=== PATIENT | female | born 1935 | race Caucasian/White ===

== ENCOUNTER 2016-07-19 12:36 | Outpatient (RCR) | payer MEDICARE, OTHER ==
[2016-04-28 11:44] VITALS: BP 181/68
[2016-05-26 12:25] VITALS: BP 156/67
[~2016-07-19] VITALS: Ht 147.3 cm; Wt 53.5 kg
[~2016-07-19 12:36] MED LIST: AC325T PO; ACAI PO; ACAI500C9 PO; ACHD5005; ACHD5005 PO; ALN70T; AMIO200T2 PO; AMLO5TAB2 PO; ASP81TEC PO; ASPI1CPM PO; BROM500T3 PO; Benadryl; C250T PO; CA C1TAB70 PO; CAL MAG PO; CEPH-507 PO; CHOL200018 PO; CINNAMON PO; CLC500CT; CLCX100C; CO-Q10; COQ-10 PO; DILT120C82 PO; E400C PO; ELIQUIS PO; ENOX120D SQ; ENXP30I.3 SC; ENXP60I.6 SQ; EST1.25T; FLC1T; FOLI0.4T2 PO; FOLI0.8T PO; FRSM20T; GLUC-113 PO; GLUC-135 PO; GLUC-138 PO; GLUC1CAP37 PO; HDR2T PO; HDR4T PO; HYDR-3729 PO; KCL10CCR; LECITHIN PO; LEVO250T PO; LIPA1CAP2 PO; LSNP10T PO; MAG-5 PO; MECL-124 PO; MECL25TA56 PO; MELA10CA2 PO; MELA10TA2 PO; MELA1TAB PO; MSM PO; MULT1TAB63 PO; MV-M1TAB20 PO; NEBI5TAB8 PO; NF-DICLOTA; NIAC1CAP PO; NIAC500T8 PO; ONDA2VIA IV; PHYT100T PO; PHYT1LIQ PO; PNT40TEC PO; SCOP1PAT TD; SELE200C PO; SELE200T11 PO; SENN1TAB76 PO; SULF1TAB38; UBID300C PO; VINEGAR PO; VIT B-12; VIT D PO; VITA400T7 PO; VITA800C PO; VITAMIN B-12 IM; VITAMIN B12 INJ; VITAMIN K PO; ZINC100T3 PO; ZINC50TA4 PO; ZINC50TA49 PO; [UNRECOGNIZED DRUG - CODE]; [UNRECOGNIZED DRUG - CODE] PO; [UNRECOGNIZED DRUG - CODE] PO; [UNRECOGNIZED DRUG - OTHER] PO; [UNRECOGNIZED DRUG - OTHER] PO; [UNRECOGNIZED DRUG - REMARK] PO; cinnamon PO; vinegar PO; vitamin k PO
[2016-07-19 12:57] VITALS: BP 162/77
== END 2016-07-27 | disposition home or self-care (01) ==
LOC: SDC 12:36
PROVIDERS: ATTEND Nurse Practitioner Family
DX: Z45.2 Encounter for adjustment and management of vascular access device (principal)
CPT/HCPCS: 96523

== ENCOUNTER 2016-11-03 13:04 | Outpatient (RCR) | payer MEDICARE, OTHER ==
--- OUTSIDE RECORDS SUMMARY | 2016-08-17 12:20 | XMS REPORT | Continuity of Care Document ---
Author Author [facility] Organization [facility] Address Unknown Phone Unavailable Allergies Active Description Code Type Severity Reaction Onset Reported/Identified Relationship to Patient Clinical Status Yes oxycodone [id number] Drug Allergy Unknown N/A 02/28/2007 Yes adhesive tape [id number] Drug Allergy Unknown N/A 07/28/2008 Yes diclofenac [id number] Drug Allergy Unknown N/A 09/18/2015 Yes gluten [id number] Drug Allergy Unknown N/A 09/18/2015 Yes tramadol [id number] Drug Allergy Unknown N/A 09/18/2015 Yes amiodarone [id number] Drug Allergy Moderate LIGHTHEADED 03/02/2016 Yes diltiazem [id number] Drug Allergy Moderate LIGHTHEADED 03/02/2016 Yes flecainide [id number] Drug Allergy Moderate LIGHTHEADED 03/02/2016 Yes oxycodone [id number] Drug Allergy Unknown HAS RECEIVED LO 03/03/2016 Medications Problems Date Dx Coded Attending Type Code Diagnosis Diagnosed By 10/05/2009 Ot 153.9 10/05/2009 Ot 280.9 04/06/2010 Ot 153.9 06/21/2010 Ot 153.9 06/21/2010 Ot V58.81 09/20/2010 Ot 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 09/20/2010 Ot V58.81 FIT/ADJ VASCULAR CATHETER 12/15/2010 Ot 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 12/15/2010 Ot V58.81 FIT/ADJ VASCULAR CATHETER 05/23/2011 Ot 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 05/23/2011 Ot V58.81 FIT/ADJ VASCULAR CATHETER 09/04/2011 Ot 813.42 FX DISTAL RADIUS NEC-CL 09/04/2011 Ot 959.3 ELB/FOREARM/WRST INJ NOS 09/04/2011 Ot E000.8 OTHER EXTERNAL CAUSE STATUS 09/04/2011 Ot E013.9 OTHER HOUSEHOLD MAINTENANCE 09/04/2011 Ot E849.0 ACCIDENT IN HOME 09/04/2011 Ot E885.9 FALL FROM SLIPPING, TRIPPING, OR STUMBLI 09/14/2011 Ot 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 09/14/2011 Ot V58.81 FIT/ADJ VASCULAR CATHETER 10/17/2011 Ot 276.1 HYPOSMOLALITY 10/17/2011 Ot 401.9 HYPERTENSION NOS 10/17/2011 Ot 780.4 DIZZINESS AND GIDDINESS 11/18/2011 Ot 276.1 HYPOSMOLALITY 11/18/2011 Ot 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 11/18/2011 Ot 458.0 ORTHOSTATIC HYPOTENSION 11/18/2011 Ot 780.4 DIZZINESS AND GIDDINESS 11/18/2011 Ot V10.05 HX OF COLONIC MALIGNANCY 11/18/2011 Ot V12.54 PERSONAL HX OF TIA, CEREBRAL INFARCTION 11/18/2011 Ot V45.72 ACQRD ABSENCE INTESTINE - LARGE/SMALL 01/16/2012 Ot 923.10 CONTUSION OF FOREARM 01/16/2012 Ot 959.3 ELB/FOREARM/WRST INJ NOS 01/16/2012 Ot E000.8 OTHER EXTERNAL CAUSE STATUS 01/16/2012 Ot E849.0 ACCIDENT IN HOME 01/16/2012 Ot E888.9 FALL NOS 01/16/2012 Ot V06.1 [id number], COMBINED [ 01/19/2012 Ot 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 01/19/2012 Ot V58.81 FIT/ADJ VASCULAR CATHETER 04/19/2012 Ot 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 04/19/2012 Ot V58.81 FIT/ADJ VASCULAR CATHETER 05/18/2012 Ot 211.3 BENIGN NEOPLASM LG BOWEL 05/18/2012 Ot V10.05 HX OF COLONIC MALIGNANCY 05/18/2012 Ot 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 05/18/2012 Ot V45.72 ACQRD ABSENCE INTESTINE - LARGE/SMALL 05/18/2012 Ot V67.09 SURGERY FOLLOW-UP, OTHER SURGERY 01/07/2013 ALONSO HAWKINS, YESIKA [place] Ot 266.2 B-COMPLEX DEFIC NEC 01/07/2013 ALONSO HAWKINS, YESIKA [place] Ot 276.50 VOLUME DEPLETION, UNSPECIFIED 01/07/2013 ALONSO HAWKINS, YESIKA [place] Ot 285.1 AC POSTHEMORRHAG ANEMIA 01/07/2013 ALONSO HAWKINS, YESIKA [place] Ot 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, NEC, FOLLOW 01/07/2013 YESIKA GUPTA MD Ot 564.1 IRRITABLE BOWEL SYNDROME 01/07/2013 YESIKA GUPTA MD Ot 579.0 CELIAC DISEASE 01/07/2013 YESIKA GUPTA MD Ot 715.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 01/07/2013 YESIKA GUPTA MD Ot 733.00 OSTEOPOROSIS NOS 01/07/2013 YESIKA GUPTA MD Ot 737.30 IDIOPATHIC SCOLIOSIS 01/07/2013 YESIKA GUPTA MD Ot E937.9 ADV EFF SEDAT/HYPNOT NOS 01/07/2013 YESIKA GUPTA MD Ot V10.05 HX OF COLONIC MALIGNANCY 01/07/2013 YESIKA GUPTA MD Ot V12.29 PERSONAL HX OF OTH ENDOCRINE, METABOLIC 01/07/2013 YESIKA GUPTA MD Ot V12.54 PERSONAL HX OF TIA, CEREBRAL INFARCTION 01/07/2013 YESIKA GUPTA MD Ot V45.72 ACQRD ABSENCE INTESTINE - LARGE/SMALL 01/21/2013 SUSAN HAWKINS, ULISES E Ot 041.49 OTHER AND UNSPECIFIED ESCHERICHIA COLI [ 01/21/2013 SUSAN HAWKINS, ULISES E Ot 285.9 ANEMIA NOS 01/21/2013 SUSAN HAWKINS, ULISES E Ot 427.31 ATRIAL FIBRILLATION 01/21/2013 SUSAN HAWKINS, ULISES E Ot 564.1 IRRITABLE BOWEL SYNDROME 01/21/2013 SUSAN HAWKINS ULISES E Ot 579.0 CELIAC DISEASE 01/21/2013 SUSAN HAWKINS ULISES E Ot 599.0 URIN TRACT INFECTION NOS 01/21/2013 SUSAN HAWKINS, ULISES E Ot 788.20 RETENTION OF URINE NOS 01/21/2013 SUSAN HAWKINS ULISES E Ot V43.65 KNEE JOINT REPLACEMENT STATUS 01/21/2013 SUSAN HAWKINS ULISES E Ot V54.81 AFTERCARE FOLLOWING JOINT REPLACEMENT 01/21/2013 ULISES DAVIS MD E Ot V57.89 REHABILITATION PROC NEC 03/07/2013 AVE EM MD Ot 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 03/07/2013 AVE EM MD Ot V58.81 FIT/ADJ VASCULAR CATHETER 03/14/2013 YESIKA GUPTA MD Ot V43.65 KNEE JOINT REPLACEMENT STATUS 03/14/2013 YESIKA GUPTA MD Ot V54.81 AFTERCARE FOLLOWING JOINT REPLACEMENT 03/14/2013 ALONSO HAWKINS, YESIKA [place] Ot V57.1 PHYSICAL THERAPY NEC 06/17/2013 MAR[address] ANTONIA HAWKINS, AVE Ot 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 06/17/[address] AN[address]IA HAWKINS, AVE Ot V58.81 FIT/ADJ VASCULAR CATHETER 09/10/2013 TONY TURNER DO Ot V58.81 FIT/ADJ VASCULAR CATHETER 12/30/2013 TONY TURNER DO Ot V58.81 FIT/ADJ VASCULAR CATHETER 03/03/2014 CATHLEEN HAWKINS, SUZIE [place]ola Ot 531.90 STOMACH ULCER NOS 03/03/2014 CATHLEEN HAWKINS, SUZIE [place]ola Ot 532.90 DUODENAL ULCER NOS 05/12/2014 TONY TURNER DO Ot V58.81 FIT/ADJ VASCULAR CATHETER 06/18/2014 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 Ot V58.81 06/18/2014 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 Ot V58.81 06/18/2014 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 Ot V58.81 08/05/2014 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 Ot V58.81 08/07/2014 DENNISE TURNERRICIA L 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 Ot V58.81 09/05/2014 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 Ot V58.81 09/15/2014 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 Ot V58.81 FIT/ADJ VASCULAR CATHETER 10/14/2014 DENNISE TURNERRICIA L 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 Ot V58.81 10/14/2014 DENNISE TURNERRICIA L 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 Ot V58.81 10/14/2014 DENNISE TURNERRICIA L 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 Ot V58.81 10/14/2014 DENNISE TURNERRICIA L 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 Ot V58.81 10/15/2014 DENINSE TURNERRICIA L 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 Ot V58.81 10/31/2014 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 Ot V58.81 11/12/2014 DENNISE TURNERRICVALERIE Andrade 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 Ot V58.81 12/17/2014 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 L 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 Ot V58.81 12/31/2014 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 L 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 Ot V58.81 01/12/2015 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 Ot V58.81 FIT/ADJ VASCULAR CATHETER 01/29/2015 Ot 259.9 01/29/2015 Ot 268.9 01/29/2015 Ot 780.79 01/29/2015 Ot 153.9 01/29/2015 Ot 259.9 01/29/2015 Ot 259.9 01/29/2015 Ot 153.9 01/29/2015 Ot 259.9 01/29/2015 Ot 270.4 01/29/2015 Ot 780.79 01/29/2015 Ot V58.69 01/29/2015 Ot 153.9 01/29/2015 Ot 153.9 01/29/2015 Ot V58.81 01/29/2015 Ot 259.9 01/29/2015 Ot 153.9 01/29/2015 Ot 259.9 01/29/2015 Ot 733.90 01/29/2015 Ot 153.9 01/29/2015 Ot 259.9 01/29/2015 Ot 733.90 01/29/2015 Ot 780.4 01/29/2015 Ot 784.0 01/29/2015 Ot 786.09 01/29/2015 Ot 786.09 01/29/2015 Ot 786.09 01/29/2015 Ot 796.4 01/29/2015 Ot V72.84 01/29/2015 Ot 786.09 01/29/2015 Ot 259.9 01/29/2015 Ot 268.9 01/29/2015 Ot V77.91 01/29/2015 Ot 153.9 01/29/2015 Ot V58.81 01/29/2015 ALONSO HAWKINS, YESIKA [place] Ot 715.96 01/29/2015 ALONSO HAWKINS, YESIKA [place] Ot 780.79 01/29/2015 ALONSO HAWKINS, YESIKA [place] Ot V72.63 01/29/2015 ALONSO HAWKINS, YESIKA [place] Ot V72.81 01/29/2015 ALONSO HAWKINS, YESIKA [place] Ot V72.83 01/29/2015 ALONSO HAWKINS, YESIKA [place] Ot V74.8 01/29/2015 Ot 153.9 01/29/2015 Ot V58.81 01/29/2015 CATHLEEN HAWKINS, SUZIE [place] Ot V72.84 01/29/2015 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 Ot V58.81 01/29/2015 Ot 259.9 01/29/2015 Ot 268.9 01/29/2015 Ot 780.79 01/29/2015 Ot 153.9 01/29/2015 Ot 259.9 01/29/2015 Ot 259.9 01/29/2015 Ot 153.9 01/29/2015 Ot 259.9 01/29/2015 Ot 270.4 01/29/2015 Ot 780.79 01/29/2015 Ot V58.69 01/29/2015 Ot 153.9 01/29/2015 Ot 153.9 01/29/2015 Ot V58.81 01/29/2015 Ot 259.9 01/29/2015 Ot 153.9 01/29/2015 Ot 259.9 01/29/2015 Ot 733.90 01/29/2015 Ot 153.9 01/29/2015 Ot 259.9 01/29/2015 Ot 733.90 01/29/2015 Ot 780.4 01/29/2015 Ot 784.0 01/29/2015 Ot 786.09 01/29/2015 Ot 786.09 01/29/2015 Ot 786.09 01/29/2015 Ot 796.4 01/29/2015 Ot V72.84 01/29/2015 Ot 786.09 01/29/2015 Ot 259.9 01/29/2015 Ot 268.9 01/29/2015 Ot V77.91 01/29/2015 Ot 153.9 01/29/2015 Ot V58.81 01/29/2015 ALONSO HAWKINS, YESIKA [place] Ot 715.96 01/29/2015 ALONSO HAWKINS, YESIKA [place] Ot 780.79 01/29/2015 ALONSO HAWKINS, YESIKA [place] Ot V72.63 01/29/2015 ALONSO HAWKINS, YESIKA [place] Ot V72.81 01/29/2015 ALONSO HAWKINS, YESIKA [place] Ot V72.83 01/29/2015 ALONSO HAWKINS, YESIKA [place] Ot V74.8 01/29/2015 Ot 153.9 01/29/2015 Ot V58.81 01/29/2015 CATHLEEN HAWKINS, SUZIE [place] Ot V72.84 01/29/2015 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 Ot V58.81 02/20/2015 TONY TURNER DO Ot 733.90 02/27/2015 TONY TURNER DO Ot 611.72 03/02/2015 JOHNNYARNULFO 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 Ot V58.81 03/03/2015 JOHNNY ARNULFO Andrade 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 Ot V58.81 03/03/2015 JOHNNY ARNULFO Andrade 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 Ot V58.81 03/03/2015 JOHNNY ARNULFO Andrade 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 Ot V58.81 03/03/2015 JOHNNY ARNULFO Andrade 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 Ot V58.81 03/06/2015 TONY TURNER DO Ot 733.90 03/06/2015 JOHNNYARNULFO 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 Ot V58.81 03/06/2015 Ot 153.9 03/06/2015 Ot 259.9 03/06/2015 Ot 259.9 03/06/2015 Ot 153.9 03/06/2015 Ot 259.9 03/06/2015 Ot 270.4 03/06/2015 Ot 780.79 03/06/2015 Ot V58.69 03/06/2015 Ot 153.9 03/06/2015 Ot 153.9 03/06/2015 Ot V58.81 03/06/2015 Ot 259.9 03/06/2015 Ot 153.9 03/06/2015 Ot 259.9 03/06/2015 Ot 733.90 03/06/2015 Ot 153.9 03/06/2015 Ot 259.9 03/06/2015 Ot 733.90 03/06/2015 Ot 780.4 03/06/2015 Ot 784.0 03/06/2015 Ot 786.09 03/06/2015 Ot 786.09 03/06/2015 Ot 786.09 03/06/2015 Ot 796.4 03/06/2015 Ot V72.84 03/06/2015 Ot 786.09 03/06/2015 Ot 259.9 03/06/2015 Ot 268.9 03/06/2015 Ot V77.91 03/06/2015 Ot 153.9 03/06/2015 Ot V58.81 03/06/2015 ALONSO HAWKINS, YESIKA [place] Ot 715.96 03/06/2015 ALONSO HAWKINS, YESIKA [place] Ot 780.79 03/06/2015 ALONSO HAWKINS, YESIKA [place] Ot V72.63 03/06/2015 ALONSO HAWKINS, YESIKA [place] Ot V72.81 03/06/2015 ALONSO HAWKINS, YESIKA [place] Ot V72.83 03/06/2015 ALONSO HAWKINS, YESIKA [place] Ot V74.8 03/06/2015 Ot 153.9 03/06/2015 Ot V58.81 03/06/2015 CATHLEEN HAWKINS, SUZIE [place] Ot V72.84 03/06/2015 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 Ot V58.81 03/06/2015 TONY TURNER DO Ot 733.90 03/06/2015 TONY TURNER DO Ot 611.72 03/13/2015 TONY TURNER DO Ot 611.72 03/31/2015 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 Ot V58.81 04/06/2015 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 Ot V58.81 04/08/2015 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 Ot V58.81 FIT/ADJ VASCULAR CATHETER 05/04/2015 Ot 259.9 05/04/2015 Ot 153.9 05/04/2015 Ot 259.9 05/04/2015 Ot 270.4 05/04/2015 Ot 780.79 05/04/2015 Ot V58.69 05/04/2015 Ot 153.9 05/04/2015 Ot 153.9 05/04/2015 Ot V58.81 05/04/2015 Ot 259.9 05/04/2015 Ot 153.9 05/04/2015 Ot 259.9 05/04/2015 Ot 733.90 05/04/2015 Ot 153.9 05/04/2015 Ot 259.9 05/04/2015 Ot 733.90 05/04/2015 Ot 780.4 05/04/2015 Ot 784.0 05/04/2015 Ot 786.09 05/04/2015 Ot 786.09 05/04/2015 Ot 786.09 05/04/2015 Ot 796.4 05/04/2015 Ot V72.84 05/04/2015 Ot 786.09 05/04/2015 Ot 259.9 05/04/2015 Ot 268.9 05/04/2015 Ot V77.91 05/04/2015 Ot 153.9 05/04/2015 Ot V58.81 05/04/2015 YESIKA GUPTA MD Ot 715.96 05/04/2015 YESIKA GUPTA MD Ot 780.79 05/04/2015 ALONSO HAWKINS, YESIKA [place] Ot V72.63 05/04/2015 ALONSO HAWKINS, YESIKA [place] Ot V72.81 05/04/2015 ALONSO HAWKINS, YESIKA [place] Ot V72.83 05/04/2015 ALONSO HAWKINS, YESIKA [place] Ot V74.8 05/04/2015 Ot 153.9 05/04/2015 Ot V58.81 05/04/2015 CATHLEEN HAWKINS, SUZIE [place] Ot V72.84 05/04/2015 TONY TURNER DO Ot 733.90 05/04/2015 TONY TURNER DO Ot 611.72 05/04/2015 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 Ot V58.81 05/04/2015 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 Ot V58.81 05/05/2015 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 Ot V58.81 06/01/2015 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 Ot Z45.2 06/25/2015 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 Ot Z45.2 07/28/2015 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 Ot Z45.2 08/02/2015 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 Ot Z45.2 ENCOUNTER FOR ADJUSTMENT AND MANAGEMENT 08/19/2015 MASON BELLO MD Ot K63.5 POLYP OF COLON 08/19/2015 MASON BELLO MD Ot K64.0 FIRST DEGREE HEMORRHOIDS 08/19/2015 MASON BELLO MD Ot Z85.038 PERSONAL HISTORY OF MALIGNANT NEOPLASM O 09/12/2015 KUMAR REED MD Ot I10 ESSENTIAL (PRIMARY) HYPERTENSION 09/12/2015 KUMAR REED MD Ot I48.91 UNSPECIFIED ATRIAL FIBRILLATION 09/12/2015 KUMAR REED MD Ot Z79.02 SURFACE LOGGING SYSTEMS LOGGER (CURRENT) USE OF ANTITHROMBOTI 09/17/2015 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 Ot Z45.2 09/18/2015 Ot 153.9 09/18/2015 Ot 153.9 09/18/2015 Ot V58.81 09/18/2015 Ot 259.9 09/18/2015 Ot 153.9 09/18/2015 Ot 259.9 09/18/2015 Ot 733.90 09/18/2015 Ot 153.9 09/18/2015 Ot 259.9 09/18/2015 Ot 733.90 09/18/2015 Ot 780.4 09/18/2015 Ot 784.0 09/18/2015 Ot 786.09 09/18/2015 Ot 786.09 09/18/2015 Ot 786.09 09/18/2015 Ot 796.4 09/18/2015 Ot V72.84 09/18/2015 Ot 786.09 09/18/2015 Ot 259.9 09/18/2015 Ot 268.9 09/18/2015 Ot V77.91 09/18/2015 Ot 153.9 09/18/2015 Ot V58.81 09/18/2015 ALONSO HAWKINS, YESIKA [place] Ot 715.96 09/18/2015 ALONSO HAWKINS, YESIKA P Ot 780.79 09/18/2015 ALONSO HAWKINS, YESIKA P Ot V72.63 09/18/2015 ALONSO HAWKINS, YESIKA P Ot V72.81 09/18/2015 ALONSO HAWKINS, YESIKA P Ot V72.83 09/18/2015 ALOSNO HAWKINS, YESIKA P Ot V74.8 09/18/2015 Ot 153.9 09/18/2015 Ot V58.81 09/18/2015 CATHLEEN HAWKINS, SUZIE [place] Ot V72.84 09/18/2015 TONY TURNER DO Ot 733.90 09/18/2015 TONY TURNER DO Ot 611.72 09/18/2015 TONY TURNER DO Ot M41.9 09/18/2015 TONY TURNER DO Ot M54.2 09/18/2015 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 Ot Z45.2 09/18/2015 MASON BELLO MD Ot Z01.818 09/18/2015 MASON BELLO MD Ot Z85.038 09/18/2015 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 Ot Z45.2 09/18/2015 Ot 153.9 09/18/2015 Ot V58.81 09/18/2015 TONY TURNER DO Ot M41.9 09/18/2015 TONY TURNER DO Ot M54.2 09/18/2015 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 Ot Z45.2 09/18/2015 TONY TURNER DO Ot M41.9 09/18/2015 TONY TURNER DO Ot M54.2 09/18/2015 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 Ot Z45.2 09/21/2015 TONY TURNER DO Ot I48.91 10/02/2015 Ot 153.9 10/02/2015 Ot 153.9 10/02/2015 Ot V58.81 10/02/2015 Ot 259.9 10/02/2015 Ot 153.9 10/02/2015 Ot 259.9 10/02/2015 Ot 733.90 10/02/2015 Ot 153.9 10/02/2015 Ot 259.9 10/02/2015 Ot 733.90 10/02/2015 Ot 780.4 10/02/2015 Ot 784.0 10/02/2015 Ot 786.09 10/02/2015 Ot 786.09 10/02/2015 Ot 786.09 10/02/2015 Ot 796.4 10/02/2015 Ot V72.84 10/02/2015 Ot 786.09 10/02/2015 Ot 259.9 10/02/2015 Ot 268.9 10/02/2015 Ot V77.91 10/02/2015 Ot 153.9 10/02/2015 Ot V58.81 10/02/2015 ALONSO HAWKINS, YESIKA [place] Ot 715.96 10/02/2015 ALONSO HAWKINS, YESIKA [place] Ot 780.79 10/02/2015 ALONSO HAWKINS, YESIKA [place] Ot V72.63 10/02/2015 ALONSO HAWKINS, YESIKA [place] Ot V72.81 10/02/2015 ALNOSO HAWKINS, YESIKA [place] Ot V72.83 10/02/2015 ALONSO HAWKINS, YESIKA [place] Ot V74.8 10/02/2015 Ot 153.9 10/02/2015 Ot V58.81 10/02/2015 CATHLEEN HAWKINS, SUZIE [place] Ot V72.84 10/02/2015 TONY TURNER DO Ot 733.90 10/02/2015 TONY TURNER DO Ot 611.72 10/02/2015 TONY TURNER DO Ot M41.9 10/02/2015 TONY TURNER DO Ot M54.2 10/02/2015 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 Ot Z45.2 10/02/2015 EUGENIA HAWKINS, MASON Ot Z01.818 10/02/2015 MASON BELLO MD Ot Z85.038 10/02/2015 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 Ot Z45.2 10/02/2015 TONY TURNER DO Ot I48.2 10/02/2015 TONY TURNER DO Ot I48.91 10/02/2015 ARIANE MUNROE MD, Ot I48.91 UNSPECIFIED ATRIAL FIBRILLATION 10/02/2015 ARIANE MUNROE MD, Ot Z79.01 DETENTION (CURRENT) USE OF ANTICOAGULANT 10/02/2015 ARIANE MUNROE MD Ot Z79.4 SURFACE LOGGING SYSTEMS LOGGER (CURRENT) USE OF INSULIN 10/05/2015 ARIANE MUNROE MD, Ot I48.91 10/05/2015 ARIANE MUNROE MD, Ot Z79.01 10/05/2015 ARIANE MUNROE MD, Ot Z79.4 10/13/2015 TONY TURNER DO Ot I48.2 10/14/2015 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P Ot Z45.2 10/15/2015 TONY TURNER DO Ot I48.91 10/15/2015 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 Ot Z45.2 10/25/2015 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P Ot Z45.2 ENCOUNTER FOR ADJUSTMENT AND MANAGEMENT 10/26/2015 TONY TURNER DO Ot I48.2 CHRONIC ATRIAL FIBRILLATION 10/27/2015 TONY TURNER DO Ot I48.91 UNSPECIFIED ATRIAL FIBRILLATION 11/04/2015 TONY TURNER DO Ot M41.9 SCOLIOSIS, UNSPECIFIED 11/04/2015 TONY TURNER DO Ot M54.5 LOW BACK PAIN 11/10/2015 HONORIO ABBOTT APRN Ot I48.91 UNSPECIFIED ATRIAL FIBRILLATION 11/10/2015 HONORIO ABBOTT APRN Ot S61.212A LACERATION W/O FB OF R MID FINGER W/O DA 11/10/2015 HONORIO ABBOTT APRN Ot S61.216A LAC W/O FB OF R LITTLE FINGER W/O DAMAGE 11/10/2015 HONORIO ABBOTT APRN Ot W45.8XXA OTH FOREIGN BODY OR OBJECT ENTERING THRO 11/10/2015 HONORIO ABBOTT APRN Ot Y92.009 [facility] PL[facility] IN [facility] NON-INSTITUT ( PRIVATE 11/10/2015 HONORIO ABBOTT PLASTICS SHEET FINISHING PRESS OPERATOR Ot Y99.8 OTHER EXTERNAL CAUSE STATUS 11/10/2015 HONORIO ABBOTT PLASTICS SHEET FINISHING PRESS OPERATOR Ot Z23 ENCOUNTER FOR IMMUNIZATION 11/10/2015 HONORIO ABBOTT APRN Ot Z79.01 DETENTION (CURRENT) USE OF ANTICOAGULANT 11/11/2015 TONY TURNER DO Ot E87.1 HYPO-OSMOLALITY AND HYPONATREMIA 11/12/2015 TONY TURNER DO Ot E87.1 HYPO-OSMOLALITY AND HYPONATREMIA 11/23/2015 TONY RANDALL MD Ot I48.0 PAROXYSMAL ATRIAL FIBRILLATION 11/23/2015 TONY RANDALL MD, Ot I48.0 PAROXYSMAL ATRIAL FIBRILLATION 11/25/2015 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P Ot Z45.2 ENCOUNTER FOR ADJUSTMENT AND MANAGEMENT 11/25/2015 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P Ot Z45.2 ENCOUNTER FOR ADJUSTMENT AND MANAGEMENT 11/26/2015 TONY RANDALL MD Ot I48.0 PAROXYSMAL ATRIAL FIBRILLATION 11/29/2015 TONY TURNER DO Ot M41.9 SCOLIOSIS, UNSPECIFIED 11/29/2015 TONY TURNER DO Ot M54.5 LOW BACK PAIN 11/30/2015 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 Ot Z45.2 ENCOUNTER FOR ADJUSTMENT AND MANAGEMENT 12/01/2015 TONY TURNER DO Ot E87.1 HYPO-OSMOLALITY AND HYPONATREMIA 12/15/2015 TONY RANDALL MD Ot I48.0 PAROXYSMAL ATRIAL FIBRILLATION 12/16/2015 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 Ot Z45.2 ENCOUNTER FOR ADJUSTMENT AND MANAGEMENT 12/29/2015 TONY RANDALL MD Ot I48.0 PAROXYSMAL ATRIAL FIBRILLATION 01/06/2016 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 Ot Z45.2 ENCOUNTER FOR ADJUSTMENT AND MANAGEMENT 01/06/2016 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 Ot Z45.2 ENCOUNTER FOR ADJUSTMENT AND MANAGEMENT 02/19/2016 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 Ot Z45.2 ENCOUNTER FOR ADJUSTMENT AND MANAGEMENT 03/02/2016 Ot 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 03/02/2016 Ot V58.81 FIT/ADJ VASCULAR CATHETER 03/02/2016 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 Ot Z45.2 ENCOUNTER FOR ADJUSTMENT AND MANAGEMENT 03/02/2016 MASON BELLO MD, Ot K40.90 UNIL INGUINAL HERNIA, W/O OBST OR GANGR, 03/02/2016 MASON BELLO MD, Ot Z01.818 ENCOUNTER FOR OTHER PREPROCEDURAL EXAMIN 03/03/2016 Ot 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 03/03/2016 Ot V58.81 FIT/ADJ VASCULAR CATHETER 03/03/2016 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 Ot Z45.2 ENCOUNTER FOR ADJUSTMENT AND MANAGEMENT 03/03/2016 MASON BELLO MD Ot I48.91 UNSPECIFIED ATRIAL FIBRILLATION 03/03/2016 MASON BELLO MD, Ot K40.90 UNIL INGUINAL HERNIA, W/O OBST OR GANGR, 03/03/2016 MASON BELLO MD Ot Z79.02 DETENTION (CURRENT) USE OF ANTITHROMBOTI 03/03/2016 MASON BELLO MD Ot Z85.038 PERSONAL HISTORY OF MALIGNANT NEOPLASM O 03/04/2016 MASON BELLO MD, Ot K40.90 UNIL INGUINAL HERNIA, W/O OBST OR GANGR, 03/04/2016 MASON BELLO MD Ot Z01.818 ENCOUNTER FOR OTHER PREPROCEDURAL EXAMIN 03/07/2016 MASON BELLO MD, Ot I48.91 UNSPECIFIED ATRIAL FIBRILLATION 03/07/2016 MASON BELLO MD, Ot K40.90 UNIL INGUINAL HERNIA, W/O OBST OR GANGR, 03/07/2016 MASON BELLO MD Ot Z79.02 DETENTION (CURRENT) USE OF ANTITHROMBOTI 03/07/2016 MASON BELLO MD Ot Z85.038 PERSONAL HISTORY OF MALIGNANT NEOPLASM O 03/09/2016 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 Ot Z45.2 ENCOUNTER FOR ADJUSTMENT AND MANAGEMENT 03/09/2016 Ot 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 03/09/2016 Ot 259.9 ENDOCRINE DISORDER NOS 03/09/2016 Ot 733.90 BONE CARTILAGE DIS NOS 03/09/2016 Ot 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 03/09/2016 Ot 259.9 ENDOCRINE DISORDER NOS 03/09/2016 Ot 733.90 BONE CARTILAGE DIS NOS 03/09/2016 Ot 780.4 DIZZINESS AND GIDDINESS 03/09/2016 Ot 784.0 HEADACHE 03/09/2016 Ot 786.09 RESPIRATORY ABNORM NEC 03/09/2016 Ot 786.09 RESPIRATORY ABNORM NEC 03/09/2016 Ot 786.09 RESPIRATORY ABNORM NEC 03/09/2016 Ot 796.4 ABN CLINICAL FINDING NEC 03/09/2016 Ot V72.84 EXAM PRE-OPERATIVE NOS 03/09/2016 Ot 786.09 RESPIRATORY ABNORM NEC 03/09/2016 Ot 259.9 ENDOCRINE DISORDER NOS 03/09/2016 Ot 268.9 VITAMIN D DEFICIENCY NOS 03/09/2016 Ot V77.91 SCREEN LIPOID DISORDERS 03/09/2016 Ot 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 03/09/2016 Ot V58.81 FIT/ADJ VASCULAR CATHETER 03/09/2016 ALONSO HAWKINS, YESIKA [place] Ot 715.96 OSTEOARTHROS NOS-L/LEG 03/09/2016 YESIKA GUPTA MD Ot 780.79 OTH MALAISE FATIGUE 03/09/2016 YESIKA GUPTA MD Ot V72.63 PRE-PROCEDURAL LABORATORY EXAMINATION 03/09/2016 YESIKA GUPTA MD Ot V72.81 BXHI-AQA-CENBFSZVE CARDIOVASCULAR 03/09/2016 YESIKA GUPTA MD Ot V72.83 EXAM PRE-OPERATIVE NEC 03/09/2016 YESIKA GUPTA MD Ot V74.8 SCREEN-BACTERIAL DIS NEC 03/09/2016 Ot 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 03/09/2016 Ot V58.81 FIT/ADJ VASCULAR CATHETER 03/09/2016 CATHLEEN HAWKINS, SUZIE [place] Ot V72.84 EXAM PRE-OPERATIVE NOS 03/09/2016 TONY TURNER DO Ot 733.90 BONE CARTILAGE DIS NOS 03/09/2016 TONY TURNER DO Ot 611.72 LUMP OR MASS IN BREAST 03/09/2016 EUGENIA HAWKINS, MASON Ot Z01.818 ENCOUNTER FOR OTHER PREPROCEDURAL EXAMIN 03/09/2016 MASON BELLO MD Ot Z85.038 PERSONAL HISTORY OF MALIGNANT NEOPLASM O 03/09/2016 TONY TURNER DO Ot I48.2 CHRONIC ATRIAL FIBRILLATION 03/09/2016 TONY TURNER DO Ot I48.91 UNSPECIFIED ATRIAL FIBRILLATION 03/09/2016 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 Ot Z45.2 ENCOUNTER FOR ADJUSTMENT AND MANAGEMENT 03/09/2016 TONY TURNER DO Ot E87.1 HYPO-OSMOLALITY AND HYPONATREMIA 03/09/2016 TONIA HAWKINS, TONY Bhat Ot I48.0 PAROXYSMAL ATRIAL FIBRILLATION 03/09/2016 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 Ot Z45.2 ENCOUNTER FOR ADJUSTMENT AND MANAGEMENT 03/10/2016 TONY TURNER DO Ot R55 SYNCOPE AND COLLAPSE 03/23/2016 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 Ot Z45.2 ENCOUNTER FOR ADJUSTMENT AND MANAGEMENT 03/31/2016 TONY TURNER DO Ot R55 SYNCOPE AND COLLAPSE 04/05/2016 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 Ot Z45.2 ENCOUNTER FOR ADJUSTMENT AND MANAGEMENT 04/06/2016 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 Ot Z45.2 ENCOUNTER FOR ADJUSTMENT AND MANAGEMENT 04/11/2016 TONY TURNER DO Ot R55 SYNCOPE AND COLLAPSE 04/11/2016 TONY TURNER DO Ot R55 SYNCOPE AND COLLAPSE 04/25/2016 TONY TURNER DO Ot R55 SYNCOPE AND COLLAPSE 04/28/2016 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 L 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 Ot Z45.2 ENCOUNTER FOR ADJUSTMENT AND MANAGEMENT 04/28/2016 JANET TURNERIA L 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 Ot Z45.2 ENCOUNTER FOR ADJUSTMENT AND MANAGEMENT 05/16/2016 JANET TURNERIA Raymond 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 Ot Z45.2 ENCOUNTER FOR ADJUSTMENT AND MANAGEMENT 05/26/2016 JANET TURNERIA L 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 Ot Z45.2 ENCOUNTER FOR ADJUSTMENT AND MANAGEMENT 06/01/2016 JANET TURNERIA L 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 Ot Z45.2 ENCOUNTER FOR ADJUSTMENT AND MANAGEMENT 06/07/2016 TONY TURNER DO Ot R55 SYNCOPE AND COLLAPSE 06/17/2016 JANET TURNERIA L 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 Ot Z45.2 ENCOUNTER FOR ADJUSTMENT AND MANAGEMENT 07/19/2016 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 Ot Z45.2 ENCOUNTER FOR ADJUSTMENT AND MANAGEMENT 07/19/2016 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 L 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 Ot Z45.2 ENCOUNTER FOR ADJUSTMENT AND MANAGEMENT 07/20/2016 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 Ot Z45.2 ENCOUNTER FOR ADJUSTMENT AND MANAGEMENT 07/27/2016 JOHNNY ARNULFO Raymond JACKSON Ot Z45.2 ENCOUNTER FOR ADJUSTMENT AND MANAGEMENT Procedures Code Description Performed By Performed On 81.54 01/02/2013 Results Test Result Range Methicillin resistant Staphylococcus aureus (MRSA) screening culture - 11:50 Methicillin resistant Staphylococcus aureus (MRSA) screening culture NEG NRG Automated blood complete blood count (hemogram) panel - 03/03/16 12:01 Blood leukocytes automated count (number/volume) 8.1 10*3/ uL 4.3-11.0 Blood erythrocytes automated count (number/volume) 3.97 10*6 /uL 4.35-5.85 Venous blood hemoglobin measurement (mass/volume) 12.4 g/dL 11.5-16.0 Blood hematocrit (volume fraction) 37 % 35-52 Automated erythrocyte mean corpuscular volume 92 [foz_us] 80-99 Automated erythrocyte mean corpuscular hemoglobin (mass per erythrocyte) 31 pg 25-34 Automated erythrocyte mean corpuscular hemoglobin concentration measurement ( mass/volume) 34 g/dL 32-36 Automated erythrocyte distribution width ratio 14.2 % 10.0-14.5 Automated blood platelet count (count/volume) 222 10*3/uL 130-400 Automated blood platelet mean volume measurement 10.5 [foz_ us] 7.4-10.4 Encounters ACCT No. Visit Date/Time Discharge Status Pt. Type Provider Facility Loc./Unit Complaint [id number] 07/19/2016 12:36:00 2016 00:01:00 DIS Outpatient 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 Via [facility] [id number] 03/09/2016 11:11:00 2015 00:01:00 DIS Outpatient TONY TURNER DO Via [facility] CARD SYNCOPE [id number] 01/06/2016 12:48:00 2015 00:01:00 DIS Outpatient 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 Via [facility] [id number] 03/03/2016 11:35:00 2015 18:45:00 DIS Outpatient MASON BELLO MD Via [facility] RIGHT INGUINAL HERNIA [id number] 03/02/2016 08:44:00 2015 09:34:00 DIS Outpatient MASON BELLO MD Via [facility] PREOP RIGHT INGUINAL HERNIA [id number] 11/25/2015 13:58:00 2015 00:01:00 DIS Outpatient 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 Via [facility] [place] [id number] 11/10/2015 21:10:00 2015 22:54:00 DIS Emergency HONORIO ABBOTT APRN Via [facility] ER R HAND FINGER INJ [id number] 10/01/2015 09:57:00 2015 00:01:00 DIS Outpatient TONY TURNER DO Via [facility] REHAB LUMBAGO; SCOLIOSIS [id number] 07/27/2015 09:51:00 2015 00:01:00 DIS Outpatient 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P Via [facility] [place] [id number] 10/02/2015 00:19:00 2015 02:14:00 DIS Emergency ARIANE MUNROE MD Via [facility] ER A-FIB [id number] 09/12/2015 20:34:00 2015 21:45:00 DIS Emergency KUMAR REED MD Via [facility] ER IRR HEART RATE/SOA [id number] 08/19/2015 09:34:00 2015 13:35:00 DIS Outpatient MASON BELLO MD Via [facility] HISTORY OF COLON CANCER [id number] 05/04/2015 11:57:00 2015 00:01:00 DIS Outpatient 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P Via [facility] [place] [id number] 04/06/2015 11:05:00 2014 00:01:00 DIS 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[facility] [place] [id number] 02/06/2015 09:53:00 2014 23:59:59 CLS Outpatient TONY TURNER DO Via [facility] RAD LUMP HEMATOMA [id number] 01/29/2015 08:13:00 2014 23:59:59 CLS Outpatient TONY TURNER DO Via [facility] RAD OSTEOPORSIS [id number] 12/17/2014 11:02:00 2014 00:01:00 DIS 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[facility] PORT [id number] 08/05/2014 11:07:00 2014 23:59:59 CLS 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[facility] PORT [id number] 05/02/2014 13:47:00 2013 00:01:00 [id number] 03/03/2014 07:19:00 2013 10:40:00 DIS Outpatient SUZIE CONNOLLY MD Via [facility] UPPER GASTRIC PAIN; ABDOMINAL PAIN [id number] 02/27/2014 09:14:00 2013 23:59:59 CLS Outpatient SUZIE CONNOLLY MD Via [facility] PREOP UPPER GASTRIC PAIN; ABDOMINAL PAIN [id number] 12/19/2013 11:24:00 2013 00:01:00 DIS [facility] [id number] 07/22/2013 11:37:00 2013 00:01:00 DIS [facility] [id number] 06/12/2013 10:52:00 2012 00:01:[address] EM MD Via [facility] FLU [id number] 03/12/2013 08:54:00 2012 10:53:00 DIS Outpatient YESIKA GUPTA MD Via [facility] REHAB B TKR [id number] 12/07/2012 11:41:00 2012 00:01:00 DIS Outpatient MARIA ANTONIA HAWKINS, GARCIALindyIDANIA Via [facility] ONC PORT FLUSH [id number] 01/07/2013 10:10:00 2012 12:30:00 DIS Inpatient SUSAN HAWKINS, ULISES Law Via [facility] IRF DEGENERATIVE ARTHRITIS [id number] 01/02/2013 06:05:00 2012 10:10:00 DIS Inpatient YESIKA GUPTA MD Via [facility] SURGICAL DEGENERATIVE ARTHRITIS [id number] 12/26/2012 09:47:00 2012 23:59:59 CLS Outpatient YESIKA GUPTA MD Via [facility] PREOP DEGENERATIVE ARTHRITIS [id number] 07/28/2016 00:10:00 PEN Preadmit 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 [id number] 06/08/2016 11:30:00 PEN Preadmit TONY TURNER DO Via [facility] CARD SYNCOPE [id number] 03/18/2016 13:25:00 ACT Outpatient TONY TURNER DO Via [facility] RAD R55 [id number] 11/20/2015 14:07:00 ACT Outpatient TONY RANDALL MD Via [facility] CARD PROXYSMAL A FIB [id number] 11/10/2015 21:25:00 ACT Outpatient TONY TURNER DO Via [facility] LABNPT Cachexia and hypernatremia [id number] 11/05/2015 00:08:00 PEN Preadmit TONY TURNER DO Via [facility] REHAB [id number] 10/26/2015 00:08:00 PEN Preadmit 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 [id number] 09/18/2015 07:23:00 ACT Outpatient TONY TURNER DO Via [facility] CARD UNSPECIFIED A-FIB [id number] 09/17/2015 13:05:00 ACT Outpatient TONY TURNER DO Via [facility] CARD CHRONIC A-FIB I48.2 [id number] 08/18/2015 05:39:00 ACT Outpatient MASON BELLO MD Via [facility] PREOP SCREENING [id number] 01/29/2015 08:10:00 Document Registration [id number] 01/29/2015 08:09:00 Document Registration [id number] 01/29/2015 08:09:00 Document Registration [id number] 01/29/2015 08:09:00 Document Registration [id number] 01/29/2015 08:09:00 Document Registration [id number] 01/29/2015 08:09:00 Document Registration [id number] 06/18/2013 00:00:00 Document Registration [id number] 10/19/2012 13:42:00 Document Registration [id number] 08/22/2012 08:23:00 Document Registration [id number] 05/18/2012 09:04:00 Document Registration [id number] 05/17/2012 07:23:00 Document Registration [id number] 05/16/2012 06:44:00 Document Registration [id number] 04/20/2012 09:49:00 Document Registration [id number] 04/11/2012 05:59:00 Document Registration [id number] 04/03/2012 10:24:00 Document Registration [id number] 01/16/2012 10:05:00 Document Registration [id number] 11/16/2011 22:00:00 Document Registration [id number] 10/26/2011 08:59:00 Document Registration [id number] 10/21/2011 11:12:00 Document Registration [id number] 10/15/2011 19:35:00 Document Registration [id number] 09/04/2011 07:50:00 Document Registration [id number] 08/31/2011 10:41:00 Document Registration [id number] 12/21/2010 08:38:00 Document Registration [id number] 12/21/2010 08:26:00 Document Registration [id number] 10/19/2010 11:29:00 Document Registration [id number] 09/10/2010 11:45:00 Document Registration [id number] 07/20/2010 13:25:00 Document Registration [id number] 04/21/2010 15:03:00 Document Registration [id number] 03/23/2010 09:31:00 Document Registration [id number] 01/06/2010 08:26:00 Document Registration [id number] 11/27/2009 08:20:00 Document Registration [id number] 09/30/2009 08:47:00 Document Registration [id number] 09/30/2009 08:40:00 Document Registration [id number] 08/31/2009 10:14:00 Document Registration
[2016-08-17 12:42] VITALS: BP 161/82
[2016-10-06 13:40] VITALS: BP 154/78
[~2016-11-03] VITALS: Ht 147.3 cm; Wt 53.5 kg
[2016-11-03 13:40] VITALS: BP 184/87
== END 2016-11-15 | disposition home or self-care (01) ==
LOC: SDC 13:04
PROVIDERS: ATTEND Nurse Practitioner Family
DX: Z45.2 Encounter for adjustment and management of vascular access device (principal)
CPT/HCPCS: 96523

== ENCOUNTER 2016-12-28 09:05 | Outpatient (CLI) | payer MEDICARE, OTHER ==
[~2016-12-28] VITALS: Ht 147.3 cm; Wt 54.4 kg
[2016-12-28] MEDS ORDERED: DIGO125T PO (13:23)
[2016-12-28] MEDS ORDERED: CA C1TAB78 PO (13:23)
[2016-12-28] MEDS ORDERED: FEXO180T84 PO (13:23)
[2016-12-28] MEDS ORDERED: VITA400C58 PO (13:23)
[2016-12-28] MEDS ORDERED: FERR160T5 PO (13:23)
[2016-12-28] MEDS ORDERED: LACT1CAP64 PO (13:23)
[2016-12-28] MEDS ORDERED: APIX5TAB PO (13:23)
[2016-12-28] MEDS ORDERED: DISO150C3 PO (13:23)
[2016-12-28] MEDS ORDERED: CHOL3000 PO (13:23)
[2016-12-28] MEDS ORDERED: [UNRECOGNIZED DRUG - CODE] PO (13:23)
[2016-12-28] MEDS ORDERED: POTA99TA21 PO (13:23)
[2016-12-28] MEDS ORDERED: LIPA1CAP4 PO (13:23)
[2016-12-28] MEDS ORDERED: UBID400C6 PO (13:23)
== END 2016-12-28 13:47 ==
LOC: PREOP 09:05
PROVIDERS: ATTEND Surgery Pediatric Surgery
DX: Z01.818 Encounter for other preprocedural examination (principal); K43.2 Incisional hernia without obstruction or gangrene

== ENCOUNTER 2017-01-05 08:57 | Day surgery (SDC) | payer MEDICARE, OTHER ==
[~2017-01-05] VITALS: Ht 147.3 cm; Wt 54.4 kg
[~2017-01-05 08:57] MED LIST changes: +APIX5TAB PO; +CA C1TAB78 PO; +CHOL3000 PO; +DIGO125T PO; +DISO150C3 PO; +FERR160T5 PO; +FEXO180T84 PO; +LACT1CAP64 PO; +LIPA1CAP4 PO; +POTA99TA21 PO; +UBID400C6 PO; +VITA400C58 PO; +[UNRECOGNIZED DRUG - CODE] PO
[2017-01-05] MEDS ORDERED: ceFAZolin 1 GM/NS 50 ML IVPB IV ONE ×2 (09:30)
[2017-01-05 09:41] LABS: MEAN PLATELET VOLUME 10.1 FL (7.4-10.4); RED BLOOD COUNT 3.79 10^6/uL (4.35-5.85); RED CELL DISTRIBUTION WIDTH 14.6 % (10.0-14.5); WHITE BLOOD COUNT 7.1 10^3/uL (4.3-11.0)
[2017-01-05] MEDS ORDERED: LACTATED RINGERS 1,000 ML IV PRN (09:45)
[2017-01-05 09:46] VITALS: BP 189/71
[2017-01-05] MEDS ORDERED: LACTATED RINGERS 1,000 ML IV ONE (10:08)
[2017-01-05] MEDS ORDERED: fentaNYL INJECTION 100 MCG/2 ML AMP ONE (10:08)
[2017-01-05] MEDS ORDERED: DEXAMETHASONE PF 10 MG/ML (DECADRON) VIAL ONE (10:08)
[2017-01-05] MEDS ORDERED: SEVOFLURANE (ULTANE) 15 ML INHAL SOLN ONE ×2 (10:08→11:41)
[2017-01-05] MEDS ORDERED: ONDANSETRON 4 MG/2 ML (SDV) Z0FRAN ONE (10:08)
[2017-01-05] MEDS ORDERED: LIDOCAINE PF 2% 5 ML (XYLOCAINE) VIAL ONE (10:08)
[2017-01-05] MEDS ORDERED: proPOfol 200 MG/20 ML (DIPRIVAN) VIAL IV ONE (10:08)
[2017-01-05] MEDS ORDERED: BUP/EPI 0.5% 1:200,000 (MARCAINE) 10ML VIAL IJ ONE ×2 (10:17)
--- NOTE | 2017-01-05 10:25 | Progress Note-Pre Operative ---
Pre-Operative Progress Note H&P Reviewed The H&P was reviewed, patient examined and no changes noted. Date Seen by Provider: Jan 05, 2017 Time Seen by Provider: 10:00 Date H&P Reviewed: Jan 05, 2017 Time H&P Reviewed: 10:00 Pre-Operative Diagnosis: symptomatic umblical incisional hernia MASON BELLO MD Jan 05, 2017 10:25
[2017-01-05] MEDS ORDERED: HYDROcodone/APAP 5 MG/325 MG (LORTAB) TAB PO ONE (10:30)
[2017-01-05] MEDS ORDERED: ACETAMINOPHEN 325 MG TABLET/CAPLET (TYLENOL) PO PRN (10:30)
[2017-01-05] MEDS ORDERED: morphine INJ 10 MG/ML 1ML (SYR OR VIAL) IVP PRN ×2 (10:30→12:00)
[2017-01-05] MEDS ORDERED: ONDANSETRON 4 MG/2 ML (SDV) Z0FRAN IVP PRN ×2 (10:30→12:00)
--- OUTSIDE RECORDS SUMMARY | 2017-01-05 10:31 | XMS REPORT | Continuity of Care Document ---
Author Author [facility] Organization [facility] Address Unknown Phone Unavailable Allergies Active Description Code Type Severity Reaction Onset Reported/Identified Relationship to Patient Clinical Status Yes oxycodone [id number] Drug Allergy Unknown N/A 02/28/2007 Yes oxycodone [id number] Drug Allergy Unknown HAS RECEIVED LO 03/03/2016 Yes amiodarone [id number] Drug Allergy Moderate LIGHTHEADED 12/28/2016 Yes diltiazem [id number] Drug Allergy Moderate LIGHTHEADED 12/28/2016 Yes flecainide [id number] Drug Allergy Moderate LIGHTHEADED 12/28/2016 Yes adhesive tape [id number] Drug Allergy Unknown N/A 12/28/2016 Yes diclofenac [id number] Drug Allergy Unknown N/A 12/28/2016 Yes gluten [id number] Drug Allergy Unknown N/A 12/28/2016 Yes tramadol [id number] Drug Allergy Unknown N/A 12/28/2016 Medications Problems Date Dx Coded Attending Type [...] Ot E888.9 FALL NOS 01/16/2012 Ot V06.1 [id number], COMBINED [ 01/19/2012 Ot 153.9 MALIGNANT SARA [...] [place] Ot 276.50 VOLUME DEPLETION, UNSPECIFIED 01/07/2013 LAONSO HAWKINS, YESIKA [place] Ot 285.1 AC POSTHEMORRHAG [...] V58.81 FIT/ADJ VASCULAR CATHETER 06/18/2014 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 BUSINESS DEVELOPMENT RECRUITER Ot V58.81 06/18/2014 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 BUSINESS DEVELOPMENT RECRUITER Ot V58.81 06/18/2014 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 BUSINESS DEVELOPMENT RECRUITER Ot V58.81 08/05/2014 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 BUSINESS DEVELOPMENT RECRUITER Ot V58.81 08/07/2014 DENNISE TURNERRICIA L BUSINESS DEVELOPMENT RECRUITER Ot V58.81 09/05/2014 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 BUSINESS DEVELOPMENT RECRUITER Ot V58.81 09/15/2014 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 BUSINESS DEVELOPMENT RECRUITER Ot V58.81 FIT/ADJ VASCULAR CATHETER 10/14/2014 DENNISE TURNERRICIA L BUSINESS DEVELOPMENT RECRUITER Ot V58.81 10/14/2014 DENNISE TURNERRICIA L BUSINESS DEVELOPMENT RECRUITER Ot V58.81 10/14/2014 DENNISE TURNERRICIA L BUSINESS DEVELOPMENT RECRUITER Ot V58.81 10/14/2014 DENNISE TURNERRICIA L BUSINESS DEVELOPMENT RECRUITER Ot V58.81 10/15/2014 DENNISE TURNERRICIA L BUSINESS DEVELOPMENT RECRUITER Ot V58.81 10/31/2014 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 BUSINESS DEVELOPMENT RECRUITER Ot V58.81 11/12/2014 DENNISE TURNERRICVALERIE Andrade BUSINESS DEVELOPMENT RECRUITER Ot V58.81 12/17/2014 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 L BUSINESS DEVELOPMENT RECRUITER Ot V58.81 12/31/2014 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 L BUSINESS DEVELOPMENT RECRUITER Ot V58.81 01/12/2015 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 BUSINESS DEVELOPMENT RECRUITER Ot V58.81 FIT/ADJ VASCULAR CATHETER 01/29/2015 Ot [...] SUZIE Noyola Ot V72.84 01/29/2015 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 BUSINESS DEVELOPMENT RECRUITER Ot V58.81 01/29/2015 Ot 259.9 01/29/2015 Ot [...] TONY TURNER DO Ot 611.72 03/02/2015 JOHNNYARNULFO BUSINESS DEVELOPMENT RECRUITER Ot V58.81 03/03/2015 JOHNNY ARNULFO Andrade BUSINESS DEVELOPMENT RECRUITER Ot V58.81 03/03/2015 JOHNNY ARNULFO Andrade BUSINESS DEVELOPMENT RECRUITER Ot V58.81 03/03/2015 JOHNNY ARNULFO Andrade BUSINESS DEVELOPMENT RECRUITER Ot V58.81 03/03/2015 JOHNNY ARNULFO Andrade BUSINESS DEVELOPMENT RECRUITER Ot V58.81 03/06/2015 TONY TURNER DO Ot 733.90 03/06/2015 JOHNNYARNULFO BUSINESS DEVELOPMENT RECRUITER Ot V58.81 03/06/2015 Ot 153.9 03/06/2015 Ot [...] SUZIE Noyola Ot V72.84 03/06/2015 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 BUSINESS DEVELOPMENT RECRUITER Ot V58.81 03/06/2015 TONY TURNER DO Ot 733.90 03/06/2015 TONY TURNER DO Ot 611.72 03/13/2015 TONY TURNER DO Ot 611.72 03/31/2015 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 BUSINESS DEVELOPMENT RECRUITER Ot V58.81 04/06/2015 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 BUSINESS DEVELOPMENT RECRUITER Ot V58.81 04/08/2015 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 BUSINESS DEVELOPMENT RECRUITER Ot V58.81 FIT/ADJ VASCULAR CATHETER 05/04/2015 Ot [...] TURNER DO Ot 611.72 05/04/2015 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 BUSINESS DEVELOPMENT RECRUITER Ot V58.81 05/04/2015 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 BUSINESS DEVELOPMENT RECRUITER Ot V58.81 05/05/2015 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 BUSINESS DEVELOPMENT RECRUITER Ot V58.81 06/01/2015 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 BUSINESS DEVELOPMENT RECRUITER Ot Z45.2 06/25/2015 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 BUSINESS DEVELOPMENT RECRUITER Ot Z45.2 07/28/2015 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 BUSINESS DEVELOPMENT RECRUITER Ot Z45.2 08/02/2015 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 BUSINESS DEVELOPMENT RECRUITER Ot Z45.2 ENCOUNTER FOR ADJUSTMENT AND MANAGEMENT 08/19/2015 MASON BELLO MD Ot K63.5 POLYP OF COLON 08/19/2015 MASON BELLO MD Ot K64.0 FIRST DEGREE HEMORRHOIDS 08/19/2015 MASNO BELLO MD Ot Z85.038 PERSONAL HISTORY OF MALIGNANT NEOPLASM O 09/12/2015 KUMAR REED MD Ot I10 ESSENTIAL (PRIMARY) HYPERTENSION 09/12/2015 KUMAR REED MD Ot I48.91 UNSPECIFIED ATRIAL FIBRILLATION 09/12/2015 KUMAR REED MD Ot Z79.02 EM PHYSICIAN (CURRENT) USE OF ANTITHROMBOTI 09/17/2015 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 BUSINESS DEVELOPMENT RECRUITER Ot Z45.2 09/18/2015 Ot 153.9 09/18/2015 Ot [...] ALONSO HAWKINS, YESIKA P Ot V72.83 09/18/2015 ALONSO HAWKINS, YESIKA P Ot V74.8 09/18/2015 Ot [...] M54.2 09/18/2015 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 Ot Z45.2 09/18/2015 TOYN TURNER DO Ot M41.9 09/18/2015 TONY TURNER [...] ALONSO HAWKINS, YESIKA [place] Ot V72.81 10/02/2015 ALONSO HAWKINS, YESIKA [place] Ot V72.83 10/02/2015 ALONSO HAWKINS, YESIKA [place] Ot V74.8 10/02/2015 Ot 153.9 10/02/2015 Ot V58.81 10/02/2015 CATHLEEN HAWKINS, SUZIE Noyola Ot V72.84 10/02/2015 TONY TURNER DO Ot 733.90 10/02/2015 TONY TURNER DO Ot 611.72 10/02/2015 TONY TURNER DO Ot M41.9 10/02/2015 TONY TURNER DO Ot M54.2 10/02/2015 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 BUSINESS DEVELOPMENT RECRUITER Ot Z45.2 10/02/2015 EUGENIA HAWKINS, MASON Ot Z01.818 10/02/2015 MASON BELLO MD Ot Z85.038 10/02/2015 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 BUSINESS DEVELOPMENT RECRUITER Ot Z45.2 10/02/2015 TONY TURNER DO Ot I48.2 10/02/2015 TONY TURNER DO Ot I48.91 10/02/2015 ARIANE MUNROE MD, Ot I48.91 UNSPECIFIED ATRIAL FIBRILLATION 10/02/2015 ARIANE MUNROE MD, Ot Z79.01 LONGTERM (CURRENT) USE OF ANTICOAGULANT 10/02/2015 ARIANE MUNROE MD Ot Z79.4 EM PHYSICIAN (CURRENT) USE OF INSULIN 10/05/2015 ARIANE MUNROE MD, Ot I48.91 10/05/2015 ARIANE MUNROE MD, Ot Z79.01 10/05/2015 ARIANE MUNROE MD, Ot Z79.4 10/13/2015 TONY TURNER DO Ot I48.2 10/14/2015 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P Ot Z45.2 10/15/2015 TONY TURNER DO Ot I48.91 10/15/2015 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 BUSINESS DEVELOPMENT RECRUITER Ot Z45.2 10/25/2015 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P Ot Z45.2 [...] THRO 11/10/2015 HONORIO ABBOTT APRN Ot Y92.[address] [facility] [address] IN [facility] NON-INSTITUT ( PRIVATE 11/10/2015 HONORIO ABBOTT CERTIFIED ADAPTED PHYSICAL EDUCATOR Ot Y99.8 OTHER EXTERNAL CAUSE STATUS 11/10/2015 HONORIO ABBOTT CERTIFIED ADAPTED PHYSICAL EDUCATOR Ot Z23 ENCOUNTER FOR IMMUNIZATION 11/10/2015 HONORIO ABBOTT APRN Ot Z79.01 LONGTERM (CURRENT) USE OF ANTICOAGULANT 11/11/2015 TONY TURNER [...] M54.5 LOW BACK PAIN 11/30/2015 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 BUSINESS DEVELOPMENT RECRUITER Ot Z45.2 ENCOUNTER FOR ADJUSTMENT AND MANAGEMENT 12/01/2015 TONY TURNER DO Ot E87.1 HYPO-OSMOLALITY AND HYPONATREMIA 12/15/2015 TONY RANDALL MD Ot I48.0 PAROXYSMAL ATRIAL FIBRILLATION 12/16/2015 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 BUSINESS DEVELOPMENT RECRUITER Ot Z45.2 ENCOUNTER FOR ADJUSTMENT AND MANAGEMENT 12/29/2015 TONY RANDALL MD Ot I48.0 PAROXYSMAL ATRIAL FIBRILLATION 01/06/2016 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 BUSINESS DEVELOPMENT RECRUITER Ot Z45.2 ENCOUNTER FOR ADJUSTMENT AND MANAGEMENT 01/06/2016 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 BUSINESS DEVELOPMENT RECRUITER Ot Z45.2 ENCOUNTER FOR ADJUSTMENT AND MANAGEMENT 02/19/2016 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 BUSINESS DEVELOPMENT RECRUITER Ot Z45.2 ENCOUNTER FOR ADJUSTMENT AND MANAGEMENT [...] GANGR, 03/03/2016 MASON BELLO MD Ot Z79.02 LONGTERM (CURRENT) USE OF ANTITHROMBOTI 03/03/2016 MASON BELLO [...] GANGR, 03/07/2016 MASON BELLO MD Ot Z79.02 LONGTERM (CURRENT) USE OF ANTITHROMBOTI 03/07/2016 MASON BELLO [...] EXAMINATION 03/09/2016 YESIKA GUPTA MD Ot V72.81 [id number] CARDIOVASCULAR 03/09/2016 YESIKA GUPTA MD Ot V72.83 [...] I48.91 UNSPECIFIED ATRIAL FIBRILLATION 03/09/2016 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 BUSINESS DEVELOPMENT RECRUITER Ot Z45.2 ENCOUNTER FOR ADJUSTMENT AND MANAGEMENT 03/09/2016 TONY TURNER DO Ot E87.1 HYPO-OSMOLALITY AND HYPONATREMIA 03/09/2016 TONIA HAWKINS, TONY Bhat Ot I48.0 PAROXYSMAL ATRIAL FIBRILLATION 03/09/2016 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 BUSINESS DEVELOPMENT RECRUITER Ot Z45.2 ENCOUNTER FOR ADJUSTMENT AND MANAGEMENT 03/10/2016 TONY TURNER DO Ot R55 SYNCOPE AND COLLAPSE 03/23/2016 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 BUSINESS DEVELOPMENT RECRUITER Ot Z45.2 ENCOUNTER FOR ADJUSTMENT AND MANAGEMENT 03/31/2016 TONY TURNER DO Ot R55 SYNCOPE AND COLLAPSE 04/05/2016 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 BUSINESS DEVELOPMENT RECRUITER Ot Z45.2 ENCOUNTER FOR ADJUSTMENT AND MANAGEMENT 04/06/2016 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 BUSINESS DEVELOPMENT RECRUITER Ot Z45.2 ENCOUNTER FOR ADJUSTMENT AND MANAGEMENT 04/11/2016 TONY TURNER DO Ot R55 SYNCOPE AND COLLAPSE 04/11/2016 TONY TURNER DO Ot R55 SYNCOPE AND COLLAPSE 04/25/2016 TONY TURNER DO Ot R55 SYNCOPE AND COLLAPSE 04/28/2016 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 L BUSINESS DEVELOPMENT RECRUITER Ot Z45.2 ENCOUNTER FOR ADJUSTMENT AND MANAGEMENT 04/28/2016 JANET TURNERIA L BUSINESS DEVELOPMENT RECRUITER Ot Z45.2 ENCOUNTER FOR ADJUSTMENT AND MANAGEMENT 05/16/2016 JANET TURNERIA Raymond BUSINESS DEVELOPMENT RECRUITER Ot Z45.2 ENCOUNTER FOR ADJUSTMENT AND MANAGEMENT 05/26/2016 JANET TURNERIA L BUSINESS DEVELOPMENT RECRUITER Ot Z45.2 ENCOUNTER FOR ADJUSTMENT AND MANAGEMENT 06/01/2016 JANET TURNERIA L BUSINESS DEVELOPMENT RECRUITER Ot Z45.2 ENCOUNTER FOR ADJUSTMENT AND MANAGEMENT 06/07/2016 TONY TURNER DO Ot R55 SYNCOPE AND COLLAPSE 06/17/2016 JANET TURNERIA L BUSINESS DEVELOPMENT RECRUITER Ot Z45.2 ENCOUNTER FOR ADJUSTMENT AND MANAGEMENT 07/19/2016 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 BUSINESS DEVELOPMENT RECRUITER Ot Z45.2 ENCOUNTER FOR ADJUSTMENT AND MANAGEMENT 07/19/2016 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 L BUSINESS DEVELOPMENT RECRUITER Ot Z45.2 ENCOUNTER FOR ADJUSTMENT AND MANAGEMENT 07/20/2016 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 BUSINESS DEVELOPMENT RECRUITER Ot Z45.2 ENCOUNTER FOR ADJUSTMENT AND MANAGEMENT 07/27/2016 TURNERARNULFO MARAVILLA BUSINESS DEVELOPMENT RECRUITER Ot Z45.2 ENCOUNTER FOR ADJUSTMENT AND MANAGEMENT 08/17/2016 Ot 780.4 DIZZINESS AND GIDDINESS 08/17/2016 Ot 784.0 HEADACHE 08/17/2016 Ot 786.09 RESPIRATORY ABNORM NEC 08/17/2016 Ot 786.09 RESPIRATORY ABNORM NEC 08/17/2016 Ot 786.09 RESPIRATORY ABNORM NEC 08/17/2016 Ot 796.4 ABN CLINICAL FINDING NEC 08/17/2016 Ot V72.84 EXAM PRE-OPERATIVE NOS 08/17/2016 Ot 786.09 RESPIRATORY ABNORM NEC 08/17/2016 Ot 259.9 ENDOCRINE DISORDER NOS 08/17/2016 Ot 268.9 VITAMIN D DEFICIENCY NOS 08/17/2016 Ot V77.91 SCREEN LIPOID DISORDERS 08/17/2016 Ot 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 08/17/2016 Ot V58.81 FIT/ADJ VASCULAR CATHETER 08/17/2016 ALONSO HAWKINS, YESIKA [place] Ot 715.96 OSTEOARTHROS NOS-L/LEG 08/17/2016 YESIKA GUPTA MD Ot 780.79 OTH MALAISE FATIGUE 08/17/2016 YESIKA GUPTA MD Ot V72.63 PRE-PROCEDURAL LABORATORY EXAMINATION 08/17/2016 YESIKA GUPTA MD Ot V72.81 [id number] CARDIOVASCULAR 08/17/2016 YESIKA GUPTA MD Ot V72.83 EXAM PRE-OPERATIVE NEC 08/17/2016 YESIKA GUPTA MD Ot V74.8 SCREEN-BACTERIAL DIS NEC 08/17/2016 Ot 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 08/17/2016 Ot V58.81 FIT/ADJ VASCULAR CATHETER 08/17/2016 CATHLEEN HAWKINS, SUZIE Noyola Ot V72.84 EXAM PRE-OPERATIVE NOS 08/17/2016 TONY TURNER DO Ot 733.90 BONE CARTILAGE DIS NOS 08/17/2016 TONY TURNER DO Ot 611.72 LUMP OR MASS IN BREAST 08/17/2016 MASON BELLO MD Ot Z01.818 ENCOUNTER FOR OTHER PREPROCEDURAL EXAMIN 08/17/2016 MASON BELLO MD Ot Z85.038 PERSONAL HISTORY OF MALIGNANT NEOPLASM O 08/17/2016 TONY TURNER DO Ot I48.2 CHRONIC ATRIAL FIBRILLATION 08/17/2016 TONY TURNER DO Ot I48.91 UNSPECIFIED ATRIAL FIBRILLATION 08/17/2016 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 BUSINESS DEVELOPMENT RECRUITER Ot Z45.2 ENCOUNTER FOR ADJUSTMENT AND MANAGEMENT 08/17/2016 TONY TURNER DO Ot E87.1 HYPO-OSMOLALITY AND HYPONATREMIA 08/17/2016 TONY RANDALL MD Ot I48.0 PAROXYSMAL ATRIAL FIBRILLATION 08/17/2016 TONY TURNER DO Ot R55 SYNCOPE AND COLLAPSE 08/17/2016 TONY TURNER DO, Ot R55 SYNCOPE AND COLLAPSE 08/17/2016 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 BUSINESS DEVELOPMENT RECRUITER Ot Z45.2 ENCOUNTER FOR ADJUSTMENT AND MANAGEMENT 08/17/2016 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 BUSINESS DEVELOPMENT RECRUITER Ot Z45.2 ENCOUNTER FOR ADJUSTMENT AND MANAGEMENT 09/12/2016 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 BUSINESS DEVELOPMENT RECRUITER Ot Z45.2 ENCOUNTER FOR ADJUSTMENT AND MANAGEMENT 09/29/2016 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 BUSINESS DEVELOPMENT RECRUITER Ot Z45.2 ENCOUNTER FOR ADJUSTMENT AND MANAGEMENT 10/06/2016 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 BUSINESS DEVELOPMENT RECRUITER Ot Z45.2 ENCOUNTER FOR ADJUSTMENT AND MANAGEMENT 10/21/2016 JANET TURNERIA Raymond BUSINESS DEVELOPMENT RECRUITER Ot Z45.2 ENCOUNTER FOR ADJUSTMENT AND MANAGEMENT 11/03/2016 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 BUSINESS DEVELOPMENT RECRUITER Ot Z45.2 ENCOUNTER FOR ADJUSTMENT AND MANAGEMENT 11/15/2016 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 BUSINESS DEVELOPMENT RECRUITER Ot Z45.2 ENCOUNTER FOR ADJUSTMENT AND MANAGEMENT 12/07/2016 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 BUSINESS DEVELOPMENT RECRUITER Ot Z45.2 ENCOUNTER FOR ADJUSTMENT AND MANAGEMENT 12/07/2016 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 BUSINESS DEVELOPMENT RECRUITER Ot Z45.2 ENCOUNTER FOR ADJUSTMENT AND MANAGEMENT 12/09/2016 JANET TURNERIA L BUSINESS DEVELOPMENT RECRUITER Ot Z45.2 ENCOUNTER FOR ADJUSTMENT AND MANAGEMENT 12/13/2016 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 L BUSINESS DEVELOPMENT RECRUITER Ot Z45.2 ENCOUNTER FOR ADJUSTMENT AND MANAGEMENT 12/28/2016 Ot 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 Type Provider Facility Loc./Unit Complaint [id number] 12/28/2016 09:05:00 2016 13:47:00 DIS Outpatient MASON BELLO MD [facility] PREOP OPEN REPAIR INC. HERNIA WITH MESH [id number] 11/03/2016 13:04:00 2016 00:01:00 DIS Outpatient 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 [facility] [place] [id number] 07/19/2016 12:36:00 2016 00:01:00 DIS Outpatient 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 [facility] [place] [id number] 03/09/2016 11:11:00 2015 00:01:00 DIS Outpatient TONY TURNER DO [facility] CARD SYNCOPE [id number] 01/06/2016 12:48:00 2015 00:01:00 DIS Outpatient 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 [facility] [place] [id number] 03/03/2016 11:35:00 2015 18:45:00 DIS Outpatient MASON BELLO MD [facility] RIGHT INGUINAL HERNIA [id number] 03/02/2016 08:44:00 2015 09:34:00 DIS Outpatient MASON BELLO MD [facility] PREOP RIGHT INGUINAL HERNIA [id number] 11/25/2015 13:58:00 2015 00:01:00 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 [id number] 11/10/2015 21:10:00 2015 22:54:00 DIS Emergency HONORIO ABBOTT APRN [facility] ER R HAND FINGER INJ [id number] 10/01/2015 09:57:00 2015 00:01:00 DIS Outpatient TONY TURNER DO [facility] REHAB LUMBAGO; SCOLIOSIS [id number] 07/27/2015 09:51:00 2015 00:01:00 DIS Outpatient 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 [id number] 10/02/2015 00:19:00 2015 02:14:00 DIS Emergency ARIANE MUNROE MD [facility] ER A-FIB [id number] 09/12/2015 20:34:00 2015 21:45:00 DIS Emergency KUMAR REED MD [facility] ER IRR HEART RATE/SOA [id number] 08/19/2015 09:34:00 2015 13:35:00 DIS Outpatient MASON BELLO MD [facility] HISTORY OF COLON CANCER [id number] 05/04/2015 11:57:00 2015 00:01:00 DIS Outpatient TURNERARNULFO MIR BUSINESS DEVELOPMENT RECRUITER [facility] [id number] 04/06/2015 11:05:00 2014 00:01:00 DIS Outpatient 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 BUSINESS DEVELOPMENT RECRUITER [facility] [id number] 02/06/2015 09:53:00 2014 23:59:59 CLS Outpatient TONY TURNER DO [facility] RAD LUMP HEMATOMA [id number] 01/29/2015 08:13:00 2014 23:59:59 CLS Outpatient TONY TURNER DO [facility] RAD OSTEOPORSIS [id number] 12/17/2014 11:02:00 2014 00:01:00 DIS Outpatient 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 BUSINESS DEVELOPMENT RECRUITER [facility] PORT [id number] 08/05/2014 11:07:00 2014 23:59:59 CLS Outpatient TURNER, ARNULFO L BUSINESS DEVELOPMENT RECRUITER [facility] [id number] 05/02/2014 13:47:00 2013 00:01:00 DIS Outpatient TONY TURNER DO [facility] PORT [id number] 03/03/2014 07:19:00 2013 10:40:00 DIS Outpatient SUZIE CONNOLLY MD [facility] UPPER GASTRIC PAIN; ABDOMINAL PAIN [id number] 02/27/2014 09:14:00 2013 23:59:59 CLS Outpatient SUZIE CONNOLLY MD [facility] PREOP UPPER GASTRIC PAIN; ABDOMINAL PAIN [id number] 12/19/2013 11:24:00 2013 00:01:00 DIS Outpatient TONY TURNER DO [facility] PORT [id number] 07/22/2013 11:37:00 2013 00:01:00 DIS Outpatient TONY TURNER DO [facility] PORT [id number] 06/12/2013 10:52:00 2012 00:01:[address] EM MD [facility] ONC PORT FLUSH [id number] 03/12/2013 08:54:00 2012 10:53:00 DIS Outpatient YESIKA GUPTA MD [facility] REHAB B TKR [id number] 12/07/2012 11:41:00 2012 00:01:[address] EM MD [facility] ONC PORT FLUSH [id number] 01/07/2013 10:10:00 2012 12:30:00 DIS Inpatient ULISES DAVIS MD [facility] IRF DEGENERATIVE ARTHRITIS [id number] 01/02/2013 06:05:00 2012 10:10:00 DIS Inpatient YESIKA GUPTA MD [facility] SURGICAL DEGENERATIVE ARTHRITIS [id number] 12/26/2012 09:47:00 2012 23:59:59 CLS Outpatient YESIKA GUPTA MD [facility] PREOP DEGENERATIVE ARTHRITIS [id number] 01/05/2017 10:00:00 PEN Preadmit MASON BELLO MD [facility] REDUCIBLE INCISIONAL ABDOMINAL HERNIA [id number] 12/07/2016 10:49:00 ACT Outpatient 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 [facility] [place] [id number] 06/08/2016 11:30:00 PEN Preadmit TONY TURNER DO [facility] CARD SYNCOPE [id number] 03/18/2016 13:25:00 ACT Outpatient TONY TURNER DO [facility] RAD R55 [id number] 11/20/2015 14:07:00 ACT Outpatient TONY RANDALL MD [facility] CARD PROXYSMAL A FIB [id number] 11/10/2015 21:25:00 ACT Outpatient TONY TURNER DO [facility] LABNPT Cachexia and hypernatremia [id number] 11/05/2015 00:08:00 PEN Preadmit JOHNNY KEITA TONY Home [facility] REHAB [id number] 10/26/2015 00:08:00 PEN Preadmit 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 [facility] JOSE ROBERTO PORT [id number] 09/18/2015 07:23:00 ACT Outpatient JOHNNY KEITA TONY Home [facility] CARD UNSPECIFIED A-FIB [id number] 09/17/2015 13:05:00 ACT Outpatient JOHNNY KEITA TONY Home [facility] CARD CHRONIC A-FIB I48.2 [id number] 08/18/2015 05:39:00 ACT Outpatient MASON BELLO MD [facility] PREOP SCREENING [id number] 01/29/2015 08:10:00 Document Registration [id number] 01/29/2015 08:09:00 Document Registration [id number] 01/29/2015 08:09:00 Document Registration [id number] 01/29/2015 08:09:00 Document Registration [id number] 01/29/2015 08:09:00 Document Registration [id number] 01/29/2015 08:09:00 Document Registration [id number] 06/18/2013 00:00:00 Document Registration [id number] 10/19/2012 13:42:00 Document Registration [id number] 08/22/2012 08:23:00 Document Registration [id number] 05/18/2012 09:04:00 Document Registration [id number] 05/17/2012 07:23:00 Document Registration [id number] 05/16/2012 06:44:00 Document Registration [id number] 04/20/2012 09:49:00 Document Registration [id number] 04/11/2012 05:59:00 Document Registration [id number] 04/03/2012 10:24:00 Document Registration [id number] 01/16/2012 10:05:00 Document Registration [id number] 11/16/2011 22:00:00 Document Registration [id number] 10/26/2011 08:59:00 Document Registration [id number] 10/21/2011 11:12:00 Document Registration [id number] 10/15/2011 19:35:00 Document Registration [id number] 09/04/2011 07:50:00 Document Registration [id number] 08/31/2011 10:41:00 Document Registration [id number] 12/21/2010 08:38:00 Document Registration [id number] 12/21/2010 08:26:00 Document Registration [id number] 10/19/2010 11:29:00 Document Registration [id number] 09/10/2010 11:45:00 Document Registration [id number] 07/20/2010 13:25:00 Document Registration [id number] 04/21/2010 15:03:00 Document Registration [id number] 03/23/2010 09:31:00 Document Registration [id number] 01/06/2010 08:26:00 Document Registration [id number] 11/27/2009 08:20:00 Document Registration [id number] 09/30/2009 08:47:00 Document Registration [id number] 09/30/2009 08:40:00 Document Registration [id number] 08/31/2009 10:14:00 Document Registration
[2017-01-05] MEDS ORDERED: NEURO PS PO (10:41)
[2017-01-05] MEDS ORDERED: AMLO2.5T PO (10:41)
[2017-01-05] MEDS ORDERED: FOLI0.8C PO (10:41)
--- NOTE | 2017-01-05 11:50 | Progress Note-Post Operative ---
Post-Operative Progess Note Surgeon (s)/[employer] Hand Finisher (s) Surgeon MASON BELLO MD [employer] Hand Finisher: ricki gonzalez DIRECTOR OF EXHIBITS Pre-Operative Diagnosis symptomatic umblical incisional hernia Post-Operative Diagnosis same Procedure & Operative Findings Date of Procedure 01/05/17 Procedure Performed/Findings umbilical incisional hernia repair with mesh. Anesthesia Type GET Estimated Blood Loss Estimated blood loss (mL): minimal Specimens/Packing Specimens Removed none MASON BELLO MD Jan 05, 2017 11:50 am
[2017-01-05] MEDS ORDERED: HYDR-3816 PO (11:53)
--- NOTE | 2017-01-05 11:53 | Discharge Inst-Surgical ---
D/C Lap Instructions-EUGENIA New, Converted, or Re-Newed RX: RX on Chart Follow Up Appt in 2 weeks Activity as tolerated No driving for 24 hours [address] while on pain medications Incentive Spirometry use every 2 hours while awake Regular Diet Symptoms to Report: Fever over 101 degree F, Nausea/Vomiting Infection Signs and Symptoms to report: Increased redness, Foul odor of wound, Increased drainage Bathing instructions: May shower Operative Area Clean/Dry; Keep incision clean/dry If any problems/questions: Contact your physician or go to Emergency Room MASON BELLO MD Jan 05, 2017 11:53 am
[2017-01-05 12:50] VITALS: BP 150/74
[2017-01-05] MEDS ORDERED: HYDROcodone/APAP 5 MG/325 MG (LORTAB) TAB ONE (12:50)
[2017-01-05 13:20] VITALS: BP 164/71
[2017-01-05 13:50] VITALS: BP 154/68
[2017-01-05 15:05] VITALS: BP 154/68
--- NOTE | 2017-01-08 23:59 | OPERATIVE REPORT ---
PROCEDURE PHYSICIAN: MASON NGUYEN DATE OF PROCEDURE: 01/05/2017 ATTENDING PRIMARY CARE PHYSICIAN: Dr. Eagle. PREOPERATIVE DIAGNOSIS: Ventral abdominal incisional hernia. POSTOPERATIVE DIAGNOSIS: Ventral abdominal incisional hernia. PROCEDURE: Open ventral abdominal incisional hernia repair with mesh. SURGEON: Dr. Nguyen. MILITARY SCIENCE TEACHER: Marek Ramirez. LUIS. ANESTHESIA: General endotracheal. ESTIMATED BLOOD LOSS: Minimal. FINDINGS: Small hernia defect through a previous midline incision approximately 2 x 2 centimeters in size. DISPOSITION: The patient tolerated the procedure well. Ms. Silvia Zuniga is an 81-year-old female with history of right cancer and status post open hemicolectomy and chemotherapy. In February 2016 she developed intermittent pain in the right inguinal region. She was found to have reducible symptomatic right inguinal hernia. On 03/03/2016 she underwent a laparoscopic right inguinal hernia repair with mesh. From this standpoint, she has done well with no recurrence of hernia. She then developed a small outpouching as well as pain along the mid abdomen, along the previous midline incision in the periumbilical region. She states that this grew larger in size and became painful. Upon examination, she was found to have a ventral abdominal incisional hernia which was reducible. PROCEDURE: The patient was brought to the operating room, laid supine on the table. After adequate IV pain and sedative medications and general endotracheal intubation the abdomen was prepped and draped in standard surgical fashion. 0.5% Marcaine with epinephrine was used to anesthetize the overlying skin. A vertical skin incision then made using a 15 blade. The subcutaneous tissue was then dissected down using electrocautery. The hernia sac was then identified and completely dissected out using electrocautery as well as blunt dissection. The hernia sac was then opened with Metzenbaum scissors with omentum within the hernia sac. The hernia sac was then completely excised using electrocautery. The defect was approximately 2 x 2 cm. The defect was then closed without tension using a 6.4 cm coated polypropylene mesh. The mesh was placed in the peritoneal cavity and multiple concentric interrupted 0 Prolene sutures were used to approximate the fascia to the mesh transfascially. Good hemostasis was observed. The subcutaneous tissue was then reapproximated using 3-0 Vicryl interrupted sutures. Skin was closed using 4-0 Monocryl and a running subcuticular sutures. The wound was then cleaned and covered with tonsil sponges, followed by 4 x 4 gauze, followed by a large OpSite, and then an abdominal binder. The patient tolerated the procedure well. We will start IV and oral pain medication as well as a clear liquid diet. Once she is tolerating clears, has good pain control with oral pain medication and is ambulating well, we will discharge her home. She will be instructed to do no heavy lifting or exertion for the next 6 weeks. Job ID: [id number] Dictated Date: 01/07/2017 16:04:46 Experimental Flight Test Mechanic Date: 01/08/2017 23:52:34 / natalia
== END 2017-01-05 15:05 | disposition home or self-care (01) ==
LOC: SDC 08:57
PROVIDERS: ATTEND Surgery
DX: K43.2 Incisional hernia without obstruction or gangrene (principal); K90.0 Celiac disease; Z85.038 Personal history of other malignant neoplasm of large intestine; D50.9 Iron deficiency anemia, unspecified; M81.0 Age-related osteoporosis without current pathological fracture; E53.8 Deficiency of other specified B group vitamins; I73.9 Peripheral vascular disease, unspecified; I48.91 Unspecified atrial fibrillation; Z86.73 Personal history of transient ischemic attack (TIA), and cerebral infarction without residual deficits; Z79.01 Long term (current) use of anticoagulants; Z79.899 Other long term (current) drug therapy
CPT/HCPCS: 36415; 85027; 87081; 94664

== ENCOUNTER 2017-03-06 10:45 | Outpatient (RCR) | payer MEDICARE, OTHER ==
[2016-12-07 11:10] VITALS: BP 148/75
[~2017-03-06] VITALS: Ht 147.3 cm; Wt 53.5 kg
[~2017-03-06 10:45] MED LIST changes: +AMLO2.5T PO; +FOLI0.8C PO; +HYDR-3816 PO; +NEURO PS PO
[2017-03-06 11:05] VITALS: BP 150/80
== END 2017-03-07 | disposition home or self-care (01) ==
LOC: SDC 10:45
PROVIDERS: ATTEND Nurse Practitioner Family
DX: Z45.2 Encounter for adjustment and management of vascular access device (principal)
CPT/HCPCS: 96523

== ENCOUNTER → 2017-03-09 | Outpatient (CLI) | payer MEDICARE, OTHER ==
--- NOTE | 2017-03-09 13:50 | Diagnostic Imaging Report ---
PROCEDURE: MRI left upper extremity without contrast. TECHNIQUE: Multiplanar, multisequence non contrast-enhanced MRI of the left upper extremity was accomplished. INDICATION: Shoulder and humerus pain. There are no prior studies available for comparison. FINDINGS: The T2 coronal series does show that the rotator cuff has been completely torn and the torn supraspinatus muscle has been retracted to 11 o'clock position of the humeral head. There is also hypertrophy of the acromioclavicular joint and this does result in narrowing of the outlet for the torn supraspinatus muscle. A small amount of fluid is also seen in the subacromial bursa and this does suggest that there may be an element of tendinitis present as well. The labrum is thinned centrally and superiorly and most likely torn on a degenerative basis. The biceps tendon and the subscapularis tendon are intact. There is a small joint effusion present. There is also a fair amount of fluid in the bursa anterior to the shoulder joint. Within this bursa, there is a roughly 1 cm low signal defect. This may represent either a calcification or perhaps a collection of fibrin. There is no abnormal signal arising from the osseous structures to suggest bone edema or a fracture. The proximal humerus was also included on this study and is unremarkable for an acute abnormality as well. IMPRESSION: 1. The rotator cuff has been completely torn and the supraspinatus muscle has been retracted. 2. There is hypertrophy of the acromioclavicular joint and this does result in narrowing of the outlet for the torn supraspinatus muscle. 3. The fluid in the subacromial bursa and in the bursa anterior to the shoulder joint does suggest that there is an element of inflammation present. There may also be a calcification or collection of fibrin within the bursa anterior to the shoulder joint. 4. The labrum is thinned and torn on a degenerative basis. 5. There is no acute bony abnormality appreciated. Dictated by: Dictated on workstation # [id number]
== END ==
LOC: RAD 11:27
PROVIDERS: ATTEND Internal Medicine
DX: M75.122 Complete rotator cuff tear or rupture of left shoulder, not specified as traumatic (principal); S43.402A Unspecified sprain of left shoulder joint, initial encounter; M19.012 Primary osteoarthritis, left shoulder; X58.XXXA Exposure to other specified factors, initial encounter; Y99.8 Other external cause status
CPT/HCPCS: 73221

== ENCOUNTER → 2017-03-24 | Outpatient (CLI) | payer MEDICARE, OTHER ==
--- NOTE | 2017-03-24 13:52 | Diagnostic Imaging Report ---
3 views of the left shoulder. INDICATION: Left shoulder pain. FINDINGS: There is superior subluxation of the shoulder which may relate to rotator cuff tear. No fracture or dislocation seen. The AC joint demonstrate mild degenerative changes without prominent osteophytes. Left subclavian port is seen, and a stent overlying the course of the left common carotid artery is also noted. IMPRESSION: Superior subluxation of the glenohumeral joint is suggestive of underlying rotator cuff tear. Dictated on workstation # [id number]
== END ==
LOC: RAD 10:04
PROVIDERS: ATTEND Internal Medicine
DX: M75.102 Unspecified rotator cuff tear or rupture of left shoulder, not specified as traumatic (principal)
CPT/HCPCS: 73030

== ENCOUNTER 2017-04-10 10:58 | Outpatient (CLI) | payer MEDICARE, OTHER ==
[~2017-04-10] VITALS: Ht 147.3 cm; Wt 58.5 kg
[2017-04-10 11:09] VITALS: BP 132/70
[2017-04-10] MEDS ORDERED: AMLO5TAB2 PO (11:46)
[2017-04-10] MEDS ORDERED: DISO100C4 PO (12:30)
== END 2017-04-10 11:35 | disposition home or self-care (01) ==
LOC: PREOP 10:58
PROVIDERS: ATTEND Orthopaedic Surgery
DX: Z01.818 Encounter for other preprocedural examination (principal); M75.102 Unspecified rotator cuff tear or rupture of left shoulder, not specified as traumatic
CPT/HCPCS: 87081

== ENCOUNTER 2017-04-19 06:03 | Day surgery (SDC) | payer MEDICARE, OTHER ==
--- NOTE | 2017-04-11 16:06 | HISTORY AND PHYSICAL ---
DATE OF SERVICE: This is for outpatient surgery on 04/19/17 for left shoulder arthroscopy with rotator cuff repair. HISTORY: The patient is an 81-year-old female who injured her left shoulder two months ago. She was lifting an item in her kitchen and had her arm extended to the side and felt a tearing sensation, as well as a burning pain. She is right-hand dominant. An MRI revealed a complete retracted supraspinatus tear and due to functional impairment and failure to improve with conservative measures, the patient has elected to proceed with surgical intervention. REVIEW OF SYSTEMS: No chest pain. No shortness of breath. No dysuria. PAST MEDICAL HISTORY: Celiac sprue disease, colon cancer, fatigue, palpitations, anemia, blood transfusions, atrial fibrillation, IBS, CVA. PAST SURGICAL HISTORY: section, dilation and curettage, hysterectomy, rotator cuff repair on the right, cholecystectomy, cataract, bilateral total knee arthroplasty, subclavian stent placement. FAMILY HISTORY: Coronary artery disease, seizure. PRIMARY CARE PROVIDER: Dr. Eagle. MEDICATIONS: 1. Eliquis. 2. Amlodipine. 3. Cyanocobalamin. 4. Zinc. 5. Protonix. 6. Niacin. 7. Vitamin K. 8. Vitamin D. 9. Glucosamine. 10. Probiotic. 11. Melatonin. 12. Folic acid. 13. Potassium. 14. Calcium. 15. Creon. 16. Norpace. ALLERGIES: PERCOCET AND TRAMADOL. SOCIAL HISTORY: The patient denies alcohol or tobacco use. RADIOGRAPHS: Slightly elevated humeral head. MRI is as above. PHYSICAL EXAMINATION: GENERAL: The patient is well-developed, well-nourished in no acute distress. HEENT: Normocephalic, atraumatic. Pupils are equal, round and reactive to light. Oropharynx is clear. NECK: Supple. No lymphadenopathy. LUNGS: Clear to auscultation bilaterally. HEART: Regular rate and rhythm. ABDOMEN: Soft, nontender and nondistended. EXTREMITIES: The left shoulder demonstrates weakness with abduction and external rotation with positive drop arm. Sensation is intact throughout. It shows active of 100 degrees, passively at 160 degrees with a positive Neer's and positive Hawkin's sign. IMPRESSION: Left rotator cuff tear. PLAN: Left shoulder arthroscopy, rotator cuff repair. The risks, benefits, options, ramifications and recovery were discussed, specifically the patient was instructed this may be an tear. She understands and wishes to proceed. Job ID: [id number] DocumentID: [id number] Dictated Date: 04/11/2017 15:09:37 Consulting Manager Date: 04/11/2017 16:06:24 Dictated By: YESIKA GUPTA MD
[~2017-04-19] VITALS: Ht 147.3 cm; Wt 58.5 kg
[~2017-04-19 06:03] MED LIST changes: +DISO100C4 PO
[2017-04-19] MEDS ORDERED: ceFAZolin 1,000 MG (ANCEF) VIAL ONE (06:27)
[2017-04-19] MEDS ORDERED: ONDANSETRON 4 MG/2 ML (SDV) Z0FRAN ONE (06:28)
[2017-04-19] MEDS ORDERED: ROCURONIUM 50 MG/5 ML (ZEMURON) VIAL IV ONE (06:28)
[2017-04-19] MEDS ORDERED: LIDOCAINE PF 2% 5 ML (XYLOCAINE) VIAL ONE (06:28)
[2017-04-19] MEDS ORDERED: fentaNYL INJECTION 100 MCG/2 ML AMP ONE (06:28)
[2017-04-19] MEDS ORDERED: NS (IVPB) 50 ML ONE (06:28)
[2017-04-19] MEDS ORDERED: DEXAMETHASONE 10 MG/ML (DECADRON) 1 ML VIAL ONE (06:28)
[2017-04-19] MEDS ORDERED: MIDAZOLAM 2 MG/2 ML (VERSED) VIAL ONE (06:28)
[2017-04-19] MEDS ORDERED: proPOfol 200 MG/20 ML (DIPRIVAN) VIAL IV ONE (06:28)
[2017-04-19] MEDS ORDERED: LACTATED RINGERS 1,000 ML IV PRN (06:37)
[2017-04-19] MEDS ORDERED: BUPIVACAINE 0.25% 30 ML (SENSORCAINE) VIAL ONE (07:05)
[2017-04-19] MEDS ORDERED: morphine PF (DURAMORPH) 10 MG/10 ML AMP ONE (07:05)
[2017-04-19] MEDS: ceFAZolin 1 GM/NS 50 ML IVPB IV ONE ×4 (07:28→07:37)
--- NOTE | 2017-04-19 07:30 | Progress Note-Pre Operative ---
Pre-Operative Progress Note H&P Reviewed The H&P was reviewed, patient examined and no changes noted. Date Seen by Provider: Apr 19, 2017 Time Seen by Provider: 07:20 Date H&P Reviewed: Apr 19, 2017 Time H&P Reviewed: 07:30 Pre-Operative Diagnosis: left rotator cuff tear YESIKA GUPTA MD Apr 19, 2017 07:30
--- NOTE | 2017-04-19 07:31 | Progress Note-Post Operative ---
Post-Operative Progess Note Surgeon (s)/Wax Ball Molder (s) Surgeon YESIKA GUPTA MD Wax Ball Molder: colleen Rey Pre-Operative Diagnosis left rotator cuff tear Post-Operative Diagnosis left rotator cuff tear and labral tear Procedure & Operative Findings Date of Procedure 04/19/17 Procedure Performed/Findings left shoulder arthroscopic labral debridement, acromioplasty and open rotator cuff repair Anesthesia Type GETA plus interscalene Estimated Blood Loss Estimated blood loss (mL): minimal Specimens/Packing Specimens Removed none Packing: none YESIKA GUPTA MD Apr 19, 2017 07:31
[2017-04-19] MEDS ORDERED: HYDROcodone/APAP 7.5 MG/325 MG (LORTAB, LORCET PLUS) TABLET PO PRN (07:45)
[2017-04-19 08:23] VITALS: BP 186/81
[2017-04-19] MEDS ORDERED: SEVOFLURANE (ULTANE) 15 ML INHAL SOLN ONE (08:39)
[2017-04-19] MEDS ORDERED: NEOSTIGMINE (BLOXIVERZ ) 1 MG/1ML 10 ML VIAL ONE (08:45)
[2017-04-19] MEDS ORDERED: GLYCOPYRROLATE 0.2 MG/ML (ROBINUL) 2 ML VIAL ONE (08:45)
[2017-04-19] MEDS ORDERED: ONDANSETRON 4 MG/2 ML (SDV) Z0FRAN IVP PRN (09:15)
[2017-04-19] MEDS ORDERED: morphine INJ 10 MG/ML 1ML (SYR OR VIAL) IVP PRN (09:15)
[2017-04-19] MEDS ORDERED: LABETALOL HCL 20 MG/4 ML VIAL IV PRN (09:15)
--- NOTE | 2017-04-19 09:19 | Anesthesia-Peripheral Nerve Bl ---
Procedure Start/Stop Time Date of Procedure: Apr 19, 2017 Start Time: 06:50 Stop Time: 07:03 Peripheral Nerve Block Peripheral Nerve Blockade Risk/Benefits/Alternatives discussed, including IV injection leading to complications or seizures, nerve irritation or damage, pneumothorax, total spinal anesthesia, injection, and/or bleeding. Approach: Left Interscalene block Side Confirmed: LEFT Indication: Req Pain Mgmt by Surgeon Specifically requested for management of pain by: Dr. Boone Patient Condition Vital Signs Vital Signs Date Time Temp Pulse Resp B/P (MAP) Pulse Ox O2 Delivery O2 Flow Rate FiO2 04/19/17 08:23 97.6 62 16 186/81 98 Room Air Patient Condition: Sedate/contact maintained Procedure Prepartation: Chlorhexidine Position: Supine [place]: Short-bevel Needle (s) Size: 22g 2" Technique: Ultrasound (Brachial plexus visualized under ultrasound with appropriate needle placement. ) Sedation Given: Fentanyl (50 mcg), Midazolam (1 mg) Injectate: ropivacaine Concentration %: 0.5 Volume (ml): 30 Epinephrine used: No Narrative Injection was made incrementally with constant monitoring. Blood Aspirated: No Pain on injection noted: No Normal Resistance on injection: Yes Events Events: None:easy well tolerated Sucess: Complete Patient Conditon Post Peripheral Nerve Block Post Peripheral Nerve Block Vital Signs: Blood Pressure: Systolic Diastolic Heart Rate Blood Pressure Systolic: 186 Blood Pressure Diastolic: 81 Pulse Rate (adult): 62 ARGENIS CARDOZA CRNA Apr 19, 2017 09:18
[2017-04-19 09:55] VITALS: BP 188/79
[2017-04-19] MEDS ORDERED: HYDR-3816 PO (10:19)
[2017-04-19 10:25] VITALS: BP 188/84
[2017-04-19 10:55] VITALS: BP 184/73
--- NOTE | 2017-04-19 15:41 | OPERATIVE REPORT ---
DATE OF SERVICE: 04/19/2017 PREOPERATIVE DIAGNOSIS: Left rotator cuff tear. POSTOPERATIVE DIAGNOSES: 1. Left rotator cuff tear. 2. Left shoulder labral tear. PROCEDURE: 1. Left shoulder arthroscopic labral debridement. 2. Left shoulder arthroscopic acromioplasty. 3. Left shoulder open rotator cuff repair. SURGEON: Sujit Boone M.D. GROUND TRANSPORTATION OPERATOR: Andrez Rey, who assisted throughout the procedure and closed the incisions. ANESTHESIA: General endotracheal plus interscalene nerve block by Silas Dao CRNA. ESTIMATED BLOOD LOSS: Minimal. DRAINS: None. COMPLICATIONS: None. POSTOPERATIVE PLAN: Passive range of motion and sling wear for 4 weeks. Patient was transported to the recovery room awake and in stable condition. STATEMENT OF MEDICAL NECESSITY: The patient is an 81-year-old right hand dominant female who injured her left shoulder. She fell and heard a pop and since she has had marked weakness and difficulty with forward elevation as well as abduction of her left arm. MRI revealed a large rotator cuff tear with retracted tendons. The patient was counseled that this may be an irreparable tear but due to functional impairment the patient elected to proceed with surgical intervention. Examination under anesthesia revealed forward elevation of 107 degrees, external rotation of 85 degrees, and internal rotation of 70 degrees. Arthroscopic findings demonstrated an absent biceps anchor. There was adjacent labral flap tear between the 11 and 1 o'clock positions. There was diffuse grade 2 chondral loss and central portion of the glenoid. The humeral head demonstrated no gross chondral abnormalities. The subacromial space demonstrated moderate bursitis with sloping of the anterior lateral acromion. The supraspinatus was detached and retracted to near the glenoid. The superior aspect of the subscapularis was disrupted as well. PROCEDURE IN DETAIL: After risks and benefits of procedure were discussed and questions were answered, an informed consent was signed, placed on chart. The operative site was confirmed in the preoperative holding area initialed by the surgeon. The patient was then transferred to the operating room and after adequate levels of regional plus general endotracheal anesthetic were obtained, a timeout was called, confirmed the operative site. Examination under anesthesia was performed with above findings noted. The left shoulder and upper extremity were prepped and draped in the usual sterile fashion. The shoulder joint was injected with 20 mL of fluid as was the subacromial space. Standard posterior portal was placed and under direct visualization, the anterior portal was created in the interval between the glenoid and the subscapularis. The labrum was debrided back to a stable edge at the detached labral site. The scope was redirected into the subacromial space and the lateral portal was created and bursectomy was performed and the acromion was planed to a flat type 1 acromion. The lateral portal was then extended. The deltoid was split in line with its fibers. A bleeding bony bed was prepared just off the articular surface. The rotator cuff was mobilized and the anterior leaf and the posterior leaf were then brought over the top and a corkscrew anchor was used for both leaves with a modified Lenny-Antelmo repair performed and excellent repair obtained with no undue tension at the repair site. The wound was copiously irrigated. The deltoid was repaired in a [id number] fashion using #2 fiberwire in a [id number] interrupted fashion. The wound was further irrigated. A 2-0 Vicryl was used to reapproximate the subcutaneous tissue, and the skin was closed with 4-0 nylon in a running alternating horizontal mattress fashion the port sites were closed with 4-0 nylon as well. A soft dressing and sling were applied. The patient was transported to the recovery room, awake and in stable condition. Job ID: [id number] DocumentID: [id number] Dictated Date: 04/19/2017 08:46:28 Winemaker Date: 04/19/2017 15:40:56 Dictated By: SUJIT BOONE MD
== END 2017-04-19 11:30 | disposition home or self-care (01) ==
LOC: SDC 06:03
PROVIDERS: ATTEND Orthopaedic Surgery
DX: S46.012A Strain of muscle(s) and tendon(s) of the rotator cuff of left shoulder, initial encounter (principal); S43.432A Superior glenoid labrum lesion of left shoulder, initial encounter; W19.XXXA Unspecified fall, initial encounter; D64.9 Anemia, unspecified; I48.91 Unspecified atrial fibrillation; I10 Essential (primary) hypertension; I25.10 Atherosclerotic heart disease of native coronary artery without angina pectoris; K90.0 Celiac disease; K58.9 Irritable bowel syndrome, unspecified; Z85.038 Personal history of other malignant neoplasm of large intestine; Z86.73 Personal history of transient ischemic attack (TIA), and cerebral infarction without residual deficits; Z79.01 Long term (current) use of anticoagulants; Z79.899 Other long term (current) drug therapy

== ENCOUNTER 2017-05-12 11:38 | Outpatient (RCR) | payer MEDICARE, OTHER | END 2017-05-15 08:00 | disposition home or self-care (01) | PROVIDERS: ATTEND Orthopaedic Surgery | DX: S46.012D Strain of muscle(s) and tendon(s) of the rotator cuff of left shoulder, subsequent encounter (principal); W19.XXXD Unspecified fall, subsequent encounter ==

== ENCOUNTER 2017-06-21 09:04 | Outpatient (CLI) | payer MEDICARE, OTHER ==
[~2017-06-21] VITALS: Ht 147.3 cm; Wt 59.9 kg
== END 2017-06-21 09:49 ==
LOC: PREOP 09:04
PROVIDERS: ATTEND Surgery
DX: Z01.818 Encounter for other preprocedural examination (principal); R19.4 Change in bowel habit; K21.9 Gastro-esophageal reflux disease without esophagitis; Z85.038 Personal history of other malignant neoplasm of large intestine

== ENCOUNTER 2017-06-22 10:45 | Day surgery (SDC) | payer MEDICARE, OTHER ==
[~2017-06-22] VITALS: Ht 147.3 cm; Wt 59.9 kg
[2017-06-22] MEDS ORDERED: NS IV 500 ML 500 ML ONE (10:58)
--- OUTSIDE RECORDS SUMMARY | 2017-06-22 10:59 | XMS REPORT | Continuity of Care Document ---
Author Author [facility] Organization [facility] Address Unknown Phone Unavailable Allergies Active Description Code Type Severity Reaction Onset Reported/Identified Relationship to Patient Clinical Status Yes oxycodone [id number] Drug Allergy Unknown HAS RECEIVED LO 03/03/2016 Yes amiodarone [id number] Drug Allergy Moderate LIGHTHEADED 12/28/2016 Yes diltiazem [id number] Drug Allergy Moderate LIGHTHEADED 12/28/2016 Yes flecainide [id number] Drug Allergy Moderate LIGHTHEADED 12/28/2016 Yes adhesive tape [id number] Drug Allergy Unknown N/A 12/28/2016 Yes diclofenac [id number] Drug Allergy Unknown N/A 12/28/2016 Yes gluten [id number] Drug Allergy Unknown N/A 12/28/2016 Yes tramadol [id number] Drug Allergy Unknown N/A 12/28/2016 Yes acetaminophen [id number] Drug Allergy Unknown N/A 04/10/2017 Yes clopidogrel [id number] Drug Allergy Unknown N/A 04/10/2017 Yes fludrocortisone [id number] Drug Allergy Unknown N/A 04/10/2017 Yes oxycodone [id number] Drug Allergy Unknown N/A 04/10/2017 Yes oxycodone [id number] Drug Allergy Unknown Pt has received 04/19/2017 Medications There is no data. Problems Date Dx Coded Attending Type Code Diagnosis Diagnosed By YESIKA GUPTA MD Ot S46.012D STRAIN OF MUSC/TEND THE ROTATOR CUFF OF YESIKA GUPTA MD Ot W19.XXXD UNSPECIFIED FALL, SUBSEQUENT ENCOUNTER 10/05/2009 Ot 153.9 10/05/2009 Ot 280.9 04/06/2010 [...] FX DISTAL RADIUS NEC-CL 09/04/2011 Ot 959.3 ELB/FOREARM/ WRST INJ NOS 09/04/2011 Ot E000.8 OTHER EXTERNAL [...] 923.10 CONTUSION OF FOREARM 01/16/2012 Ot 959.3 ELB/FOREARM/ WRST INJ NOS 01/16/2012 Ot E000.8 OTHER EXTERNAL CAUSE STATUS 01/16/2012 Ot E849.0 ACCIDENT IN HOME 01/16/2012 Ot E888.9 FALL NOS 01/16/2012 Ot V06.1 DIPHTHERIA- TETANUS-PERTUSSIS, COMBINED [ 01/19/2012 Ot 153.9 MALIGNANT SARA [...] Ot V67.09 SURGERY FOLLOW-UP, OTHER SURGERY 01/07/2013 YESIKA GUPTA MD Ot 266.2 B-COMPLEX DEFIC NEC 01/07/2013 YESIKA GUPTA MD Ot 276.50 VOLUME DEPLETION, UNSPECIFIED 01/07/2013 YESIKA GUPTA MD Ot 285.1 AC POSTHEMORRHAG ANEMIA 01/07/2013 YESIKA GUPTA MD Ot 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, NEC, FOLLOW [...] V45.72 ACQRD ABSENCE INTESTINE - LARGE/SMALL 01/21/2013 ULISES DAVIS MD E Ot 041.49 OTHER AND UNSPECIFIED ESCHERICHIA COLI [ 01/21/2013 ULISES DAVIS MD E Ot 285.9 ANEMIA NOS 01/21/2013 ULISES DAVIS MD E Ot 427.31 ATRIAL FIBRILLATION 01/21/2013 ULISES DAVIS MD E Ot 564.1 IRRITABLE BOWEL SYNDROME 01/21/2013 ULISES DAVIS MD E Ot 579.0 CELIAC DISEASE 01/21/2013 ULISES DAVIS MD E Ot 599.0 URIN TRACT INFECTION NOS 01/21/2013 ULISES DAVIS MD E Ot 788.20 RETENTION OF URINE NOS 01/21/2013 SUSAN HAWKINS, ULISES Law Ot V43.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 JOINT REPLACEMENT STATUS 01/21/2013 SUSAN HAWKINS, ULISES Law Ot V54.81 AFTERCARE FOLLOWING JOINT REPLACEMENT 01/21/2013 SUSAN HAWKINS, ULISES Law Ot V57.89 REHABILITATION PROC NEC 03/07/2013 [address]IA HAWKINS, AVE Ot 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 03/07/2013 AVE EM MD Ot V58.81 FIT/ADJ VASCULAR CATHETER 03/14/2013 YESIKA GUPTA MD Ot V43.65 KNEE JOINT REPLACEMENT STATUS 03/14/2013 YESIKA GUPTA MD Ot V54.81 AFTERCARE FOLLOWING JOINT REPLACEMENT 03/14/2013 YESIKA GUPTA MD Ot V57.1 PHYSICAL THERAPY NEC 06/17/2013 AVE EM MD Ot 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 06/17/2013 AVE EM MD Ot V58.81 FIT/ADJ VASCULAR CATHETER 09/10/2013 TONY TURNER DO Ot V58.81 FIT/ADJ VASCULAR CATHETER 12/30/2013 TONY TURNER DO Ot V58.81 FIT/ADJ VASCULAR CATHETER 03/03/2014 CATHLEEN HAWKINS, SUZIE Noyola Ot 531.90 STOMACH ULCER NOS 03/03/2014 CATHLEEN HAWKINS, SUZIE Noyola Ot 532.90 DUODENAL ULCER NOS 05/12/2014 TONY TURNER DO Ot V58.81 FIT/ADJ VASCULAR CATHETER 06/18/2014 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 EXTRACTOR FILLER Ot V58.81 06/18/2014 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 EXTRACTOR FILLER Ot V58.81 06/18/2014 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 EXTRACTOR FILLER Ot V58.81 08/05/2014 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 EXTRACTOR FILLER Ot V58.81 08/07/2014 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 EXTRACTOR FILLER Ot V58.81 09/05/2014 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 EXTRACTOR FILLER Ot V58.81 09/15/2014 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 EXTRACTOR FILLER Ot V58.81 FIT/ADJ VASCULAR CATHETER 10/14/2014 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 EXTRACTOR FILLER Ot V58.81 10/14/2014 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 EXTRACTOR FILLER Ot V58.81 10/14/2014 JOHNNYARNULFO EXTRACTOR FILLER Ot V58.81 10/14/2014 JOHNNYARNULFO EXTRACTOR FILLER Ot V58.81 10/15/2014 JOHNNYARNULFO EXTRACTOR FILLER Ot V58.81 10/31/2014 JOHNNYARNULFO EXTRACTOR FILLER Ot V58.81 11/12/2014 JOHNNYARNULFO EXTRACTOR FILLER Ot V58.81 12/17/2014 JOHNNYARNULFO EXTRACTOR FILLER Ot V58.81 12/31/2014 JOHNNYARNULFO EXTRACTOR FILLER Ot V58.81 01/12/2015 JOHNNYARNULFO EXTRACTOR FILLER Ot V58.81 FIT/ADJ VASCULAR CATHETER 01/29/2015 Ot [...] Ot V72.84 01/29/2015 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 Ot V58.81 01/29/2015 Ot 259.9 01/29/2015 Ot [...] SUZIE Noyola Ot V72.84 01/29/2015 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 EXTRACTOR FILLER Ot V58.81 02/20/2015 TONY TURNER DO Ot 733.90 02/27/2015 TONY TURNER DO Ot 611.72 03/02/2015 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 EXTRACTOR FILLER Ot V58.81 03/03/2015 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 EXTRACTOR FILLER Ot V58.81 03/03/2015 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 EXTRACTOR FILLER Ot V58.81 03/03/2015 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 EXTRACTOR FILLER Ot V58.81 03/03/2015 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 EXTRACTOR FILLER Ot V58.81 03/06/2015 TONY TURNER DO Ot 733.90 03/06/2015 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 EXTRACTOR FILLER Ot V58.81 03/06/2015 Ot 153.9 03/06/2015 Ot [...] 03/06/2015 Ot V58.81 03/06/2015 ALONSO HAWKINS, YESIKA P Ot 715.96 03/06/2015 ALONSO HAWKINS, YESIKA P Ot 780.79 03/06/2015 ALONSO HAWKINS, YESIKA P Ot V72.63 03/06/2015 ALONSO HAWKINS, YESIKA P Ot V72.81 03/06/2015 ALONSO HAWKINS, YESIKA P Ot V72.83 03/06/2015 ALONSO HAWKINS, YESIKA P Ot V74.8 03/06/2015 Ot 153.9 03/06/2015 Ot V58.81 03/06/2015 CATHLEEN HAWKINS, SUZIE [place] Ot V72.84 03/06/2015 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 EXTRACTOR FILLER Ot V58.81 03/06/2015 TONY TURNER DO Ot 733.90 03/06/2015 TONY TURNER DO Ot 611.72 03/13/2015 TONY TURNER DO Ot 611.72 03/31/2015 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 EXTRACTOR FILLER Ot V58.81 04/06/2015 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 EXTRACTOR FILLER Ot V58.81 04/08/2015 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 EXTRACTOR FILLER Ot V58.81 FIT/ADJ VASCULAR CATHETER 05/04/2015 Ot [...] 05/04/2015 Ot 153.9 05/04/2015 Ot V58.81 05/04/2015 ALONSO HAWKINS, YESIKA [place] Ot 715.96 05/04/2015 ALONSO HAWKINS, YESIKA [place] Ot 780.79 05/04/2015 ALONSO HAWKINS, YESIKA [place] Ot V72.63 05/04/2015 ALONSO HAWKINS, YESIKA [place] Ot V72.81 05/04/2015 ALONSO HAWKINS, YESIKA [place] Ot V72.83 05/04/2015 ALONSO HAWKINS, YESIKA [place] Ot V74.8 05/04/2015 Ot 153.9 05/04/2015 Ot V58.81 05/04/2015 CATHLEEN HAWKINS, SUZIE [place] Ot V72.84 05/04/2015 TONY TURNER DO Ot 733.90 05/04/2015 TONY TURNER DO Ot 611.72 05/04/2015 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 EXTRACTOR FILLER Ot V58.81 05/04/2015 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 EXTRACTOR FILLER Ot V58.81 05/05/2015 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 EXTRACTOR FILLER Ot V58.81 06/01/2015 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 EXTRACTOR FILLER Ot Z45.2 06/25/2015 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 EXTRACTOR FILLER Ot Z45.2 07/28/2015 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 EXTRACTOR FILLER Ot Z45.2 08/02/2015 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 EXTRACTOR FILLER Ot Z45.2 ENCOUNTER FOR ADJUSTMENT AND MANAGEMENT 08/19/2015 MASON BELLO MD Ot K63.5 POLYP OF COLON 08/19/2015 MASON BELLO MD Ot K64.0 FIRST DEGREE HEMORRHOIDS 08/19/2015 MASON BELLO MD Ot Z85.038 PERSONAL HISTORY OF MALIGNANT NEOPLASM O 09/12/2015 BRIANNA HAWKINS, KUMAR A Ot I10 ESSENTIAL (PRIMARY) HYPERTENSION 09/12/2015 BRIANNA HAWKINS, KUMAR A Ot I48.91 UNSPECIFIED ATRIAL FIBRILLATION 09/12/2015 BRIANNA HAWKINS, KUMAR A Ot Z79.02 BEATER ENGINEER HELPER (CURRENT) USE OF ANTITHROMBOTI 09/17/2015 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 EXTRACTOR FILLER Ot Z45.2 09/18/2015 Ot 153.9 09/18/2015 Ot [...] [place] Ot 715.96 09/18/2015 ALONSO HAWKINS, YESIKA [place] Ot 780.79 09/18/2015 ALONSO HAWKINS, YESIKA [place] Ot V72.63 09/18/2015 ALONSO HAWKINS, YESIKA [place] Ot V72.81 09/18/2015 ALONSO HAWKINS, YESIKA [place] Ot V72.83 09/18/2015 ALONSO HAWKINS, YESIKA [place] Ot V74.8 09/18/2015 Ot 153.9 09/18/2015 Ot V58.81 09/18/2015 CATHLEEN HAWKINS, SUZIE [place] Ot V72.84 09/18/2015 TONY TURNER DO Ot 733.90 09/18/2015 TONY TURNER DO Ot 611.72 09/18/2015 TONY TURNER DO Ot M41.9 09/18/2015 TONY TURNER DO Ot M54.2 09/18/2015 JANET TURNERIA L EXTRACTOR FILLER Ot Z45.2 09/18/2015 EUGENIA HAWKINS, MASON Ot Z01.818 09/18/2015 EUGENIA HAWKINS, MASON Ot Z85.038 09/18/2015 JOHNNYARNULFO EXTRACTOR FILLER Ot Z45.2 09/18/2015 Ot 153.9 09/18/2015 Ot V58.81 09/18/2015 JOHNNY KEITA TONY Bhat Ot M41.9 09/18/2015 JOHNNY KEITA TONY Bhat Ot M54.2 09/18/2015 JOHNNYARNULFO EXTRACTOR FILLER Ot Z45.2 09/18/2015 JOHNNY KEITA TONY Bhat Ot M41.9 09/18/2015 JOHNNY KEITA TONY Bhat Ot M54.2 09/18/2015 JOHNNYARNULFO EXTRACTOR FILLER Ot Z45.2 09/21/2015 JOHNNY KEITA TONY Home Ot I48.91 10/02/2015 Ot 153.9 10/02/2015 Ot [...] 10/02/2015 Ot V58.81 10/02/2015 CATHLEEN HAWKINS, SUZIE Jazmín Ot V72.84 10/02/2015 TONY TURNER DO Ot 733.90 10/02/2015 TONY TURNER DO Ot 611.72 10/02/2015 TONY TURNER DO Ot M41.9 10/02/2015 TONY TURNER DO Ot M54.2 10/02/2015 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 Ot Z45.2 10/02/2015 EUGENIA HAWKINS, MASON Ot Z01.818 10/02/2015 MASON BELLO MD Ot Z85.038 10/02/2015 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 Ot Z45.2 10/02/2015 TONY TURNER DO Ot I48.2 10/02/2015 TONY TURNER DO Ot I48.91 10/02/2015 ARIANE MUNROE MD Ot I48.91 UNSPECIFIED ATRIAL FIBRILLATION 10/02/2015 ARIANE MUNROE MD Ot 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 10/02/2015 ARIANE MUNROE MD Ot Z79.4 BEATER ENGINEER HELPER (CURRENT) USE OF INSULIN 10/05/2015 ARIANE MUNROE MD, Ot I48.91 10/05/2015 ARIANE MUNROE MD, Ot Z79.01 10/05/2015 ARIANE MUNROE MD Ot Z79.4 10/13/2015 TONY TURNER DO Ot I48.2 10/14/2015 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 Ot Z45.2 10/15/2015 TONY TURNER DO Ot I48.91 10/15/2015 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P Ot Z45.2 10/25/2015 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 Ot Z45.2 ENCOUNTER FOR ADJUSTMENT AND MANAGEMENT 10/26/2015 TONY TURNER DO Ot I48.2 CHRONIC ATRIAL FIBRILLATION 10/27/2015 TONY TURNER DO Ot I48.91 UNSPECIFIED ATRIAL FIBRILLATION 11/04/2015 TONY TURNER DO Ot M41.9 SCOLIOSIS, UNSPECIFIED 11/04/2015 TONY TURNER DO, Ot M54.5 LOW BACK PAIN 11/10/2015 HONORIO ABBOTT APRN Ot I48.91 UNSPECIFIED ATRIAL FIBRILLATION 11/10/2015 HONORIO ABBOTT APRN Ot S61.212A LACERATION W/O FB OF R MID FINGER W/O DA 11/10/2015 HONORIO ABBOTT APRN Ot S61.216A LAC W/O FB OF R LITTLE FINGER W/O DAMAGE 11/10/2015 HONORIO ABBOTT APRN Ot W45.8XXA OTH FOREIGN BODY OR OBJECT ENTERING THRO 11/10/2015 HONORIO ABBOTT APRN Ot Y92.[address] IN [facility] NON-INSTITUT (PRIVATE 11/10/2015 HONORIO ABBOTT APRN Ot Y99.8 OTHER EXTERNAL CAUSE STATUS 11/10/2015 HONORIO ABBOTT APRN Ot Z23 ENCOUNTER FOR IMMUNIZATION 11/10/2015 HONORIO ABBOTT APRN Ot 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 11/11/2015 TONY TURNER DO Ot E87.1 HYPO-OSMOLALITY AND HYPONATREMIA 11/12/2015 TONY TURNER DO Ot E87.1 HYPO-OSMOLALITY AND HYPONATREMIA 11/23/2015 TONY RANDALL MD Ot I48.0 PAROXYSMAL ATRIAL FIBRILLATION 11/23/2015 TONY RANDALL MD Ot I48.0 PAROXYSMAL ATRIAL FIBRILLATION 11/25/2015 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 Ot Z45.2 ENCOUNTER FOR ADJUSTMENT AND MANAGEMENT 11/25/2015 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 Ot Z45.2 ENCOUNTER FOR ADJUSTMENT AND MANAGEMENT 11/26/2015 TONY RANDALL MD Ot I48.0 PAROXYSMAL ATRIAL FIBRILLATION 11/29/2015 TONY TURNER DO, Ot M41.9 SCOLIOSIS, UNSPECIFIED 11/29/2015 TONY TURNER DO, Ot M54.5 LOW BACK PAIN 11/30/2015 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 Ot Z45.2 ENCOUNTER FOR ADJUSTMENT AND MANAGEMENT 12/01/2015 TONY TURNER DO Ot E87.1 HYPO-OSMOLALITY AND HYPONATREMIA 12/15/2015 TONY RANDALL MD Ot I48.0 PAROXYSMAL ATRIAL FIBRILLATION 12/16/2015 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 EXTRACTOR FILLER Ot Z45.2 ENCOUNTER FOR ADJUSTMENT AND MANAGEMENT 12/29/2015 TONY RANDALL MD Ot I48.0 PAROXYSMAL ATRIAL FIBRILLATION 01/06/2016 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 EXTRACTOR FILLER Ot Z45.2 ENCOUNTER FOR ADJUSTMENT AND MANAGEMENT 01/06/2016 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 EXTRACTOR FILLER Ot Z45.2 ENCOUNTER FOR ADJUSTMENT AND MANAGEMENT 02/19/2016 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 EXTRACTOR FILLER Ot Z45.2 ENCOUNTER FOR ADJUSTMENT AND MANAGEMENT 03/02/2016 Ot 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 03/02/2016 Ot V58.81 FIT/ADJ VASCULAR CATHETER 03/02/2016 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 EXTRACTOR FILLER Ot Z45.2 ENCOUNTER FOR ADJUSTMENT AND MANAGEMENT 03/02/2016 MASON BELLO MD, Ot K40.90 UNIL INGUINAL HERNIA, W/O OBST OR GANGR, 03/02/2016 MASON BELLO MD Ot Z01.818 ENCOUNTER FOR OTHER PREPROCEDURAL EXAMIN 03/03/2016 Ot 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 03/03/2016 Ot V58.81 FIT/ADJ VASCULAR CATHETER 03/03/2016 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 EXTRACTOR FILLER Ot Z45.2 ENCOUNTER FOR ADJUSTMENT AND MANAGEMENT 03/03/2016 MASON BELLO MD, Ot I48.91 UNSPECIFIED ATRIAL FIBRILLATION 03/03/2016 MASON BELLO MD, Ot K40.90 UNIL INGUINAL HERNIA, W/O OBST OR GANGR, 03/03/2016 MASON BELLO MD Ot Z79.02 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 ENGINEER 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 (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) USE OF ANTITHROMBOTI 03/03/2016 MASON BELLO MD Ot Z85.038 PERSONAL HISTORY OF MALIGNANT NEOPLASM O 03/04/2016 MASON BELLO MD, Ot K40.90 UNIL INGUINAL HERNIA, W/O OBST OR GANGR, 03/04/2016 MASON BELLO MD Ot Z01.818 ENCOUNTER FOR OTHER PREPROCEDURAL EXAMIN 03/07/2016 MASON BELLO MD Ot I48.91 UNSPECIFIED ATRIAL FIBRILLATION 03/07/2016 MASON BELLO MD, Ot K40.90 UNIL INGUINAL HERNIA, W/O OBST OR GANGR, 03/07/2016 EUGENIA HAWKINS, MASON Ot Z79.02 BEATER ENGINEER HELPER (CURRENT) USE OF ANTITHROMBOTI 03/07/2016 EUGENIA HAWKINS, MASON Ot Z85.038 PERSONAL HISTORY OF MALIGNANT NEOPLASM [...] CLINICAL FINDING NEC 03/09/2016 Ot V72.84 EXAM PRE- OPERATIVE NOS 03/09/2016 Ot 786.09 RESPIRATORY ABNORM NEC 03/09/2016 Ot 259.9 ENDOCRINE DISORDER NOS 03/09/2016 Ot 268.9 VITAMIN D DEFICIENCY NOS 03/09/2016 Ot V77.91 SCREEN LIPOID DISORDERS 03/09/2016 Ot 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 03/09/2016 Ot V58.81 FIT/ADJ VASCULAR CATHETER 03/09/2016 ALONSO HAWKINS, YESIKA [place] Ot 715.96 OSTEOARTHROS NOS-L/LEG 03/09/2016 ALONSO HAWKINS, YESIKA [place] Ot 780.79 OTH MALAISE FATIGUE 03/09/2016 ALNOSO HAWKINS, YESIKA [place] Ot V72.63 PRE-PROCEDURAL LABORATORY EXAMINATION 03/09/2016 ALONSO HAWKINS, YESIKA [place] Ot V72.81 YAXP-RHL-QSEMOLFNY CARDIOVASCULAR 03/09/2016 ALONSO HAWKINS, YESIKA [place] Ot V72.83 EXAM PRE-OPERATIVE NEC 03/09/2016 ALONSO HAWKINS, YESIKA [place] Ot V74.8 SCREEN-BACTERIAL DIS NEC 03/09/2016 Ot 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 03/09/2016 Ot V58.81 FIT/ADJ VASCULAR CATHETER 03/09/2016 CATHLEEN HAWKINS, SUZIE Noyola Ot V72.84 EXAM PRE-OPERATIVE NOS 03/09/2016 TONY TURNER DO Ot 733.90 BONE CARTILAGE DIS NOS 03/09/2016 TONY TURNER DO Ot 611.72 LUMP OR MASS IN BREAST 03/09/2016 MASON BELLO MD Ot Z01.818 ENCOUNTER FOR OTHER PREPROCEDURAL EXAMIN 03/09/2016 MASON BELLO MD Ot Z85.038 PERSONAL HISTORY OF MALIGNANT NEOPLASM O 03/09/2016 TONY TURNER DO Ot I48.2 CHRONIC ATRIAL FIBRILLATION 03/09/2016 TONY TURNER DO Ot I48.91 UNSPECIFIED ATRIAL FIBRILLATION 03/09/2016 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P Ot Z45.2 ENCOUNTER FOR ADJUSTMENT AND MANAGEMENT 03/09/2016 TONY TURNER DO Ot E87.1 HYPO-OSMOLALITY AND HYPONATREMIA 03/09/2016 TONY RANDALL MD Ot I48.0 PAROXYSMAL ATRIAL FIBRILLATION 03/09/2016 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P Ot Z45.2 ENCOUNTER FOR ADJUSTMENT AND MANAGEMENT 03/10/2016 TONY TURNER DO Ot R55 SYNCOPE AND COLLAPSE 03/23/2016 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P Ot Z45.2 ENCOUNTER FOR ADJUSTMENT AND MANAGEMENT 03/31/2016 TONY TURNER DO Ot R55 SYNCOPE AND COLLAPSE 04/05/2016 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P Ot Z45.2 ENCOUNTER FOR ADJUSTMENT AND MANAGEMENT 04/06/2016 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P Ot Z45.2 ENCOUNTER FOR ADJUSTMENT AND MANAGEMENT 04/11/2016 TONY TURNER DO Ot R55 SYNCOPE AND COLLAPSE 04/11/2016 TONY TURNER DO Ot R55 SYNCOPE AND COLLAPSE 04/25/2016 TONY TURNER DO Ot R55 SYNCOPE AND COLLAPSE 04/28/2016 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 EXTRACTOR FILLER Ot Z45.2 ENCOUNTER FOR ADJUSTMENT AND MANAGEMENT 04/28/2016 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 EXTRACTOR FILLER Ot Z45.2 ENCOUNTER FOR ADJUSTMENT AND MANAGEMENT 05/16/2016 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 EXTRACTOR FILLER Ot Z45.2 ENCOUNTER FOR ADJUSTMENT AND MANAGEMENT 05/26/2016 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 EXTRACTOR FILLER Ot Z45.2 ENCOUNTER FOR ADJUSTMENT AND MANAGEMENT 06/01/2016 JOHNNY ARNULFO Raymond EXTRACTOR FILLER Ot Z45.2 ENCOUNTER FOR ADJUSTMENT AND MANAGEMENT 06/07/2016 TONY TURNER DO Ot R55 SYNCOPE AND COLLAPSE 06/17/2016 JOHNNY ARNULFO Raymond EXTRACTOR FILLER Ot Z45.2 ENCOUNTER FOR ADJUSTMENT AND MANAGEMENT 07/19/2016 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 EXTRACTOR FILLER Ot Z45.2 ENCOUNTER FOR ADJUSTMENT AND MANAGEMENT 07/19/2016 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 EXTRACTOR FILLER Ot Z45.2 ENCOUNTER FOR ADJUSTMENT AND MANAGEMENT 07/20/2016 OJHNNY ARNULFO L EXTRACTOR FILLER Ot Z45.2 ENCOUNTER FOR ADJUSTMENT AND MANAGEMENT 07/27/2016 JOHNNY ARNULFO L EXTRACTOR FILLER Ot Z45.2 ENCOUNTER FOR ADJUSTMENT AND MANAGEMENT 08/17/2016 Ot 780.4 DIZZINESS AND GIDDINESS 08/17/2016 Ot 784.0 HEADACHE 08/17/2016 Ot 786.09 RESPIRATORY ABNORM NEC 08/17/2016 Ot 786.09 RESPIRATORY ABNORM NEC 08/17/2016 Ot 786.09 RESPIRATORY ABNORM NEC 08/17/2016 Ot 796.4 ABN CLINICAL FINDING NEC 08/17/2016 Ot V72.84 EXAM PRE- OPERATIVE NOS 08/17/2016 Ot 786.09 RESPIRATORY ABNORM NEC 08/17/2016 Ot 259.9 ENDOCRINE DISORDER NOS 08/17/2016 Ot 268.9 VITAMIN D DEFICIENCY NOS 08/17/2016 Ot V77.91 SCREEN LIPOID DISORDERS 08/17/2016 Ot 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 08/17/2016 Ot V58.81 FIT/ADJ VASCULAR CATHETER 08/17/2016 ALONSO HAWKINS, YESIKA [place] Ot 715.96 OSTEOARTHROS NOS-L/LEG 08/17/2016 ALONSO HAWKINS, YESIKA [place] Ot 780.79 OTH MALAISE FATIGUE 08/17/2016 ALONSO HAWKINS, YESIKA [place] Ot V72.63 PRE-PROCEDURAL LABORATORY EXAMINATION 08/17/2016 YESIKA GUPTA MD Ot V72.81 NYDD-[id number]-YQCJINLGH CARDIOVASCULAR 08/17/2016 YESIKA GUPTA MD Ot V72.83 [...] Ot I48.91 UNSPECIFIED ATRIAL FIBRILLATION 08/17/2016 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P Ot Z45.2 ENCOUNTER FOR ADJUSTMENT AND MANAGEMENT 08/17/2016 TONY TURNER DO Ot E87.1 HYPO-OSMOLALITY AND HYPONATREMIA 08/17/2016 TONY RANDALL MD Ot I48.0 PAROXYSMAL ATRIAL FIBRILLATION 08/17/2016 TONY TURNER DO Ot R55 SYNCOPE AND COLLAPSE 08/17/2016 TONY TURNER DO Ot R55 SYNCOPE AND COLLAPSE 08/17/2016 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 EXTRACTOR FILLER Ot Z45.2 ENCOUNTER FOR ADJUSTMENT AND MANAGEMENT 08/17/2016 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 EXTRACTOR FILLER Ot Z45.2 ENCOUNTER FOR ADJUSTMENT AND MANAGEMENT 09/12/2016 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 EXTRACTOR FILLER Ot Z45.2 ENCOUNTER FOR ADJUSTMENT AND MANAGEMENT 09/29/2016 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 EXTRACTOR FILLER Ot Z45.2 ENCOUNTER FOR ADJUSTMENT AND MANAGEMENT 10/06/2016 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 EXTRACTOR FILLER Ot Z45.2 ENCOUNTER FOR ADJUSTMENT AND MANAGEMENT 10/21/2016 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 EXTRACTOR FILLER Ot Z45.2 ENCOUNTER FOR ADJUSTMENT AND MANAGEMENT 11/03/2016 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 EXTRACTOR FILLER Ot Z45.2 ENCOUNTER FOR ADJUSTMENT AND MANAGEMENT 11/15/2016 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 EXTRACTOR FILLER Ot Z45.2 ENCOUNTER FOR ADJUSTMENT AND MANAGEMENT 12/07/2016 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 EXTRACTOR FILLER Ot Z45.2 ENCOUNTER FOR ADJUSTMENT AND MANAGEMENT 12/07/2016 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 Ot Z45.2 ENCOUNTER FOR ADJUSTMENT AND MANAGEMENT 12/09/2016 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 Ot Z45.2 ENCOUNTER FOR ADJUSTMENT AND MANAGEMENT 12/13/2016 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 Ot Z45.2 ENCOUNTER FOR ADJUSTMENT AND MANAGEMENT 12/28/2016 Ot 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 12/28/2016 Ot V58.81 FIT/ADJ VASCULAR CATHETER 12/28/2016 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 Ot Z45.2 ENCOUNTER FOR ADJUSTMENT AND MANAGEMENT 12/28/2016 TONY TURNER DO Ot R55 SYNCOPE AND COLLAPSE 12/28/2016 MASON BELLO MD, Ot 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 12/28/2016 MASON BELLO MD, Ot Z01.818 ENCOUNTER FOR OTHER PREPROCEDURAL EXAMIN 01/03/2017 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 Ot Z45.2 ENCOUNTER FOR ADJUSTMENT AND MANAGEMENT 01/05/2017 MASON BELLO MD, Ot D50.9 IRON DEFICIENCY ANEMIA, UNSPECIFIED 01/05/2017 MASON BELLO MD, Ot E53.8 DEFICIENCY OF OTHER SPECIFIED B GROUP 01/05/2017 MASON BELLO MD, Ot I48.91 UNSPECIFIED ATRIAL FIBRILLATION 01/05/2017 MASON BELLO MD, Ot I73.9 PERIPHERAL VASCULAR DISEASE, UNSPECIFIED 01/05/2017 MASON BELLO MD, Ot 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 01/05/2017 MASON BELLO MD, Ot K90.0 CELIAC DISEASE 01/05/2017 MASON BELLO MD, Ot M81.0 AGE-RELATED OSTEOPOROSIS W/O CURRENT PAT 01/05/2017 MASON BELLO MD, Ot 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 01/05/2017 MASON BELLO MD, Ot Z79.899 OTHER ASSISTED (CURRENT) DRUG THERAPY 01/05/2017 MASON BELLO MD, Ot Z85.038 PERSONAL HISTORY OF MALIGNANT NEOPLASM O 01/05/2017 MASON BELLO MD, Ot Z86.73 PRSNL HX OF TIA (TIA), AND CEREB INFRC W 01/23/2017 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 Ot Z45.2 ENCOUNTER FOR ADJUSTMENT AND MANAGEMENT 03/06/2017 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 Ot Z45.2 ENCOUNTER FOR ADJUSTMENT AND MANAGEMENT 03/07/2017 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 Ot Z45.2 ENCOUNTER FOR ADJUSTMENT AND MANAGEMENT 03/15/2017 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 Ot Z45.2 ENCOUNTER FOR ADJUSTMENT AND MANAGEMENT 03/31/2017 TONY TURNER DO, Ot M19.012 PRIMARY OSTEOARTHRITIS, LEFT SHOULDER 03/31/2017 TONY TURNER DO, Ot M75.122 COMPLETE ROTATR-CUFF TEAR/RUPTR OF LEFT 03/31/2017 TONY TURNER DO, Ot S43.402A UNSPECIFIED SPRAIN OF LEFT SHOULDER JOIN 03/31/2017 TONY TURNER DO, Ot X58.XXXA EXPOSURE TO OTHER SPECIFIED FACTORS, INI 03/31/2017 TONY TURNER DO, Ot Y99.8 OTHER EXTERNAL CAUSE STATUS 04/10/2017 YESIKA GUPTA MD Ot M75.102 UNSP ROTATR-CUFF TEAR/RUPTR OF LEFT SHOU 04/10/2017 YESIKA GUPTA MD, Ot Z01.818 ENCOUNTER FOR OTHER PREPROCEDURAL EXAMIN 04/10/2017 Ot 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 04/10/2017 Ot V58.81 FIT/ADJ VASCULAR CATHETER 04/10/2017 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 Ot Z45.2 ENCOUNTER FOR ADJUSTMENT AND MANAGEMENT 04/10/2017 TONY TURNER DO Ot R55 SYNCOPE AND COLLAPSE 04/10/2017 ARNULFO TURNER Ot Z45.2 ENCOUNTER FOR ADJUSTMENT AND MANAGEMENT 04/14/2017 TONY TURNER DO, Ot M75.102 UNSP ROTATR-CUFF TEAR/RUPTR OF LEFT SHOU 04/19/2017 Ot 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 04/19/2017 Ot V58.81 FIT/ADJ VASCULAR CATHETER 04/19/2017 ARNULFO TURNER Ot Z45.2 ENCOUNTER FOR ADJUSTMENT AND MANAGEMENT 04/19/2017 TONY TURNER DO, Ot R55 SYNCOPE AND COLLAPSE 04/19/2017 ARNULFO TURNER Ot Z45.2 ENCOUNTER FOR ADJUSTMENT AND MANAGEMENT 04/19/2017 YESIKA GUPTA MD Ot D64.9 ANEMIA, UNSPECIFIED 04/19/2017 YESIKA GUPTA MD Ot I10 ESSENTIAL (PRIMARY) HYPERTENSION 04/19/2017 YESIKA GUPTA MD, Ot I25.10 ATHSCL HEART DISEASE OF [place] CORONARY 04/19/2017 YESIKA GUPTA MD Ot I48.91 UNSPECIFIED ATRIAL FIBRILLATION 04/19/2017 YESIKA GUPTA MD Ot K58.9 IRRITABLE BOWEL SYNDROME WITHOUT DIARRHE 04/19/2017 YESIKA GUPTA MD Ot K90.0 CELIAC DISEASE 04/19/2017 YESIKA GUPTA MD Ot S43.432A SUPERIOR GLENOID LABRUM LESION OF LEFT S 04/19/2017 YESIKA GUPTA MD Ot S46.012A STRAIN OF MUSC/TEND THE ROTATOR CUFF OF 04/19/2017 YESIKA GUPTA MD Ot W19.XXXA UNSPECIFIED FALL, INITIAL ENCOUNTER 04/19/2017 YESIKA GUPTA MD, Ot Z79.01 ASSISTED (CURRENT) USE OF ANTICOAGULANT 04/19/2017 YESIKA GUPTA MD Ot Z79.899 OTHER ASSISTED (CURRENT) DRUG THERAPY 04/19/2017 YESIKA GUPTA MD, Ot Z85.038 PERSONAL HISTORY OF MALIGNANT NEOPLASM O 04/19/2017 YESIKA GUPTA MD, Ot Z86.73 PRSNL HX OF TIA (TIA), AND CEREB INFRC W 04/21/2017 YESIKA GUPTA MD, Ot D64.9 ANEMIA, UNSPECIFIED 04/21/2017 YESIKA GUPTA MD Ot I10 ESSENTIAL (PRIMARY) HYPERTENSION 04/21/2017 YESIKA GUPTA MD, Ot I25.10 ATHSCL HEART DISEASE OF [place] CORONARY 04/21/2017 YESIKA GUPTA MD Ot I48.91 UNSPECIFIED ATRIAL FIBRILLATION 04/21/2017 YESIKA GUPTA MD Ot K58.9 IRRITABLE BOWEL SYNDROME WITHOUT DIARRHE 04/21/2017 YESIKA GUPTA MD Ot K90.0 CELIAC DISEASE 04/21/2017 YESIKA GUPTA MD Ot S43.432A SUPERIOR GLENOID LABRUM LESION OF LEFT S 04/21/2017 YESIKA GUPTA MD Ot S46.012A STRAIN OF MUSC/TEND THE ROTATOR CUFF OF 04/21/2017 YESIKA GUPTA MD Ot W19.XXXA UNSPECIFIED FALL, INITIAL ENCOUNTER 04/21/2017 YESIKA GUPTA MD, Ot Z79.01 ASSISTED (CURRENT) USE OF ANTICOAGULANT 04/21/2017 YESIKA GUPTA MD, Ot 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 04/21/2017 YESIKA GUPTA MD, Ot Z85.038 PERSONAL HISTORY OF MALIGNANT NEOPLASM O 04/21/2017 YESIKA GUPTA MD, Ot Z86.73 PRSNL HX OF TIA (TIA), AND CEREB INFRC W 04/26/2017 YESIKA GUPTA MD, Ot S46.012D STRAIN OF MUSC/TEND THE ROTATOR CUFF OF 04/26/2017 YESIKA GUPTA MD, Ot W19.XXXD UNSPECIFIED FALL, SUBSEQUENT ENCOUNTER 04/27/2017 YESIKA GUPTA MD, Ot D64.9 ANEMIA, UNSPECIFIED 04/27/2017 YESIKA GUPTA MD, Ot I10 ESSENTIAL (PRIMARY) HYPERTENSION 04/27/2017 YESIKA GUPTA MD, Ot I25.10 ATHSCL HEART DISEASE OF [place] CORONARY 04/27/2017 YESIKA GUPTA MD, Ot I48.91 UNSPECIFIED ATRIAL FIBRILLATION 04/27/2017 YESIKA GUPTA MD, Ot K58.9 IRRITABLE BOWEL SYNDROME WITHOUT DIARRHE 04/27/2017 YESIKA GUTPA MD, Ot K90.0 CELIAC DISEASE 04/27/2017 YESIKA GUPTA MD, Ot S43.432A SUPERIOR GLENOID LABRUM LESION OF LEFT S 04/27/2017 YESIKA GUPTA MD, Ot S46.012A STRAIN OF MUSC/TEND THE ROTATOR CUFF OF 04/27/2017 YESIKA GUPTA MD, Ot W19.XXXA UNSPECIFIED FALL, INITIAL ENCOUNTER 04/27/2017 YESIKA GUPTA MD, Ot 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, YUE Schultz Ot S76.912A STRAIN OF UNSP MUSC/FASC/TEND AT THI LEV 05/14/2017 DIP[place] , YUE Schultz Ot S86.912A STRAIN OF UNSP MUSC/TEND AT LOWER LEG LE 05/14/2017 DIPAK YUE Ot Z86.73 PRSNL HX OF TIA (TIA), AND CEREB INFRC W 05/14/[address] [facility] Z87.59 PERSONAL HISTORY OF COMP OF PREG, CHLDBR 05/14/[address] [facility] Z90.49 ACQUIRED ABSENCE OF OTHER SPECIFIED PART 05/14/[address] [facility] Ot Z96.651 PRESENCE OF RIGHT ARTIFICIAL KNEE JOINT 05/14/[address] [facility] Ot Z96.652 PRESENCE OF LEFT ARTIFICIAL KNEE JOINT 05/15/2017 YESIKA GUPTA MD Ot S46.012D STRAIN OF MUSC/TEND THE ROTATOR CUFF OF 05/15/2017 YESIKA GUPTA MD Ot W19.XXXD UNSPECIFIED FALL, SUBSEQUENT ENCOUNTER 05/19/2017 DIP[place] , YUE Schultz Ot D64.9 ANEMIA, UNSPECIFIED 05/19/[address] [facility] Ot M25.562 PAIN IN LEFT KNEE 05/19/[address] [facility] Ot S76.912A STRAIN OF UNSP MUSC/FASC/TEND AT THI LEV 05/19/[address] [facility], YUE Schultz Ot S86.912A STRAIN OF UNSP MUSC/TEND AT LOWER LEG LE 05/19/[address] [facility] Z86.73 PRSNL HX OF TIA (TIA), AND CEREB INFRC W 05/19/2017 [place] YUE Ot Z87.59 PERSONAL HISTORY OF COMP OF PREG, CHLDBR 05/19/2017 [place] YUE Ot Z90.49 ACQUIRED ABSENCE OF OTHER SPECIFIED PART 05/19/[address] [facility] Ot Z96.651 PRESENCE OF RIGHT ARTIFICIAL KNEE JOINT 05/19/2017 DIPAK DOYUE Ot Z96.652 PRESENCE OF LEFT ARTIFICIAL KNEE JOINT 05/19/2017 TONY TURNER DO Ot M19.012 PRIMARY OSTEOARTHRITIS, LEFT SHOULDER 05/19/2017 TONY TURNER DO Ot M75.122 COMPLETE ROTATR-CUFF TEAR/RUPTR OF LEFT 05/19/2017 TONY TURNER DO Ot S43.402A UNSPECIFIED SPRAIN OF LEFT SHOULDER JOIN 05/19/2017 JOHNNY KEITA TONY Home Ot X58.XXXA EXPOSURE TO OTHER SPECIFIED FACTORS, INI 05/19/2017 TONY TURNER DO Ot Y99.8 OTHER EXTERNAL CAUSE STATUS 05/25/2017 JOHNNY KEITA TONY Home Ot M75.102 UNSP ROTATR-CUFF TEAR/RUPTR OF LEFT SHOU 05/25/2017 Ot 786.09 RESPIRATORY ABNORM NEC 05/25/2017 Ot 786.09 RESPIRATORY ABNORM NEC 05/25/2017 Ot 786.09 RESPIRATORY ABNORM NEC 05/25/2017 Ot 796.4 ABN CLINICAL FINDING NEC 05/25/2017 Ot V72.84 EXAM PRE- OPERATIVE NOS 05/25/2017 Ot 786.09 RESPIRATORY ABNORM NEC 05/25/2017 Ot 259.9 ENDOCRINE DISORDER NOS 05/25/2017 Ot 268.9 VITAMIN D DEFICIENCY NOS 05/25/2017 Ot V77.91 SCREEN LIPOID DISORDERS 05/25/2017 Ot 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 05/25/2017 Ot V58.81 FIT/ADJ VASCULAR CATHETER 05/25/2017 ALONSO HAWKINS, YESIKA [place] Ot 715.96 OSTEOARTHROS NOS-L/LEG 05/25/2017 ALONSO HAWKINS, YESIKA [place] Ot 780.79 OTH MALAISE FATIGUE 05/25/2017 ALONSO HAWKINS, YESIKA [place] Ot V72.63 PRE-PROCEDURAL LABORATORY EXAMINATION 05/25/2017 ALONSO HAWKINS, YESIKA [place] Ot V72.81 CTIL-OSP-NIWHADDAE CARDIOVASCULAR 05/25/2017 YESIKA GUPTA MD Ot V72.83 EXAM PRE-OPERATIVE NEC 05/25/2017 YESIKA GUPTA MD Ot V74.8 SCREEN-BACTERIAL DIS NEC 05/25/2017 Ot 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 05/25/2017 Ot V58.81 FIT/ADJ VASCULAR CATHETER 05/25/2017 CATHLEEN HAWKINS, SUZIE [place] Ot V72.84 EXAM PRE-OPERATIVE NOS 05/25/2017 TONY TURNER DO Ot 733.90 BONE CARTILAGE DIS NOS 05/25/2017 TONY TURNER DO Ot 611.72 LUMP OR MASS IN BREAST 05/25/2017 MASON BELLO MD Ot Z01.818 ENCOUNTER FOR OTHER PREPROCEDURAL EXAMIN 05/25/2017 MASON BELLO MD Ot Z85.038 PERSONAL HISTORY OF MALIGNANT NEOPLASM O 05/25/2017 TONY TURNER DO Ot I48.2 CHRONIC ATRIAL FIBRILLATION 05/25/2017 TONY TURNER DO, Ot I48.91 UNSPECIFIED ATRIAL FIBRILLATION 05/25/2017 ARNULFO TURNER Ot Z45.2 ENCOUNTER FOR ADJUSTMENT AND MANAGEMENT 05/25/2017 TONY TURNER DO Ot E87.1 HYPO-OSMOLALITY AND HYPONATREMIA 05/25/2017 TONY RANDALL MD, Ot I48.0 PAROXYSMAL ATRIAL FIBRILLATION 05/25/2017 TONY TURNER DO, Ot R55 SYNCOPE AND COLLAPSE 05/25/2017 TONY TURNER DO, Ot R55 SYNCOPE AND COLLAPSE 05/25/2017 TONY TURNER DO, Ot M19.012 PRIMARY OSTEOARTHRITIS, LEFT SHOULDER 05/25/2017 TONY TURNER DO Ot M75.122 COMPLETE ROTATR-CUFF TEAR/RUPTR OF LEFT 05/25/2017 TONY TURNER DO Ot S43.402A UNSPECIFIED SPRAIN OF LEFT SHOULDER JOIN 05/25/2017 TONY TURNER DO Ot X58.XXXA EXPOSURE TO OTHER SPECIFIED FACTORS, INI 05/25/2017 TONY TURNER DO Ot Y99.8 OTHER EXTERNAL CAUSE STATUS 05/25/2017 ARNULFO TURNER Ot Z45.2 ENCOUNTER FOR ADJUSTMENT AND MANAGEMENT 05/25/2017 TONY TURNER DO Ot M75.102 UNSP ROTATR-CUFF TEAR/RUPTR OF LEFT SHOU 05/25/2017 YESIKA GUPTA MD Ot S46.012D STRAIN OF MUSC/TEND THE ROTATOR CUFF OF 05/25/2017 YESIKA GUPTA MD Ot W19.XXXD UNSPECIFIED FALL, SUBSEQUENT ENCOUNTER 05/30/2017 YESIKA GUPTA MD, Ot S76.112D STRAIN OF LEFT QUADRICEPS MUSCLE, FASCIA 06/14/2017 YESIKA GUPTA MD, Ot S76.112D STRAIN OF LEFT QUADRICEPS MUSCLE, FASCIA Procedures Code Description Performed By Performed On 81.54 TOTAL KNEE REPLACEMENT 01/02/2013 Results Test Result Range Methicillin resistant Staphylococcus aureus (MRSA) screening culture - 11:50 Methicillin resistant Staphylococcus aureus (MRSA) screening culture NEG [facility] Automated blood complete blood count (hemogram) panel - 03/03/16 12:01 Blood leukocytes automated count (number/volume) 8.1 10*3/uL 4.3-11.0 Blood erythrocytes automated count (number/volume) 3.97 10*6/uL 4.35-5.85 Venous blood hemoglobin measurement (mass/volume) 12.4 [...] Automated blood platelet mean volume measurement 10.5 [foz_us] 7.4-10.4 Methicillin resistant Staphylococcus aureus (MRSA) screening culture - 09:25 Methicillin resistant Staphylococcus aureus (MRSA) screening culture NEG [facility] Automated blood complete blood count (hemogram) panel - 01/05/17 09:32 Blood leukocytes automated count (number/volume) 7.1 10*3/uL 4.3-11.0 Blood erythrocytes automated count (number/volume) 3.79 10*6/uL 4.35-5.85 Venous blood hemoglobin measurement (mass/volume) 11.9 g/dL 11.5-16.0 Blood hematocrit (volume fraction) 35 % 35-52 Automated erythrocyte mean corpuscular volume 92 [foz_us] 80-99 Automated erythrocyte mean corpuscular hemoglobin (mass per erythrocyte) 31 pg 25-34 Automated erythrocyte mean corpuscular hemoglobin concentration measurement ( mass/volume) 34 g/dL 32-36 Automated erythrocyte distribution width ratio 14.6 % 10.0-14.5 Automated blood platelet count (count/volume) 224 10*3/uL 130-400 Automated blood platelet mean volume measurement 10.1 [foz_us] 7.4-10.4 Methicillin resistant Staphylococcus aureus (MRSA) screening culture - 11:30 Methicillin resistant Staphylococcus aureus (MRSA) screening culture NEG NRG Encounters ACCT No. Visit Date/Time Discharge Status Pt. Type Provider Facility Loc./Unit Complaint [id number] 06/21/2017 09:04:00 06/21/2017 09:49:00 DIS Outpatient MASON BELLO MD Via [facility] PREOP COLONOSCOPY/EGD [id number] 05/12/2017 11:38:00 05/15/2017 08:00:00 DIS Outpatient YESIKA GUPTA MD Via [facility] REHAB S/P L SHOULDER RCR [id number] 05/13/2017 22:14:00 05/14/2017 00:35:00 DIS Emergency YUE QUESADA DO Via [facility] ER L KNEE PAIN [id number] 04/19/2017 06:03:00 04/19/2017 11:30:00 DIS Outpatient YESIKA GUPTA MD Via [facility] LT SHOULDER TORN ROTATOR CUFF [id number] 04/10/2017 10:58:00 04/10/2017 11:35:00 DIS Outpatient YESIKA GUPTA MD Via [facility] PREOP LT SHOULDER ARTHROSCOPY, OPEN ROTATOR CUFF REPAIR [id number] 03/24/2017 10:04:00 03/24/2017 23:59:59 CLS Outpatient TONY TURNER DO Via [facility] RAD SUPRASPINATUS TEAR M75 [id number] 03/09/2017 11:27:00 03/09/2017 23:59:59 CLS Outpatient TONY TURNER DO Via [facility] RAD TRAUMA, ROTATOR CUFF INJURY [id number] 03/08/2017 00:22:00 03/08/2017 23:59:59 C[facility]read[id number] 03/06/2017 10:45:00 03/07/2017 00:01:00 DIS Outpatient ARNULFO TURNER Via [facility] [place] [id number] 01/05/2017 08:57:00 01/05/2017 15:05:00 DIS Outpatient MASON BELLO MD Via [facility] REDUCIBLE INCISIONAL ABDOMINAL HERNIA [id number] 12/28/2016 09:05:00 12/28/2016 13:47:00 DIS Outpatient MASON BELLO MD Via [facility] PREOP OPEN REPAIR INC. HERNIA WITH MESH [id number] 11/03/2016 13:04:00 11/15/2016 00:01:00 DIS Outpatient ARNULFO TURNER EXTRACTOR FILLER Via [facility] [place] [id number] 07/19/2016 12:36:00 07/27/2016 00:01:00 DIS Outpatient ARNULFO TURNER EXTRACTOR FILLER Via [facility] [place] [id number] 06/08/2016 11:30:00 06/08/2016 23:59:59 CLS Preadmit TONY TURNER DO Via [facility] CARD SYNCOPE [id number] 03/09/2016 11:11:00 06/07/2016 00:01:00 DIS Outpatient TONY TURNER DO Via [facility] CARD SYNCOPE [id number] 01/06/2016 12:48:00 04/05/2016 00:01:00 DIS Outpatient ARNULFO TURNER EXTRACTOR FILLER Via [facility] [place] [id number] 03/18/2016 13:25:00 03/18/2016 23:59:59 CLS Outpatient TONY TURNER DO Via [facility] RAD R55 [id number] 03/03/2016 11:35:00 03/03/2016 18:45:00 DIS Outpatient MASON BELLO MD Via [facility] RIGHT INGUINAL HERNIA [id number] 03/02/2016 08:44:00 03/02/2016 09:34:00 DIS Outpatient MASON BELLO MD Via [facility] PREOP RIGHT INGUINAL HERNIA [id number] 11/25/2015 13:58:00 12/16/2015 00:01:00 DIS Outpatient ARNULFO TURNER EXTRACTOR FILLER Via [facility] PORT [id number] 11/20/2015 14:07:00 11/20/2015 23:59:59 CLS Outpatient TONY RANDALL MD Via [facility] CARD PROXYSMAL A FIB [id number] 11/10/2015 21:25:00 11/10/2015 23:59:59 CLS Outpatient TONY TURNER DO Via [facility] LABNPT Cachexia and hypernatremia [id number] 11/10/2015 21:10:00 11/10/2015 22:54:00 DIS Emergency HONORIO ABBOTT APRN Via [facility] ER R HAND FINGER INJ [id number] 11/05/2015 00:08:00 11/05/2015 23:59:59 CLS Preadmit TONY TURNER DO Via [facility] REHAB [id number] 10/01/2015 09:57:00 11/04/2015 00:01:00 DIS Outpatient TONY TURNER DO Via [facility] REHAB LUMBAGO; SCOLIOSIS [id number] 10/26/2015 00:08:00 10/26/2015 23:59:59 CLS Preadmit ARNULFO TURNER EXTRACTOR FILLER Via [facility] PORT [id number] 07/27/2015 09:51:00 10/25/2015 00:01:00 DIS Outpatient ARNULFO TURNER EXTRACTOR FILLER Via [facility] PORT [id number] 10/02/2015 00:19:00 10/02/2015 02:14:00 DIS Emergency ARIANE MUNROE MD Via [facility] ER A-FIB [id number] 09/18/2015 07:23:00 09/18/2015 23:59:59 CLS Outpatient TONY TURNER DO Via [facility] CARD UNSPECIFIED A-FIB [id number] 09/17/2015 13:05:00 09/17/2015 23:59:59 CLS Outpatient TONY TURNER DO Via [facility] CARD CHRONIC A-FIB I48.2 [id number] 09/12/2015 20:34:00 09/12/2015 21:45:00 DIS Emergency KUMAR REED MD Via [facility] ER IRR HEART RATE/SOA [id number] 08/19/2015 09:34:00 08/19/2015 13:35:00 DIS Outpatient MASON BELLO MD Via [facility] HISTORY OF COLON CANCER [id number] 08/18/2015 05:39:00 08/18/2015 23:59:59 CLS Outpatient MASON BELLO MD Via [facility] PREOP SCREENING [id number] 05/04/2015 11:57:00 08/02/2015 00:01:00 DIS Outpatient ARNULFO TURNERP [facility] PORT [id number] 04/06/2015 11:05:00 04/08/2015 00:01:00 DIS Outpatient ARNULFO TURNER EXTRACTOR FILLER [facility] [id number] 02/06/2015 09:53:00 02/06/2015 23:59:59 CLS Outpatient TONY TURNER DO Via [facility] RAD LUMP HEMATOMA [id number] 01/29/2015 08:13:00 01/29/2015 23:59:59 CLS Outpatient TONY TURNER DO Via [facility] RAD OSTEOPORSIS [id number] 12/17/2014 11:02:00 01/12/2015 00:01:00 DIS Outpatient ARNULFO TURNER EXTRACTOR FILLER [facility] [id number] 08/05/2014 11:07:00 08/05/2014 23:59:59 CLS Outpatient ARNULFO TURNER EXTRACTOR FILLER [facility] [place] [id number] 05/02/2014 13:47:00 05/12/2014 00:01:00 DIS Out[facility] [id number] 03/03/2014 07:19:00 03/03/2014 10:40:00 DIS Outpatient CATHLEEN HAWKINS, SUZIE Noyola Via [facility] UPPER GASTRIC PAIN; ABDOMINAL PAIN [id number] 02/27/2014 09:14:00 02/27/2014 23:59:59 CLS Outpatient SUZIE CONNOLLY MD Via [facility] PREOP UPPER GASTRIC PAIN ; ABDOMINAL PAIN [id number] 12/19/2013 11:24:00 12/30/2013 00:01:00 DIS Outpatient TONY TURNER DO Via [facility] [place] [id number] 07/22/2013 11:37:00 09/10/2013 00:01:00 DIS Outpatient TONY TURNER DO Via [facility] [place] [id number] 06/12/2013 10:52:00 06/17/2013 00:01:[address] EM MD [facility] ONC PORT FLUSH [id number] 03/12/2013 08:54:00 03/14/2013 10:53:00 DIS Outpatient YESIKA GUPTA MD Via [facility] REHAB B TKR [id number] 12/07/2012 11:41:00 03/07/2013 00:01:[address] EM MD [facility] ONC PORT FLUSH [id number] 01/07/2013 10:10:00 01/21/2013 12:30:00 DIS Inpatient ULISES DAVIS MD Via [facility] IRF DEGENERATIVE ARTHRITIS [id number] 01/02/2013 06:05:00 01/07/2013 10:10:00 DIS Inpatient YESIKA GUPTA MD Via [facility] SURGICAL DEGENERATIVE ARTHRITIS [id number] 12/26/2012 09:47:00 12/26/2012 23:59:59 CLS Outpatient YESIKA GUPTA MD Via [facility] PREOP DEGENERATIVE ARTHRITIS [id number] 06/22/2017 11:30:00 PEN Preadmit MASON BELLO MD Via [facility] ENDO CHANGE IN BOWEL HABITS/HX COLON CA/REFLUX [id number] 06/20/2017 09:30:00 ACT Outpatient YESIKA GUPTA MD Via [facility] [id number] 01/29/2015 08:10:00 Document Registration [id number] 01/29/2015 08:09:00 Document Registration [id number] 01/29/2015 08:09:00 Document Registration [id number] 01/29/2015 08:09:00 Document Registration [id number] 01/29/2015 08:09:00 Document Registration [id number] 01/29/2015 08:09:00 Document Registration [id number] 06/18/2013 00:00:00 Document Registration [id number] 10/19/2012 13:42:00 Document Registration [id number] 08/22/2012 08:23:00 Document Registration [id number] 05/18/2012 09:04:00 Document Registration [id number] 05/17/2012 07:23:00 Document Registration [id number] 05/16/2012 06:44:00 Document Registration [id number] 04/20/2012 09:49:00 Document Registration [id number] 04/11/2012 05:59:00 Document Registration [id number] 04/03/2012 10:24:00 Document Registration [id number] 01/16/2012 10:05:00 Document Registration [id number] 11/16/2011 22:00:00 Document Registration [id number] 10/26/2011 08:59:00 Document Registration [id number] 10/21/2011 11:12:00 Document Registration [id number] 10/15/2011 19:35:00 Document Registration [id number] 09/04/2011 07:50:00 Document Registration [id number] 08/31/2011 10:41:00 Document Registration [id number] 12/21/2010 08:38:00 Document Registration [id number] 12/21/2010 08:26:00 Document Registration [id number] 10/19/2010 11:29:00 Document Registration [id number] 09/10/2010 11:45:00 Document Registration [id number] 07/20/2010 13:25:00 Document Registration [id number] 04/21/2010 15:03:00 Document Registration [id number] 03/23/2010 09:31:00 Document Registration [id number] 01/06/2010 08:26:00 Document Registration [id number] 11/27/2009 08:20:00 Document Registration [id number] 09/30/2009 08:47:00 Document Registration [id number] 09/30/2009 08:40:00 Document Registration [id number] 08/31/2009 10:14:00 Document Registration
[2017-06-22] MEDS ORDERED: NS IV 500 ML 500 ML IV PRN (11:43)
[2017-06-22] MEDS ORDERED: LIDOCAINE JELLY 2% (XYLOCAINE) 5 ML TUBE MM PRN (11:45)
[2017-06-22] MEDS ORDERED: HURRICAINE EXT TUBE (BENZOCAINE) XX PRN (11:45)
[2017-06-22 12:03] VITALS: BP 172/78
--- NOTE | 2017-06-22 13:13 | Conscious Sedation/ASA ---
Conscious Sedation Pre-Proced Time Reviewed: 13:00 ASA Class: 2 Airway Mallampati Classification: (ruby appropriate class) I. II. III, IV Lungs Heart ASA score ASA 1: a normal healthy patient ASA 2: a patient with a mild systemic disease (mid diabetes, controlled hypertension, obesity ASA 3: a patient with a severe systemic disease that limits activity (angina , COPD, prior Myocardial infarction) ASA 4: a patient with an incapacitating disease that is a constant threat to life (CHF, renal failure) ASA 5: a moribund patient not expected to survive 24 hrs. (ruptured aneurysm) ASA 6: a declared brain patient whose organs are being harvested. For emergent operations, add the letter E after the classification Grade 2 Sedation Plan: Analgesia, Amnesia, Plan communicated to team members, Discussed options with patient/fam, Discussed risks with patient/fam Note The patient is an appropriate candidate to undergo the planned procedure, sedation, and anesthesia. The patient immediately re-assessed prior to indication. MASON BELLO MD Jun 22, 2017 1:13 pm
--- NOTE | 2017-06-22 13:14 | Progress Note-Pre Operative ---
Pre-Operative Progress Note H&P Reviewed The H&P was reviewed, patient examined and no changes noted. Date Seen by Provider: Jun 22, 2017 Time Seen by Provider: 13:00 Date H&P Reviewed: Jun 22, 2017 Time H&P Reviewed: 13:00 Pre-Operative Diagnosis: anemia, GERD, dark tarry stools MASON BELLO MD Jun 22, 2017 1:14 pm
[2017-06-22] MEDS ORDERED: HYDROcodone/APAP 5 MG/325 MG (LORTAB) TAB PO PRN (13:15)
[2017-06-22] MEDS ORDERED: ACETAMINOPHEN 325 MG TABLET/CAPLET (TYLENOL) PO PRN (13:15)
[2017-06-22] MEDS ORDERED: ONDANSETRON 4 MG/2 ML (SDV) Z0FRAN IV PRN (13:15)
[2017-06-22] MEDS ORDERED: morphine INJ 10 MG/ML 1ML (SYR OR VIAL) IV PRN (13:15)
[2017-06-22] MEDS ORDERED: MIDAZOLAM 2 MG/2 ML (VERSED) VIAL ONE ×5 (13:34→14:34)
[2017-06-22] MEDS ORDERED: fentaNYL INJECTION 100 MCG/2 ML AMP ONE (13:34)
[2017-06-22] MEDS ORDERED: HURRICAINE EXT TUBE (BENZOCAINE) ONE (13:34)
[2017-06-22] MEDS ORDERED: LIDOCAINE JELLY 2% (XYLOCAINE) 5 ML TUBE ONE (13:34)
[2017-06-22] MEDS: MIDAZOLAM 2 MG/2 ML (VERSED) VIAL IVP PRN ×5 (13:47→14:35)
[2017-06-22] MEDS: fentaNYL INJECTION 100 MCG/2 ML AMP IVP PRN ×2 (13:49→14:07)
--- NOTE | 2017-06-22 15:04 | Progress Note-Post Operative ---
Post-Operative Progess Note Surgeon (s)/Reception (s) Surgeon MASON BELLO MD Reception: none Pre-Operative Diagnosis anemia, GERD, dark tarry stools Post-Operative Diagnosis reflux esophagitis(class B), no HH, mild-mod gastritis. chronic stage 2 ext and int hemorrhoids, normal anastomosis, polyp right colon x2, splenic flexure x2, rectosigmoid. Procedure & Operative Findings Date of Procedure 06/22/17 Procedure Performed/Findings EGD with bx. Colonoscopy with bx. Anesthesia Type CS Estimated Blood Loss Estimated blood loss (mL): minimal Specimens/Packing Specimens Removed hepatic flexure polpy x2, splenic flexure x2, rectosigmoid polyp. MASON BELLO MD Jun 22, 2017 3:04 pm
[2017-06-22 15:10] VITALS: BP 168/73
--- NOTE | 2017-06-22 15:10 | Discharge Inst-Surgical ---
D/C Lap Instructions-EUGENIA Follow Up Appt in 4 weeks Activity as tolerated High Fiber Diet 25g or more per day Avoid Alcohol, Caffeine, Spicy [place] and Acid foods. Drink 64 fluid oz or more of fluids per day. Symptoms to Report: Fever over 101 degree F, Nausea/Vomiting If any problems/questions: Contact your physician or go to Emergency Room MASON BELLO MD Jun 22, 2017 3:10 pm
[2017-06-22 15:40] VITALS: BP 175/73
[2017-06-22 16:05] VITALS: BP 175/73
--- NOTE | 2017-06-22 20:00 | OPERATIVE REPORT ---
DATE OF SERVICE: 06/22/2017 ATTENDING PHYSICIAN: Dr. Ryan Eagle. PREOPERATIVE DIAGNOSIS: Anemia elevated MCV, MCH, RDW, several episodes of dark tarry stools, history of colonic polyps and colon cancer. POSTOPERATIVE DIAGNOSIS: Reflux esophagitis class B, no hiatal hernia. Mild to moderate gastritis. Pylorus and duodenum appeared normal. No active bleeding sources. Colonoscopy chronic stage II external and internal hemorrhoids. Multiple small colonic polyps each approximately 2 to 3 mm in size. One at the rectosigmoid junction, 2 at the splenic flexure, 2 appeared to be at the ascending colon near the cecum. No active bleeding source identified. PROCEDURE: EGD with biopsy. Colonoscopy with biopsy. SURGEON: Dr. Bello. ANESTHESIA: Conscious sedation. ESTIMATED BLOOD LOSS: Minimal. FINDINGS: EGD reflux esophagitis class B no hiatal hernia. Mild to moderate gastritis, no ulcers, polyps or any neoplasms identified as well as no active bleeding sources. Pylorus and duodenum appeared normal with no distal obstructions. Colonoscopy chronic stage II external and internal hemorrhoids, not actively edematous nor inflamed and no bleeding. There were multiple small polyps each approximately 2 to 3 mm in size. One at the rectosigmoid junction, 2 at the splenic flexure. It appeared that she had some form of segmental colonic resection, which may indicate a transverse colectomy. The remainder of the right colon near the cecum there were 2 polyps near the splenic flexure as well as 2 polyps near the cecum. No active bleeding source identified. DISPOSITION: The patient tolerated the procedure well. The patient is an 81-year-old female known to us. She was initially seen for followup colonoscopy. She was diagnosed with a right-sided colon cancer, underwent some form of segment of colon resection, which may indicate a right hemicolectomy versus a transverse colectomy. She underwent an EGD in 2006 and was diagnosed with celiac sprue as well as pancreatic insufficiency. She did have a colonoscopy 05/2012 where 2 small polyps identified, biopsied and found to be benign. Then she underwent a followup colonoscopy in August 2015, which showed two tubular adenomas. She has had an issue with dark tarry stools recently as well as pain in the epigastric region. She has been on Eliquis for history of atrial fibrillation as well as history of stroke. The patient was brought to the endoscopy suite, laid in the left lateral decubitus position. After adequate IV pain and sedating medications and conscious sedation anesthesia, the mouthpiece was applied. Endoscope was placed in the mouth, visualizing the pharynx and hypopharyngeal region. Vocal cords, epiglottis and vallecula identified and appeared to be normal. The endoscope was then gently intubated at the esophageal opening and esophagus insufflated. The endoscope was then advanced to the first, second and third portion of the esophagus. At the level of the GE junction, a reflux esophagitis class B identified. There were no ulcers or strictures or bleeding source was identified. A biopsy was taken with forceps with visualization of good hemostasis. The endoscope was then easily advanced in the stomach and the endoscope retroflexed visualizing no hiatal hernia. A mild to moderate gastritis was noted. There were no ulcers, polyps or any neoplasms identified. A biopsy was taken of the stomach antrum with forceps with visualization of good hemostasis. The endoscope was then advanced to the pylorus and the first and second portions of the duodenum, which appeared normal with no distal obstructions. The endoscope was then slowly withdrawn taking a second look and suctioning of residual air with no additional findings. The patient tolerated this portion of the procedure well. There were no bleeding sources identified and only mild to moderate gastritis. We will recommend a continued lifestyle and diet changes including small and more frequent meals, avoidance of eating at night as well as head elevation while lying supine. She also needs to avoid caffeinated beverages, spicy, greasy and acidic foods. We will also have her continue with Protonix 40 mg daily. Under the same conscious sedation anesthesia, we then proceeded with the colonoscopy portion of procedure. A digital rectal examination was performed which revealed chronic stage II external and internal hemorrhoids, not actively edematous nor inflamed and no bleeding. Normal sphincter tone was felt and there were no palpable masses. The endoscope was then intubated to the anus, rectum and gently insufflated. The endoscope was then advanced to the valves of Virk of the rectum with no polyps or any neoplasms identified. At the rectosigmoid junction, a small polyp approximately 3 mm in size was identified. This was biopsied and destroyed using forceps and electrocautery with visualization of good hemostasis. The endoscope was then advanced through the left colon at approximately the splenic flexure, there were two small polyps again approximately 2 to 3 mm in size identified. These were biopsied and destroyed using forceps and electrocautery with visualization of good hemostasis. It appeared she did have some form of segmental colonic resection with the anastomosis appearing normal. This appeared to be a transverse colectomy. The endoscope was then advanced to what appeared to be the hepatic flexure as well as the remainder of the right colon. At the proximal right colon closer to the cecum there were again 2 small similar polyps which were biopsied and destroyed using forceps and electrocautery. The cecum appeared normal. The endoscope was then slowly withdrawn taking a second look and suctioning residual air with no additional findings. The patient tolerated the procedure well. We will recommend diet and lifestyle changes including a high fiber diet with at least 25 to 30 grams of fiber per day as well as at least 64 fluid ounces of water daily to promote soft stools on a daily basis. It appears that she is a polyp former and also does have a history of colon cancer. She is 81 years old and we will await the biopsy results. If there is a villous component to any of these polyps we may recommend a followup colonoscopy in three years; however, this will be up to her. Job ID: [id number] DocumentID: [id number] Dictated Date: 06/22/2017 15:22:23 Automation Developer Date: 06/22/2017 19:59:24 Dictated By: MASON BELLO MD
== END 2017-06-22 16:05 | disposition home or self-care (01) ==
LOC: ENDO 10:45
PROVIDERS: ATTEND Surgery
DX: D12.2 Benign neoplasm of ascending colon (principal); K63.5 Polyp of colon; K21.0 Gastro-esophageal reflux disease with esophagitis; K29.70 Gastritis, unspecified, without bleeding; K64.1 Second degree hemorrhoids; D64.9 Anemia, unspecified; I48.91 Unspecified atrial fibrillation; K90.0 Celiac disease; M81.0 Age-related osteoporosis without current pathological fracture; K58.9 Irritable bowel syndrome, unspecified; M19.91 Primary osteoarthritis, unspecified site; E53.8 Deficiency of other specified B group vitamins; M41.9 Scoliosis, unspecified; I73.9 Peripheral vascular disease, unspecified; Z86.010 Personal history of colon polyps; Z85.038 Personal history of other malignant neoplasm of large intestine; Z79.01 Long term (current) use of anticoagulants; Z79.899 Other long term (current) drug therapy; Z86.73 Personal history of transient ischemic attack (TIA), and cerebral infarction without residual deficits; Z98.0 Intestinal bypass and anastomosis status
CPT/HCPCS: 88305

== ENCOUNTER 2017-08-10 08:47 | Outpatient (RCR) | payer MEDICARE, OTHER ==
[~2017-08-10 08:47] MED LIST changes: +HYDR-34 PO; -HYDR-3816 PO
== END 2017-08-13 | disposition home or self-care (01) ==
PROVIDERS: ATTEND Orthopaedic Surgery
DX: S76.112D Strain of left quadriceps muscle, fascia and tendon, subsequent encounter (principal)

== ENCOUNTER 2017-09-12 09:58 | Outpatient (RCR) | payer MEDICARE, OTHER | END 2017-09-12 11:08 | disposition home or self-care (01) | PROVIDERS: ATTEND Orthopaedic Surgery | DX: S76.112D Strain of left quadriceps muscle, fascia and tendon, subsequent encounter (principal) ==

== ENCOUNTER 2017-11-06 11:27 | Outpatient (RCR) | payer MEDICARE, OTHER ==
[2017-08-14 13:35] VITALS: BP 152/75
[2017-09-11 13:02] VITALS: BP 149/70
[2017-10-09 13:28] VITALS: BP 177/78
[~2017-11-06] VITALS: Ht 147.3 cm; Wt 59.9 kg
[2017-11-06 11:35] VITALS: BP 163/68
== END 2017-11-12 | disposition home or self-care (01) ==
LOC: SDC 11:27
PROVIDERS: ATTEND Internal Medicine
DX: Z45.2 Encounter for adjustment and management of vascular access device (principal)
CPT/HCPCS: 96523

== ENCOUNTER 2018-04-03 14:36 | Outpatient (RCR) | payer MEDICARE, OTHER ==
[~2018-04-03] VITALS: Ht 147.3 cm; Wt 59.9 kg
[~2018-04-03 14:36] MED LIST changes: -AMIO200T2 PO; +AMIO200T4 PO; -AMLO2.5T PO; +AMLO2.5T3 PO; -AMLO5TAB2 PO; +AMLO5TAB7 PO
[2018-04-03 14:40] VITALS: BP 184/83
== END 2018-04-08 | disposition home or self-care (01) ==
LOC: SDC 14:36
PROVIDERS: ATTEND Internal Medicine
DX: Z45.2 Encounter for adjustment and management of vascular access device (principal)
CPT/HCPCS: 96523

== ENCOUNTER 2018-05-10 13:28 | Outpatient (RCR) | payer MEDICARE, OTHER ==
[~2018-05-10] VITALS: Ht 147.3 cm; Wt 59.9 kg
[2018-05-10 13:50] VITALS: BP 128/74
[2018-05-10] MEDS ORDERED: CATHETER FLUSH 10 ML SYR IV PRN (14:00)
== END 2018-05-10 13:50 | disposition home or self-care (01) ==
LOC: SDC 13:28
PROVIDERS: ATTEND Internal Medicine
DX: Z45.2 Encounter for adjustment and management of vascular access device (principal)
CPT/HCPCS: 96523

== ENCOUNTER → 2018-05-21 | Outpatient (CLI) | payer MEDICARE, OTHER ==
[~2018-05-21] MED LIST changes: +RT-ALBUTEROL SULF 2.5 MG/3 ML PRE-MIX VIAL INH ONE
--- NOTE | 2018-05-21 08:32 | Diagnostic Imaging Report ---
PATIENT HISTORY: Dyspnea. TECHNIQUE: Two views of the chest. COMPARISON: 10/02/2015. FINDINGS: Lung volumes are mildly large. No focal consolidation is seen. There is no pleural effusion or pneumothorax. The cardiac silhouette is normal in size. The telemetry monitor device is noted. There is aortic atherosclerosis. Postsurgical changes are seen at the femoral heads bilaterally. There is unchanged scoliotic curvature of the thoracolumbar spine. The left subclavian line is unchanged. IMPRESSION: Mildly large lung volumes with no acute pulmonary abnormalities seen. Dictated by: Dictated on workstation # [id number]
== END ==
LOC: RT 08:01
PROVIDERS: ATTEND Internal Medicine
DX: R06.00 Dyspnea, unspecified (principal)
CPT/HCPCS: 71046; 94060; 94726; 94729

== ENCOUNTER 2018-09-17 10:56 | Outpatient (RCR) | payer MEDICARE, OTHER ==
[2018-06-25 14:25] VITALS: BP 148/68
[2018-07-23 11:30] VITALS: BP 101/67
[2018-08-20 12:10] VITALS: BP 145/67
[~2018-09-17] VITALS: Ht 147.3 cm; Wt 59.9 kg
[~2018-09-17 10:56] MED LIST changes: -AMLO2.5T3 PO; +AMLO2.5T4 PO; -AMLO5TAB7 PO; +AMLO5TAB9 PO; -RT-ALBUTEROL SULF 2.5 MG/3 ML PRE-MIX VIAL INH ONE
[2018-09-17 11:28] VITALS: BP 142/64
== END 2018-09-23 | disposition home or self-care (01) ==
LOC: SDC 10:56
PROVIDERS: ATTEND Nurse Practitioner Family
DX: Z45.2 Encounter for adjustment and management of vascular access device (principal)
CPT/HCPCS: 96523

== ENCOUNTER 2019-01-16 12:50 | Outpatient (RCR) | payer MEDICARE, OTHER ==
[2018-10-23 11:05] VITALS: BP 106/71
[2018-11-21 11:45] VITALS: BP 142/78
[~2019-01-16] VITALS: Ht 147.3 cm; Wt 59.9 kg
[~2019-01-16 12:50] MED LIST changes: +HYDROcodone/APAP 5 MG/325 MG (LORTAB) TAB ONE
[2019-01-16 12:55] VITALS: BP 142/72
== END 2019-01-21 | disposition home or self-care (01) ==
LOC: SDC 12:50
PROVIDERS: ATTEND Nurse Practitioner Family
DX: Z45.2 Encounter for adjustment and management of vascular access device (principal)
CPT/HCPCS: 96523

== ENCOUNTER 2019-05-03 13:32 | Outpatient (RCR) | payer MEDICARE, OTHER ==
[2019-02-13 13:15] VITALS: BP 167/66
[2019-03-14 13:05] VITALS: BP 148/66
[2019-04-05 13:43] VITALS: BP 173/75
[~2019-05-03] VITALS: Ht 147.3 cm; Wt 60.0 kg
[~2019-05-03 13:32] MED LIST changes: -HYDROcodone/APAP 5 MG/325 MG (LORTAB) TAB ONE
[2019-05-03 14:04] VITALS: BP 176/72
== END 2019-05-14 | disposition home or self-care (01) ==
LOC: SDC 13:32
PROVIDERS: ATTEND Nurse Practitioner Family
DX: Z45.2 Encounter for adjustment and management of vascular access device (principal)
CPT/HCPCS: 96523

== ENCOUNTER 2019-08-13 13:35 | Outpatient (RCR) | payer MEDICARE, OTHER ==
[2019-07-08 13:38] VITALS: BP 164/79
[~2019-08-13] VITALS: Ht 147.3 cm; Wt 60.0 kg
[~2019-08-13 13:35] MED LIST changes: -DIGO125T PO; +DIGO125T3 PO; +VITA-272 PO; -VITA400C58 PO
[2019-08-13 13:48] VITALS: BP 164/77
== END 2019-09-02 | disposition home or self-care (01) ==
LOC: SDC 13:35
PROVIDERS: ATTEND Nurse Practitioner Family
DX: Z45.2 Encounter for adjustment and management of vascular access device (principal)
CPT/HCPCS: 96523

== ENCOUNTER 2019-11-18 13:21 | Outpatient (RCR) | payer MEDICARE, OTHER ==
[2019-09-10 13:33] VITALS: BP 146/66
[2019-10-17 12:27] VITALS: BP 142/73
[~2019-11-18 13:21] MED LIST changes: +ZINC50TA11 PO; -ZINC50TA4 PO
[2019-11-18 13:30] VITALS: BP 167/69
== END 2019-12-09 | disposition home or self-care (01) ==
LOC: SDC 13:21
PROVIDERS: ATTEND Nurse Practitioner Family
DX: Z45.2 Encounter for adjustment and management of vascular access device (principal)
CPT/HCPCS: 96523

== ENCOUNTER 2020-01-13 11:12 | Outpatient (RCR) | payer MEDICARE, OTHER ==
[2019-12-16 11:30] VITALS: BP 136/66
[~2020-01-13] VITALS: Ht 149.9 cm; Wt 60.0 kg
[2020-01-13 11:20] VITALS: BP 139/60
[2020-02-07] MEDS ORDERED: CHOL200074 PO (10:30)
[2020-02-07] MEDS ORDERED: PANT40TA2 PO (10:30)
[2020-02-10] MEDS ORDERED: PROPOFOL INJECTION 50 ML IV ONE (10:57)
== END 2020-03-15 | disposition home or self-care (01) ==
LOC: SDC 11:12
PROVIDERS: ATTEND Nurse Practitioner Family
DX: Z45.2 Encounter for adjustment and management of vascular access device (principal)
CPT/HCPCS: 96523

== ENCOUNTER 2020-01-30 12:21 | Outpatient (RCR) | payer MEDICARE, OTHER ==
[2020-02-07] MEDS ORDERED: CHOL200074 PO (10:30)
[2020-02-07] MEDS ORDERED: PANT40TA2 PO (10:30)
== END 2020-04-29 | disposition home or self-care (01) ==
LOC: LAB 12:21
PROVIDERS: ATTEND Nurse Practitioner Family
DX: R19.7 Diarrhea, unspecified (principal)
CPT/HCPCS: 82274; 87015; 87045; 87046; 87328; 87329; 87899

== ENCOUNTER 2020-02-07 09:14 | Outpatient (RCR) | payer MEDICARE, OTHER ==
[~2020-02-07] VITALS: Ht 147 cm; Wt 60.5 kg
[2020-02-07] MEDS ORDERED: CHOL200074 PO (10:30)
[2020-02-07] MEDS ORDERED: PANT40TA2 PO (10:30)
== END 2020-02-07 10:34 | disposition home or self-care (01) ==
LOC: PREOP 09:14
PROVIDERS: ATTEND Surgery
DX: Z01.818 Encounter for other preprocedural examination (principal)

== ENCOUNTER 2020-02-10 09:41 | Emergency (ER) | payer MEDICARE, OTHER ==
[~2020-02-10] VITALS: Ht 147.3 cm; Wt 60.3 kg
[~2020-02-10 09:41] MED LIST changes: +CHOL200074 PO; +PANT40TA2 PO
--- NOTE | 2020-02-10 09:53 | ED General ---
General Chief Complaint: Neurological Problems Stated Complaint: STROKE LIKE SYMPTOMS Source of Information: Patient History of Present Illness Date Seen by Provider: Feb 10, 2020 Time Seen by Provider: 09:53 Initial Comments 84-year-old female brought in following an episode of confusion and speech problems. Reported that she had about a five-minute issue with some speech problems and difficulty getting words out. Patient was scheduled for a 1 off be at 9:30 this morning. She reports that she hasn't eaten anything since Monday morning which would be 2 days ago. Patient symptoms have completely resolved. S he has no complaints at this time. Patient has mildly upset that the individual with her cannot come back to the ER room. There was never any reports of a focal deficit. Allergies and Home Medications Allergies Coded Allergies: amiodarone (Verified Allergy, Intermediate, LIGHTHEADED, 02/07/20) diltiazem (Verified Allergy, Intermediate, LIGHTHEADED, 02/07/20) flecainide (Verified Allergy, Intermediate, LIGHTHEADED, 02/07/20) adhesive tape (Verified Allergy, Unknown, 02/07/20) clopidogrel (Verified Allergy, Unknown, 02/07/20) diclofenac (Unverified Allergy, Unknown, 02/07/20) fludrocortisone (Verified Allergy, Unknown, 02/07/20) gluten (Verified Allergy, Unknown, 02/07/20) oxycodone (Verified Allergy, Unknown, Pt has received Lortab w/o issue, 02/07/20) tramadol (Unverified Allergy, Unknown, 02/07/20) SEVERE ITCHING Home Medications Apixaban 5 Mg Tablet, 5 MG PO BID, (Reported) Ca Carb & Gluc/Mag Ox & Gluc 1 Each Tablet, 1 EACH PO DAILY, (Reported) Cholecalciferol (Vitamin D3) 50 Mcg Capsule, 50 MCG PO DAILY, (Reported) Disopyramide Phosphate 100 Mg Capsule, 100 MG PO BID, (Reported) med is prescribed TID but pt only takes BID Ferrous Sulfate, Dried 160 Mg Tablet.er, 65 MG PO DAILY, (Reported) Fexofenadine HCl 180 Mg Tablet, 180 MG PO DAILY, (Reported) Folic Acid 0.8 Mg Capsule, 0.8 MG PO DAILY, (Reported) Glucosa Olivera 2Kcl/Chondroitin Olivera 1 Each Capsule, 1 EACH PO BID, (Reported) Lactobacillus Combo No.11 1 Each Cap.sprink, 1 EACH PO DAILY, (Reported) Niacin (Inositol Niacinate) Unknown Strength Capsule, 800 MCG PO DAILY, (Reported) Pantoprazole Sodium 40 Mg Tablet.dr, 40 MG PO DAILY, (Reported) Phytonadione 100 Mcg Tablet, 100 MCG PO DAILY, (Reported) Potassium Gluconate 99 Mg Tablet, 99 MG PO DAILY, (Reported) Ubidecarenone 400 Mg Capsule, 400 MG PO DAILY, (Reported) Vitamin E Mixed 400 Unit Capsule, 400 UNIT PO DAILY, (Reported) Zinc Gluconate 50 Mg Tablet, 50 MG PO DAILY, (Reported) Patient Home Medication List Home Medication List Reviewed: Yes Review of Systems Review of Systems Constitutional: No chills, No fever Respiratory: No cough, No short of breath Cardiovascular: No chest pain, No palpitations Gastrointestinal: No abdominal pain, No nausea, No vomiting Musculoskeletal: no symptoms reported Skin: no symptoms reported Psychiatric/Neurological: See HPI Past Mdlwweg-Hbkmes-Dbwxta Hx Past Med/Social Hx: Reviewed Nursing Past Med/Soc Hx Patient Social History 2nd Hand Smoke Exposure: No Recent Foreign Travel: No Contact w/Someone Who Travel: No Recent Hopitalizations: No Immunizations Up To Date Tetanus Booster (TDap): Less than 5yrs Date of Pneumonia Vaccine: Apr 15, 2019 Date of Influenza Vaccine: Apr 15, 2019 Seasonal Allergies Seasonal Allergies: Yes Past Medical History Surgeries: Yes (BOTH FEET, SHOULDER SX x2, MOLES REMOVED, COLON RESECT, PORT, L RCR) Section, Gallbladder, Joint Replacement, Oophorectomy, Orthopedic Respiratory: Yes COPD Cardiac: Yes (REVEAL LOOP RECORDER) Atrial Fibrillation, Hypertension, Irregular Heartbeat Neurological: Yes (STROKE x2 IN 2011, ONE IN OCTOBER AND ONE IN NOVEMBER) Stroke Reproductive Disorders: 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 Sexually Transmitted Disease: No HIV/AIDS: No Genitourinary: No Gastrointestinal: Yes (CELIAC DISEASE, HX COLON RESECTION FOR CA, LOW FUNCTIONING PANCREAS) Chronic Constipation Musculoskeletal: Yes (OSTEOARTHRITIS) Arthritis, Chronic Back Pain Endocrine: No HEENT: Yes (GLASSES) Cataract Loss of Vision: Denies Hearing Impairment: Hard of Hearing, Bilateral Hearing Aide Cancer: Yes Colon Did You Recieve Any Treatments: Yes What Type of Treatment Did You: Chemotherapy, Surgical Intervention Psychosocial: No Integumentary: No 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 0.0oz. 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 Norm as Tested Skin: Normal Color, Warm/Dry Procedures/Interventions Suture Size: 5-0 Progress/Results/Core Measures Suspected Sepsis SIRS Temperature: Pulse: Respiratory Rate: Laboratory Tests 02/10/20 09:53: White Blood Count 10.2 Blood Pressure / Mean: Laboratory Tests 02/10/20 09:53: Creatinine 1.30, INR Comment 1.1, Platelet Count 192, Total Bilirubin 0.8 Results/Orders Lab Results Laboratory Tests Test 02/10/20 09:52 02/10/20 09:53 Range/Units Glucometer 107 70-110 MG/DL White Blood Count 10.2 4.3-11.0 10^3/uL Red Blood Count 4.12 L 4.35-5.85 10^6/uL Hemoglobin 12.7 11.5-16.0 G/DL Hematocrit 37 35-52 % Mean Corpuscular Volume 91 80-99 FL Mean Corpuscular Hemoglobin 31 25-34 PG Mean Corpuscular Hemoglobin Concent 34 32-36 G/DL Red Cell Distribution Width 13.2 10.0-14.5 % Platelet Count 192 130-400 10^3/uL Mean Platelet Volume 10.3 7.4-10.4 FL Neutrophils (%) (Auto) 73 42-75 % Lymphocytes (%) (Auto) 15 12-44 % Monocytes (%) (Auto) 9 0-12 % Eosinophils (%) (Auto) 3 0-10 % Basophils (%) (Auto) 0 0-10 % Neutrophils # (Auto) 7.4 1.8-7.8 X 10^3 Lymphocytes # (Auto) 1.5 1.0-4.0 X 10^3 Monocytes # (Auto) 0.9 0.0-1.0 X 10^3 Eosinophils # (Auto) 0.3 0.0-0.3 10^3/uL Basophils # (Auto) 0.0 0.0-0.1 10^3/uL Prothrombin Time 14.1 12.2-14.7 SEC INR Comment 1.1 0.8-1.4 Activated Partial Thromboplast Time 36 H 24-35 SEC Sodium Level 130 L 135-145 MMOL/L Potassium Level 4.0 3.6-5.0 MMOL/L Chloride Level 97 L 98-107 MMOL/L Carbon Dioxide Level 23 21-32 MMOL/L Anion Gap 10 5-14 MMOL/L Blood Urea Nitrogen 19 H 7-18 MG/DL Creatinine 1.30 0.60-1.30 MG/DL Estimat Glomerular Filtration Rate 39 BUN/Creatinine Ratio 15 Glucose Level 104 70-105 MG/DL Calcium Level 9.1 8.5-10.1 MG/DL Corrected Calcium 9.1 8.5-10.1 MG/DL Total Bilirubin 0.8 0.1-1.0 MG/DL Aspartate Amino Transf (AST/SGOT) 24 5-34 U/L Alanine Aminotransferase (ALT/SGPT) 13 0-55 U/L Alkaline Phosphatase 68 40-136 U/L Troponin I < 0.028 <0.028 NG/ML Total Protein 7.2 6.4-8.2 GM/DL Albumin 4.0 3.2-4.5 GM/DL My Orders Orders - SAEZ,POLINA L DO Cbc With Automated Diff (02/10/20 09:54) Protime With Inr (02/10/20 09:54) Partial Thromboplastin Time (02/10/20 09:54) Comprehensive Metabolic Panel (02/10/20 09:54) Troponin I (02/10/20 09:54) Ua Culture If Indicated (02/10/20 09:54) Chest 1 View, Ap/Pa Only (02/10/20 09:54) Ekg Tracing (02/10/20 09:54) Nothing By Mouth (02/10/20 Lunch) Accucheck Stat ONCE (02/10/20 09:54) Ed Iv/Invasive Line Start (02/10/20 09:54) Vital Signs Stroke Patient Q15M (02/10/20 09:54) Ct Head Wo-R/O Stroke (02/10/20 09:54) Monitor-Rhythm Ecg Trace Only (02/10/20 09:54) Dysphagia Screening Tool (02/10/20 09:54) Lipid Panel (02/11/20 06:00) Vital Signs/I&O 02/10/20 09:41 Temp 36.2 Pulse 74 Resp 12 B/P (MAP) 163/108 (126) Pulse Ox 99 O2 Delivery Room Air Capillary Refill : Progress Note : Progress Note Patient's symptoms are consistent with either a vasovagal sponsor possibly a episode of low blood sugar. Based on her history of not eating anything for 2 days and nothing to drink since late yesterday due to her schedule colonoscopy this morning. Patient with no focal deficits or symptoms and signs consistent with an acute stroke or TIA. Patient is stable and will be discharged home. She should follow-up with her primary care provider as needed and with Dr. Vora as needed. Departure Impression Primary Impression: Vasovagal reaction Disposition: 01 HOME, SELF-CARE Condition: Stable Departure-Patient Inst. Referrals: TONY TURNER DO (PCP/Family) Primary Care Physician Patient Instructions: Vasovagal Response Add. Discharge Instructions: Follow-up with your primary care provider as needed All discharge instructions reviewed with patient and/or family. Voiced understanding. POLINA SAEZ DO Feb 10, 2020 09:53
[2020-02-10 10:01] LABS: BASOPHILS % (AUTO) 0 % (0-10); EOSINOPHILS # (AUTO) 0.3 10^3/uL (0.0-0.3); EOSINOPHILS % (AUTO) 3 % (0-10); HEMATOCRIT 37 % (35-52); HEMOGLOBIN 12.7 G/DL (11.5-16.0); LYMPHOCYTES # (AUTO) 1.5 X 10^3 (1.0-4.0); LYMPHOCYTES % (AUTO) 15 % (12-44); MEAN CORPUSCULAR HEMOGLOBIN 31 PG (25-34); MEAN CORPUSCULAR HGB CONC 34 G/DL (32-36); MEAN CORPUSCULAR VOLUME 91 FL (80-99); MEAN PLATELET VOLUME 10.3 FL (7.4-10.4); MONOCYTES # (AUTO) 0.9 X 10^3 (0.0-1.0); MONOCYTES % (AUTO) 9 % (0-12); NEUTROPHILS # (AUTO) 7.4 X 10^3 (1.8-7.8); NEUTROPHILS % (AUTO) 73 % (42-75); PLATELET COUNT 192 10^3/uL (130-400); RED CELL DISTRIBUTION WIDTH 13.2 % (10.0-14.5); WHITE BLOOD COUNT 10.2 10^3/uL (4.3-11.0)
[2020-02-10 10:10] LABS: INR 1.1 (0.8-1.4); PROTHROMBIN TIME PATIENT 14.1 SEC (12.2-14.7)
[2020-02-10 10:12] LABS: CHLORIDE 97 MMOL/L (98-107); SODIUM 130 MMOL/L (135-145)
[2020-02-10 10:13] LABS: CALCIUM 9.1 MG/DL (8.5-10.1)
[2020-02-10 10:14] LABS: GLUCOSE 104 MG/DL (70-105); TOTAL PROTEIN 7.2 GM/DL (6.4-8.2)
--- NOTE | 2020-02-10 10:14 | NUR ---
Spoke with pt's friend, Paul, regarding plan of care for pt.
[2020-02-10 10:15] LABS: CARBON DIOXIDE 23 MMOL/L (21-32)
[2020-02-10 10:16] LABS: BILIRUBIN,TOTAL 0.8 MG/DL (0.1-1.0)
[2020-02-10 10:18] LABS: ALKALINE PHOSPHATASE 68 U/L (40-136); GFR ESTIMATED 39
[2020-02-10 10:19] LABS: BUN/CREATININE RATIO 15
[2020-02-10 10:21] LABS: ALANINE AMINOTRANSFERASE 13 U/L (0-55)
--- NOTE | 2020-02-10 10:26 | Diagnostic Imaging Report ---
PROCEDURE: CT head wo r/o stroke. TECHNIQUE: Multiple contiguous axial images were obtained through the brain without the use of intravenous contrast. Auto Exposure Controls were utilized during the CT exam to meet ALARA standards for radiation dose reduction. INDICATION: Weakness and stroke-like symptoms. COMPARISON: Correlation is made with prior head CT from 11/10/2015. FINDINGS: Ventricles and sulci are appropriate for the patient's age. Moderate periventricular hypodensity is noted consistent with senescent change. No sulcal effacement or midline shift is identified. No acute intra-axial or extra-axial hemorrhage is detected. Cisterns are patent. Visualized paranasal sinuses are clear. IMPRESSION: Senescent changes. No acute intracranial process is detected. Dictated by: Dictated on workstation # [id number]
--- NOTE | 2020-02-10 10:26 | NUR ---
Spoke with pt's daughter via phone. Pt on phone with daughter now.
--- NOTE | 2020-02-10 10:31 | Diagnostic Imaging Report ---
INDICATION: Stroke-like symptoms and weakness. TIME OF EXAM: 10:07 AM. COMPARISON: 05/21/2018. FINDINGS: The left chest wall port has its tip at the SVC/right atrial junction. A cardiac monitoring device overlies the left lung base. The lungs are clear. No infiltrates are seen. There is no effusion or pneumothorax. IMPRESSION: No acute cardiopulmonary process is detected. Dictated by: Dictated on workstation # [id number]
--- NOTE | 2020-02-10 10:42 | NUR ---
Spoke with Gene regarding discharge plan.
--- NOTE | 2020-02-10 10:45 | NUR ---
Spoke to pt's daughter re:discharge plan.
[2020-02-10 10:50] VITALS: BP 159/68
--- NOTE | 2020-02-10 10:50 | NUR ---
Spoke with Endo and pt can be seen for procedures today.
--- NOTE | 2020-02-10 10:58 | NUR ---
Called Gene and informed Gene to wait for pt at day surg area.
== END 2020-02-10 10:50 | disposition home or self-care (01) ==
LOC: EDUNIT# 09:41 → ER 09:42
DX: R55 Syncope and collapse (principal); J44.9 Chronic obstructive pulmonary disease, unspecified; I48.91 Unspecified atrial fibrillation; I10 Essential (primary) hypertension; Z86.73 Personal history of transient ischemic attack (TIA), and cerebral infarction without residual deficits
CPT/HCPCS: 36415; 70450; 71045; 80053; 82962; 84484; 85025; 85610; 85730; 93005; 93041

== ENCOUNTER 2020-02-10 11:09 | Day surgery (SDC) | payer MEDICARE, OTHER ==
[~2020-02-10] VITALS: Ht 147 cm; Wt 60.3 kg
[2020-02-10] MEDS ORDERED: LACTATED RINGERS 1,000 ML IV STA (11:11)
[2020-02-10] MEDS ORDERED: HURRICAINE EXT TUBE (BENZOCAINE) XX PRN (11:15)
--- NOTE | 2020-02-10 11:18 | Progress Note-Pre Operative ---
Pre-Operative Progress Note H&P Reviewed The H&P was reviewed, patient examined and no changes noted. Time Seen by Provider: 11:17 Date H&P Reviewed: Feb 10, 2020 Time H&P Reviewed: 11:17 Pre-Operative Diagnosis: Melena, Abd pain, diarrhea, change in bowel habits ULISES WARD DO Feb 10, 2020 11:18
[2020-02-10] MEDS ORDERED: LACTATED RINGERS 1,000 ML IV ONE (11:19)
[2020-02-10 11:20] VITALS: BP 186/93
[2020-02-10] MEDS ORDERED: MIDAZOLAM 2 MG/2 ML (VERSED) VIAL ONE (11:28)
[2020-02-10] MEDS ORDERED: PROPOFOL INJECTION 0 ML IV ONE (11:43)
[2020-02-10 12:15] VITALS: BP 151/67
--- NOTE | 2020-02-10 12:17 | Progress Note-Post Operative ---
Post-Operative Progess Note Surgeon (s)/Establishment Guide (s) Surgeon ULISES WARD DO Establishment Guide: OLINDA Mason Pre-Operative Diagnosis Melena, Abd pain, diarrhea, change in bowel habits Post-Operative Diagnosis Gastritis Hiatal Hernia polyps internal hemorrhoids Procedure & Operative Findings Date of Procedure 02/10/20 Procedure Performed/Findings EGD with bx Colon with snare Colon with hot bx Anesthesia Type IV sedation by PHOTOGRAPHIC HAND DEVELOPER Estimated Blood Loss Estimated blood loss (mL): scant Specimens/Packing Specimens Removed antral bx GE jxn bx Proximal colon near anastomosis polyp desc colon polyp ULISES WARD DO Feb 10, 2020 12:17
--- NOTE | 2020-02-10 12:19 | Endoscopy Discharge Instruct ---
Endo Procedure/Findings Findings 1.: Gastritis 2.: Hiatal Hernia 3.: Polyp 4.: Internal Hemorrhoids Discharge Instructions - Activity: You might feel a little sleepy until tomorrow. This is due to the medicine you received to relax you. Until tomorrow, you should: NOT drive a car, operate machinery or power tools. NOT drink any alcoholic beverages. NOT make any important decisions or sign importortant papers. Do not return to work until tomorrow, unless otherwise instructed. Resume previous activities tomorrow. Diet: Start by taking liquids. If you tolerate liquids, advance to solid food. make an appointment for one week Notify Physician - If you experience excessive bleeding, unusual abdominal pain, fever, or chest pain, contact your doctor immediately. ULISES WARD DO Feb 10, 2020 12:19
[2020-02-10 12:20] VITALS: BP 146/61
--- NOTE | 2020-02-10 12:47 | Anesthesia-General Post-Op ---
MAC Patient Condition Mental Status/LOC: Same as Preop Cardiovascular: Satisfactory Nausea/Vomiting: Absent Respiratory: Satisfactory Pain: Controlled Complications: Absent Post Op Complications Complications None Follow Up Care/Instructions Patient Instructions None needed. Anesthesiology Discharge Order Discharge Order Patient is doing well, no complaints, stable vital signs, no apparent adverse anesthesia problems. No complications reported per nursing. FAHEEM CARDONA CRNA Feb 10, 2020 12:47
[2020-02-10 13:00] VITALS: BP 172/55
[2020-02-10 13:29] VITALS: BP 172/55
--- NOTE | 2020-02-11 07:07 | OPERATIVE REPORT ---
DATE OF SERVICE: PREOPERATIVE DIAGNOSES: Diarrhea, change in bowel habits, melena, and history of colon cancer. POSTOPERATIVE DIAGNOSES: Gastritis, hiatal hernia, colon polyps and internal hemorrhoids. PROCEDURES: 1. EGD with biopsy. 2. Colonoscopy with snare. 3. Colonoscopy with hot biopsy. SURGEON: Johnnie Vora DO DIRECTOR FACILITIES MAINTENANCE: Surinder Sandoval, MS3. SPECIMEN: Biopsy of the antrum, biopsy of the GE junction, 2 polyps from the proximal colon and 1 polyp from the descending colon. BLOOD LOSS: Scant. FLUIDS: Per anesthesia. POSTOPERATIVE CONDITION: Stable. INDICATION FOR PROCEDURE: The patient is an 84-year-old female, who has been having some diarrhea. She had a change in bowel habits and melena. She has a history of colon cancer, needs a workup. FINDINGS: The patient had some mild gastritis. She had a hiatal hernia and then actually had a gastric polyp in the colon, she had some polyps in the proximal portion of the colon right near the anastomosis and then what was probably the descending colon, saw another larger polyp. PROCEDURE NOTE: After informed consent was obtained, the patient was brought to the endoscopy suite, placed in bed in left lateral decubitus position. She was administered IV sedation by the DIRECTOR OF CONSTRUCTION who then monitored her vitals the entire time, heart rate, blood pressure and pulse ox, started with the EGD, placing scope down the mouth through the esophagus and into the stomach, noted some mild gastritis, pushed into the duodenum. Duodenum looked fine. Pulled back and did a biopsy of the antrum. Retroflexed the scope, saw small hiatal hernia, took a picture of this and then pulled the scope up into the GE junction, did a biopsy, pushed the scope back in, noted a gastric polyp, took a picture and then suctioned out the air out of the stomach, pulled the scope up the esophagus and out the mouth. Switched camera, switched gloves, went down below, started the colonoscopy, pushed in and pushed to about 140 cm, very floppy colon, but able to get to the anastomosis, took a picture and then right near the anastomosis in the colon side saw two flat polyps, I elected to do hot biopsy of these, able to get them completely and then slowly withdrew the scope insufflating to look circumferentially at the wall and coming down in the descending colon, noted a larger polyp, but this was too big to do a biopsy, wanted to remove all of the polyp, so used a hot snare to remove this, able to suction this up to the scope and then continued down through the sigmoid into the rectum, retroflexed in rectal vault, saw some minimal internal hemorrhoids, took a picture and then removed the scope. The patient tolerated the procedure. She was recovered in endoscopy suite. Job ID: [id number] DocumentID: [id number] Dictated Date: 02/10/2020 19:23:12 Vending Technician Date: 02/11/2020 06:08:40 Dictated By: DO EVELYN RIVERA
== END 2020-02-10 13:29 | disposition home or self-care (01) ==
LOC: ENDO 11:09
PROVIDERS: ATTEND Surgery
DX: D12.4 Benign neoplasm of descending colon (principal); D12.6 Benign neoplasm of colon, unspecified; K64.8 Other hemorrhoids; K29.70 Gastritis, unspecified, without bleeding; K44.9 Diaphragmatic hernia without obstruction or gangrene; Z85.038 Personal history of other malignant neoplasm of large intestine; Z86.010 Personal history of colon polyps; Z86.73 Personal history of transient ischemic attack (TIA), and cerebral infarction without residual deficits; Z96.659 Presence of unspecified artificial knee joint; I10 Essential (primary) hypertension; I48.91 Unspecified atrial fibrillation; J44.9 Chronic obstructive pulmonary disease, unspecified; M06.9 Rheumatoid arthritis, unspecified; M54.9 Dorsalgia, unspecified; G89.29 Other chronic pain; K90.0 Celiac disease; Z88.5 Allergy status to narcotic agent; Z91.048 Other nonmedicinal substance allergy status; Z88.8 Allergy status to other drugs, medicaments and biological substances; Z79.899 Other long term (current) drug therapy; Z79.01 Long term (current) use of anticoagulants
CPT/HCPCS: 88305

== ENCOUNTER 2020-05-29 10:21 | Outpatient (RCR) | payer MEDICARE, OTHER ==
[2020-04-08 12:50] VITALS: BP 130/77
[2020-05-08 12:30] VITALS: BP 154/79
[~2020-05-29] VITALS: Ht 147 cm; Wt 60500.0 kg
[~2020-05-29 10:21] MED LIST changes: -AMIO200T4 PO; +AMIO200T6 PO; +AMLO-250 PO; -AMLO5TAB9 PO
[2020-05-29 10:30] VITALS: BP 124/64
== END 2020-05-29 10:40 | disposition home or self-care (01) ==
LOC: SDC 10:21
PROVIDERS: ATTEND Nurse Practitioner Family
DX: Z45.2 Encounter for adjustment and management of vascular access device (principal)
CPT/HCPCS: 96523

== ENCOUNTER 2020-09-14 11:03 | Outpatient (RCR) | payer MEDICARE, OTHER ==
[2020-07-07 11:40] VITALS: BP 89/68
[~2020-09-14] VITALS: Ht 152 cm; Wt 60.0 kg
[2020-09-14 11:00] VITALS: BP 162/81
== END 2020-10-05 | disposition home or self-care (01) ==
LOC: SDC 11:03
PROVIDERS: ATTEND Internal Medicine
DX: Z45.2 Encounter for adjustment and management of vascular access device (principal)
CPT/HCPCS: 96523

== ENCOUNTER 2020-11-04 09:30 | Outpatient (RCR) | payer MEDICARE, OTHER | END 2021-02-02 | LOC: CARD 09:30 | PROVIDERS: ATTEND Internal Medicine | DX: R55 Syncope and collapse (principal) ==

== ENCOUNTER 2020-12-21 10:56 | Outpatient (RCR) | payer MEDICARE, OTHER ==
[2020-10-12 12:30] VITALS: BP 170/85
[2020-11-16 13:05] VITALS: BP 162/87
[~2020-12-21] VITALS: Ht 152 cm; Wt 60.0 kg
[2020-12-21 10:55] VITALS: BP 131/53
== END 2020-12-21 11:20 | disposition home or self-care (01) ==
LOC: SDC 10:56
PROVIDERS: ATTEND Internal Medicine
DX: Z45.2 Encounter for adjustment and management of vascular access device (principal)
CPT/HCPCS: 96523

== ENCOUNTER → 2021-02-23 | Outpatient (CLI) | payer MEDICARE, OTHER ==
--- NOTE | 2021-02-23 13:35 | Diagnostic Imaging Report ---
INDICATION: Dizziness. Fall with trauma to the head. Loss of consciousness TECHNIQUE: Routine non contrast-enhanced axial images were obtained from the skull base to the vertex. Auto Exposure Controls were utilized during the CT exam to meet ALARA standards for radiation dose reduction COMPARISON: 02/10/2020. FINDINGS: The ventricles and cortical sulci are diffusely prominent, compatible with age-related volume loss. There are confluent areas of abnormal, low attenuation in the periventricular white matter. This is consistent with chronic small vessel ischemic changes. There is no midline shift or mass-effect. No acute intra-axial hemorrhage is seen. There are no abnormal areas of increased or decreased density to suggest acute hemorrhage or edema. No extra-axial masses or collections are present. The bony calvarium is intact. The visualized paranasal sinuses are unremarkable. The mastoid air cells are clear. IMPRESSION: 1. No acute intracranial abnormality. No CT evidence of mass, acute infarct or intracranial hemorrhage. 2. Chronic small vessel ischemic changes in the deep white matter. Dictated by: Dictated on workstation # [id number]
== END ==
LOC: RAD 13:00
PROVIDERS: ATTEND Nurse Practitioner Family
DX: I67.82 Cerebral ischemia (principal); S06.9X9A Unspecified intracranial injury with loss of consciousness of unspecified duration, initial encounter; I95.89 Other hypotension; S01.411A Laceration without foreign body of right cheek and temporomandibular area, initial encounter; I10 Essential (primary) hypertension; K21.9 Gastro-esophageal reflux disease without esophagitis; E78.5 Hyperlipidemia, unspecified; C18.9 Malignant neoplasm of colon, unspecified; I63.89 Other cerebral infarction; M13.80 Other specified arthritis, unspecified site; W18.39XA Other fall on same level, initial encounter
CPT/HCPCS: 70450

== ENCOUNTER 2021-02-27 09:33 | Emergency (ER) | payer MEDICARE, OTHER ==
[~2021-02-27] VITALS: Ht 154 cm; Wt 62.5 kg
--- NOTE | 2021-02-27 09:59 | ED Fall/Injury ---
General Chief Complaint: Cardiac/General Problems Stated Complaint: FALL Source: patient, EMS Exam Limitations: no limitations History of Present Illness Date Seen by Provider: Feb 27, 2021 Time Seen by Provider: 09:34 Initial Comments Patient to the ER by EMS from home with chief complaint she had a fall about half an hour prior to arrival. She was not down for more than a few minutes before getting to her phone and calling for help. She says for the past 4 to 5 days she been having increasing falls. She landed on her hand and had to get several stitches in her left hand but is not sure where she went to go get that. She says she did not go to the ER. She did not have a scan of her head. She says at that time she passed out and fell. Today however she says she just felt like falling would be a good idea and fell and denies tripping over anything nor syncope or loss of consciousness. She says she struck her head 4 days ago but not today. She is on Eliquis with a history of atrial fibrillation and 2 strokes in 2011. She denies a history of heart disease or heart valves. She denies a history of chest pain nausea vomiting fever chills cough or shortness of air. No dysuria or diarrhea. She denies any pain anywhere else other than her old injuries. Primary care by Dr. Eagle and cardiology through [facility]. Allergies and Home Medications Allergies Coded Allergies: amiodarone (Verified Allergy, Intermediate, LIGHTHEADED, 02/07/20) diltiazem (Verified Allergy, Intermediate, LIGHTHEADED, 02/07/20) flecainide (Verified Allergy, Intermediate, LIGHTHEADED, 02/07/20) adhesive tape (Verified Allergy, Unknown, 02/07/20) clopidogrel (Verified Allergy, Unknown, 02/07/20) diclofenac (Unverified Allergy, Unknown, 02/07/20) fludrocortisone (Verified Allergy, Unknown, 02/07/20) gluten (Verified Allergy, Unknown, 02/07/20) oxycodone (Verified Allergy, Unknown, Pt has received Lortab w/o issue, 02/07/20) tramadol (Unverified Allergy, Unknown, 02/07/20) SEVERE ITCHING Home Medications Apixaban 5 Mg Tablet, 5 MG PO BID, (Reported) Ca Carb & Gluc/Mag Ox & Gluc 1 Each Tablet, 1 EACH PO DAILY, (Reported) Cholecalciferol (Vitamin D3) 50 Mcg Capsule, 50 MCG PO DAILY, (Reported) Disopyramide Phosphate 100 Mg Capsule, 100 MG PO BID, (Reported) med is prescribed TID but pt only takes BID Ferrous Sulfate, Dried 160 Mg Tablet.er, 65 MG PO DAILY, (Reported) Fexofenadine HCl 180 Mg Tablet, 180 MG PO DAILY, (Reported) Folic Acid 0.8 Mg Capsule, 0.8 MG PO DAILY, (Reported) Glucosa Olivera 2Kcl/Chondroitin Olivera 1 Each Capsule, 1 EACH PO BID, (Reported) Lactobacillus Combo No.11 1 Each Cap.sprink, 1 EACH PO DAILY, (Reported) Niacin (Inositol Niacinate) Unknown Strength Capsule, 800 MCG PO DAILY, (Repor elisabeth) Pantoprazole Sodium 40 Mg Tablet.dr, 40 MG PO DAILY, (Reported) Phytonadione 100 Mcg Tablet, 100 MCG PO DAILY, (Reported) Potassium Gluconate 99 Mg Tablet, 99 MG PO DAILY, (Reported) Ubidecarenone 400 Mg Capsule, 400 MG PO DAILY, (Reported) Vitamin E Mixed 400 Unit Capsule, 400 UNIT PO DAILY, (Reported) Zinc Gluconate 50 Mg Tablet, 50 MG PO DAILY, (Reported) Patient Home Medication List Home Medication List Reviewed: Yes Review of Systems Review of Systems Constitutional: No chills, No diaphoresis Eyes: Denies Blindness, Denies Blurred Vision Ears, Nose, Mouth, Throat: denies ear pain, denies nose pain Respiratory: No cough, No phlegm Cardiovascular: No chest pain, No edema Gastrointestinal: No abdominal pain, No constipation, No diarrhea Genitourinary: No discharge, No dysuria : Yes Musculoskeletal: see HPI; No back pain, No joint pain Skin: other (Old abrasions on the right side of her face and wrapped stitches on the dorsum of her left hand.) All Other Systems Reviewed Negative Unless Noted: Yes Past Zrelopr-Zwbpvd-Rotywp Hx Patient Social History Tobacco Use?: No Use of E-Cig and/or Vaping dev: No Immunizations Up To Date Tetanus Booster (TDap): Less than 5yrs Seasonal Allergies Seasonal Allergies: Yes Past Medical History Surgeries: Yes (BOTH FEET, SHOULDER SX x2, MOLES REMOVED, COLON RESECT, PORT, L RCR) Section, Gallbladder, Joint Replacement, Oophorectomy, Orthopedic Respiratory: Yes COPD Cardiac: Yes (REVEAL LOOP RECORDER) Atrial Fibrillation, Hypertension, Irregular Heartbeat Neurological: Yes (STROKE x2 IN 2011, ONE IN OCTOBER AND ONE IN NOVEMBER) Stroke Reproductive Disorders: No DIRECTOR CLINICAL RESEARCH History: Menopausal Sexually Transmitted Disease: No HIV/AIDS: No Genitourinary: No Gastrointestinal: Yes (CELIAC DISEASE, HX COLON RESECTION FOR CA, LOW FUNCTIONING PANCREAS) Chronic Constipation Musculoskeletal: Yes (OSTEOARTHRITIS) Arthritis, Chronic Back Pain Endocrine: No HEENT: Yes (GLASSES) Cataract Loss of Vision: Denies Hearing Impairment: Hard of Hearing, Bilateral Hearing Aide Cancer: Yes Colon Did You Recieve Any Treatments: Yes What Type of Treatment Did You: Chemotherapy, Surgical Intervention Psychosocial: No Integumentary: No 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 0.0oz. [id number]; 27.90 BMI Method:Stated General Appearance: WD/WN, mild distress HEENT: PERRL/EOMI, pharynx normal Neck: full range of motion, normal inspection Cardiovascular: normal peripheral pulses, tachycardia (120-150), irregularly irregular Respiratory: lungs clear, normal breath sounds, no respiratory distress, no accessory muscle use Peripheral Pulses: 2+ Radial Pulses (R), 2+ Radial Pulses (L) Gastrointestinal: normal bowel sounds, non tender, soft Extremities: normal range of motion, normal inspection, normal capillary refill Neurologic/Psychiatric: alert, normal mood/affect, oriented x 3 Skin: normal color, warm/dry, other (1/2 x 2 cm old healing abrasions to the right judaism region and wrapped sutures over the dorsum on the left hand) Almond Coma Score Best Eye Response: (4) Open Spontaneously Best Verbal Response: (5) Oriented Best Motor Response: (6) Obeys Commands Audrey Total: 15 Procedures/Interventions Suture Size: 5-0 Progress/Results/Core Measures Results/Orders Lab Results Laboratory Tests Test 02/27/21 09:55 Range/Units White Blood Count 5.3 4.3-11.0 10^3/uL Red Blood Count 4.02 3.80-5.11 10^6/uL Hemoglobin 12.3 11.5-16.0 g/dL Hematocrit 37 35-52 % Mean Corpuscular Volume 93 80-99 fL Mean Corpuscular Hemoglobin 31 25-34 pg Mean Corpuscular Hemoglobin Concent 33 32-36 g/dL Red Cell Distribution Width 13.2 10.0-14.5 % Platelet Count 141 130-400 10^3/uL Mean Platelet Volume 10.9 9.0-12.2 fL Immature Granulocyte % (Auto) 0 % Neutrophils (%) (Auto) 68 42-75 % Lymphocytes (%) (Auto) 21 12-44 % Monocytes (%) (Auto) 9 0-12 % Eosinophils (%) (Auto) 1 0-10 % Basophils (%) (Auto) 0 0-10 % Neutrophils # (Auto) 3.7 1.8-7.8 10^3/uL Lymphocytes # (Auto) 1.1 1.0-4.0 10^3/uL Monocytes # (Auto) 0.5 0.0-1.0 10^3/uL Eosinophils # (Auto) 0.0 0.0-0.3 10^3/uL Basophils # (Auto) 0.0 0.0-0.1 10^3/uL Immature Granulocyte # (Auto) 0.0 0.0-0.1 10^3/uL Percent Immature Platelet Fraction 4.9 0.0-7.6 % Sodium Level 133 L 135-145 MMOL/L Potassium Level 4.0 3.6-5.0 MMOL/L Chloride Level 102 98-107 MMOL/L Carbon Dioxide Level 20 L 21-32 MMOL/L Anion Gap 11 5-14 MMOL/L Blood Urea Nitrogen 27 H 7-18 MG/DL Creatinine 1.25 0.60-1.30 MG/DL Estimat Glomerular Filtration Rate 41 BUN/Creatinine Ratio 22 Glucose Level 119 H 70-105 MG/DL Calcium Level 8.8 8.5-10.1 MG/DL Corrected Calcium 9.1 8.5-10.1 MG/DL Total Bilirubin 0.3 0.1-1.0 MG/DL Aspartate Amino Transf (AST/SGOT) 28 5-34 U/L Alanine Aminotransferase (ALT/SGPT) 12 0-55 U/L Alkaline Phosphatase 47 40-136 U/L Troponin I 0.041 H <0.028 NG/ML C-Reactive Protein High Sensitivity 0.71 H 0.00-0.50 MG/DL Total Protein 6.7 6.4-8.2 GM/DL Albumin 3.6 3.2-4.5 GM/DL Serum Alcohol < 10 <10 MG/DL My Orders Orders - LILIANA MICHAEL Ct Head/Cervical Spine Wo (02/27/21 09:50) Chest 1 View, Ap/Pa Only (02/27/21 09:50) Cbc With Automated Diff (02/27/21 09:50) Comprehensive Metabolic Panel (02/27/21 09:50) Hs C Reactive Protein (02/27/21 09:50) Ua Culture If Indicated (02/27/21 09:50) Alcohol (02/27/21 09:50) Drug Screen Stat (Urine) (02/27/21 09:50) Ekg Tracing (02/27/21 09:50) Continuous Ekg Monitoring (02/27/21 09:50) Ed Iv/Invasive Line Start (02/27/21 09:50) Ns Iv 1000 Ml (Sodium Chloride 0.9%) (02/27/21 10:00) Metoprolol Tartrate Injection (Lopressor (02/27/21 10:00) Troponin I (02/27/21 10:02) Pelvis/Zari Hips 3-4 Views (02/27/21 10:12) Medications Given in ED Current Medications Medications Dose Ordered Sig/Lora Route Start Time Stop Time Status Last Admin Dose Admin Metoprolol Tartrate 5 mg ONCE ONCE IV 02/27/21 10:00 02/27/21 10:01 DC 02/27/21 10:14 5 MG Vital Signs/I&O 02/27/21 09:35 Temp 36.6 Pulse 120 Resp 28 B/P (MAP) 130/83 (99) Pulse Ox 97 Progress Progress Note #1: Time: 09:58 Progress Note Patient is having some tenderness to palpation over both hips and is unclear whether this is new or not. She is a very difficult historian and although she is oriented, she is a little slowed in her mentation. Clinically she appears to be a little dry and is in atrial fibrillation with rapid ventricular response so since she has a stated allergy to amiodarone and Cardizem are going to try 5 of metoprolol and some IV fluids 1 L. Will check labs and urine. Progress Note #2: Time: 12:14 Progress Note After dose of metoprolol the patient's blood pressure stayed good but her heart rate went down to the 80-90 range still in a atrial fibrillation. She is not having any symptoms now. Her heart rates back up to the 90s to 110 range. She has declined staying in the hospital. She is not on a beta-whit so we may try her on some metoprolol at home and have her follow-up with Dr. Klein her software asset management analyst. Initial ECG Impression Date: Feb 27, 2021 Initial ECG Impression Time: 09:59 Initial ECG Rate: 151 Initial ECG Rhythm: A Fib/Flutter Initial ECG Intervals: QT (529) Initial ECG Impression: Atrial Fibrillation w/RVR Comment Atrial fibrillation with rapid ventricular response and no clinically relevant ST changes. Diagnostic Imaging Diagonstic Imaging: Xray Plain Films/CT/US/NM/MRI: chest Comments [facility]. [place], [place] NAME: MICA OGLESBY [facility] REC#: [id number] PT STATUS: REG ER : 1935 PHYSICIAN: LILIANA MICHAEL MD ADMIT DATE: 02/27/21/ER Draft Date of Exam:02/27/21 CHEST 1 VIEW, AP/PA ONLY Portable supine chest 11:19. Indication: Fell, chest pain The heart size is within normal limits and stable compared to 02/10/2020. The lungs are generally clear. There is no sign of failure, pneumonia or pleural effusion. There is a linear lucency extending longitudinally through the right lung base. I suspect this is related to a skinfold and not to a pneumothorax. The mediastinum is not widened. The osseous structures are intact. The left-sided central venous catheter and loop recorder device on the left seen previously are again evident and no different. Impression: There is no evidence for acute cardiopulmonary abnormality. Dictated on workstation # [id number] Dict: 02/27/21 1131 Trans: 02/27/21 1139 [facility] [id number] Interpreted by: MELLISSA WOODS MD Electronically signed by: Reviewed: Reviewed by Ct Diagonstic Imaging: Xray Plain Films/CT/US/NM/MRI: hip (zari) Comments [facility], [place] NAME: MICA OGLESBY [facility] REC#: [id number] PT STATUS: REG ER : 1935 PHYSICIAN: LILIANA MICHAEL MD ADMIT DATE: 02/27/21/ER Draft Date of Exam:02/27/21 PELVIS/ZARI HIPS 3-4 VIEWS Pelvis and bilateral hips at 11:23. Indication: Trauma Single AP view of the pelvis and AP and lateral views of both hip joints were obtained. There is no fracture, dislocation or acute bony abnormality. There is at least moderate degenerative disease of both hip joints. The degenerative changes involving the left hip seems similar to the prior exam of 05/13/2017. There is also mild symmetrical sclerosis of the sacroiliac joints. The visualized lower lumbar spine show severe degenerative disc and bone disease at L4-L5 and L5-S1. The soft tissues are unremarkable. Impression: There is no evidence for an acute bony abnormality. Dictated on workstation # [id number] Dict: 02/27/21 1141 Trans: 02/27/21 1151 [facility] [id number] Interpreted by: MELLISSA WOODS MD Electronically signed by: Reviewed: Reviewed by Ct Diagonstic Imaging: CT Plain Films/CT/US/NM/MRI: c-spine, head Comments [facility], [place] NAME: MICA OGLESBY [facility] REC#: [id number] PT STATUS: REG ER : 1935 PHYSICIAN: LILIANA MICHAEL MD ADMIT DATE: 02/27/21/ER Draft Date of Exam:02/27/21 CT HEAD/CERVICAL SPINE WO PROCEDURE: CT head and CT cervical spine without contrast. TECHNIQUE: Multiple contiguous axial images were obtained through the brain and cervical spine without the use of intravenous contrast. Sagittal and coronal reformations through the cervical spine were then performed. Auto Exposure Controls were utilized during the CT exam to meet ALARA standards for radiation dose reduction. INDICATION: Fell, head and neck pain CT HEAD: There is no mass, shift of the midline or hemorrhage to suggest an acute intracranial abnormality. The ventricles are not abnormally dilated, stable in size when compared to the prior exam of 02/23/2021. The senescent changes increased are again evident and different. The bone windows show no evidence for skull fracture or for destructive lesion. However in the interval since the prior exam edema/inflammation of the soft tissues overlying scalp of the left parietal bone near vertex of skull has developed. The orbits are symmetrical and within normal limits. The sinuses where visualized are clear. IMPRESSION: 1. There is no evidence for an acute intracranial abnormality. 2. If clinical concern regarding an underlying abnormality persists, then MRI would be recommended for further study. 3. There is evidence of a soft tissue injury to the scalp overlying the left parietal bone. There is no skull fracture identified however. CT CERVICAL SPINE The reconstructed parasagittal images show severe degenerative disc and bony disease at C2-C3 and C3-4. There also appears to be a block vertebra formation of C5, C6 and C7. This may be a developmental variant. There is no high-grade central stenosis identified however. There is no fracture or acute bony abnormality evident. There is no sign of retropharyngeal edema. The thyroid gland is not well-visualized. The lung apices are clear. IMPRESSION: There is severe degenerative disc and bony disease involving the cervical spine but there is no evidence for an acute bony abnormality. Dictated on workstation # [id number] Dict: 02/27/21 1136 Trans: 02/27/21 1150 [facility] [id number] Interpreted by: MELLISSA WOODS MD Electronically signed by: Reviewed: Reviewed by Me Departure Impression Primary Impression: Chronic atrial fibrillation with rapid ventricular response Additional Impressions: Falls frequently Physical debility Disposition: 01 HOME, SELF-CARE Condition: Stable Departure-Patient Inst. Decision time for Depature: 12:21 Referrals: TONY EAGLE DO (PCP/Family) Primary Care Physician Patient Instructions: Preventing Falls, Atrial Fibrillation and Atrial Flutter ED Add. Discharge Instructions: I suspect that your rapid heart rate from your atrial fibrillation was causing your weakness and falls. Make a follow-up appointment with Dr. Eagle to discuss this and managing your symptoms. Echo follow-up appointment next week with Dr. Klein, your software asset management analyst to discuss medications for her atrial fibrillation. Metoprolol 50 mg twice a day until you see your software asset management analyst. Start taking this tonight. Drink plenty of fluids. Return to the ER promptly if you are having worsening symptoms. All discharge instructions reviewed with patient and/or family. Voiced understanding. Scripts Metoprolol Tartrate (Metoprolol Tartrate) 50 Mg Tablet 50 MG PO BID for 14 Days, #30 TAB 0 Refills Prov: LILIANA MICHAEL 02/27/21 Copy Copies To 1: TONY EAGLE DO LILIANA MICHAEL Feb 27, 2021 09:59
[2021-02-27] MEDS ORDERED: meTOprolol 5 MG/5 ML (LOPRESSOR) VIAL IV ONE (10:00)
[2021-02-27] MEDS ORDERED: NS IV 1000 ML 1,000 ML IV SCH (10:00)
[2021-02-27 10:06] LABS: BASOPHILS % (AUTO) 0 % (0-10); MEAN PLATELET VOLUME 10.9 fL (9.0-12.2)
[2021-02-27 10:08] LABS: EOSINOPHILS % (AUTO) 1 % (0-10); HEMATOCRIT 37 % (35-52); HEMOGLOBIN 12.3 g/dL (11.5-16.0); LYMPHOCYTES # (AUTO) 1.1 10^3/uL (1.0-4.0); LYMPHOCYTES % (AUTO) 21 % (12-44); MEAN CORPUSCULAR HEMOGLOBIN 31 pg (25-34); MEAN CORPUSCULAR HGB CONC 33 g/dL (32-36); MEAN CORPUSCULAR VOLUME 93 fL (80-99); MONOCYTES # (AUTO) 0.5 10^3/uL (0.0-1.0); MONOCYTES % (AUTO) 9 % (0-12); NEUTROPHILS # (AUTO) 3.7 10^3/uL (1.8-7.8); NEUTROPHILS % (AUTO) 68 % (42-75); PLATELET COUNT 141 10^3/uL (130-400); WHITE BLOOD COUNT 5.3 10^3/uL (4.3-11.0)
[2021-02-27 10:18] LABS: ALBUMIN 3.6 GM/DL (3.2-4.5); CHLORIDE 102 MMOL/L (98-107); SODIUM 133 MMOL/L (135-145)
[2021-02-27 10:19] LABS: CALCIUM 8.8 MG/DL (8.5-10.1)
[2021-02-27 10:20] LABS: GLUCOSE 119 MG/DL (70-105)
[2021-02-27 10:21] LABS: TOTAL PROTEIN 6.7 GM/DL (6.4-8.2)
[2021-02-27 10:22] LABS: BILIRUBIN,TOTAL 0.3 MG/DL (0.1-1.0); CARBON DIOXIDE 20 MMOL/L (21-32)
[2021-02-27 10:24] LABS: ALKALINE PHOSPHATASE 47 U/L (40-136); CREATININE SERUM 1.25 MG/DL (0.60-1.30); GFR ESTIMATED 41
[2021-02-27 10:25] LABS: BUN/CREATININE RATIO 22
[2021-02-27 10:27] LABS: ALANINE AMINOTRANSFERASE 12 U/L (0-55)
--- NOTE | 2021-02-27 11:39 | Diagnostic Imaging Report ---
Portable supine chest 11:19. Indication: Fell, chest pain The heart size is within normal limits and stable compared to 02/10/2020. The lungs are generally clear. There is no sign of failure, pneumonia or pleural effusion. There is a linear lucency extending longitudinally through the right lung base. I suspect this is related to a skinfold and not to a pneumothorax. The mediastinum is not widened. The osseous structures are intact. The left-sided central venous catheter and loop recorder device on the left seen previously are again evident and no different. Impression: There is no evidence for acute cardiopulmonary abnormality. Dictated by: Dictated on workstation # [id number]
--- NOTE | 2021-02-27 11:51 | Diagnostic Imaging Report ---
Pelvis and bilateral hips at 11:23. Indication: Trauma Single AP view of the pelvis and AP and lateral views of both hip joints were obtained. There is no fracture, dislocation or acute bony abnormality. There is at least moderate degenerative disease of both hip joints. The degenerative changes involving the left hip seems similar to the prior exam of 05/13/2017. There is also mild symmetrical sclerosis of the sacroiliac joints. The visualized lower lumbar spine show severe degenerative disc and bone disease at L4-L5 and L5-S1. The soft tissues are unremarkable. Impression: There is no evidence for an acute bony abnormality. Dictated by: Dictated on workstation # [id number]
--- NOTE | 2021-02-27 11:51 | Diagnostic Imaging Report ---
PROCEDURE: CT head and CT cervical spine without contrast. TECHNIQUE: Multiple contiguous axial images were obtained through the brain and cervical spine without the use of intravenous contrast. Sagittal and coronal reformations through the cervical spine were then performed. Auto Exposure Controls were utilized during the CT exam to meet ALARA standards for radiation dose reduction. INDICATION: Fell, head and neck pain CT HEAD: There is no mass, shift of the midline or hemorrhage to suggest an acute intracranial abnormality. The ventricles are not abnormally dilated, stable in size when compared to the prior exam of 02/23/2021. The senescent changes increased are again evident and different. The bone windows show no evidence for skull fracture or for destructive lesion. However in the interval since the prior exam edema/inflammation of the soft tissues overlying scalp of the left parietal bone near vertex of skull has developed. The orbits are symmetrical and within normal limits. The sinuses where visualized are clear. IMPRESSION: 1. There is no evidence for an acute intracranial abnormality. 2. If clinical concern regarding an underlying abnormality persists, then MRI would be recommended for further study. 3. There is a soft tissue injury to the scalp overlying the left parietal bone. There is no skull fracture identified however. CT CERVICAL SPINE The reconstructed parasagittal images show severe degenerative disc and bony disease at C2-C3 and C3-4. There also appears to be a block vertebra formation or prior fusion of C5, C6 and C7. Correlation with the patient's surgical history would be recommended. There is no high-grade central stenosis identified however. There is no fracture or acute bony abnormality evident. There is no sign of retropharyngeal edema. The thyroid gland is not well-visualized. The lung apices are clear. IMPRESSION: There is severe degenerative disc and bony disease involving the cervical spine but there is no evidence for an acute bony abnormality. Dictated by: Dictated on workstation # [id number]
[2021-02-27] MEDS ORDERED: METO50TA15 PO (12:25)
[2021-02-27] MEDS ORDERED: meTOproloL SUCCINATE 50 MG (TOPROL XL) TAB PO SCH (12:30)
[2021-02-27 13:00] LABS: BILIRUBIN,URINE NEGATIVE (NEGATIVE); CLARITY,URINE SL CLOUDY; COLOR,URINE YELLOW; GLUCOSE, URINE (UA) NEGATIVE (NEGATIVE); KETONES,URINE NEGATIVE (NEGATIVE); LEUKOCYTE ESTERASE ,URINE NEGATIVE (NEGATIVE); NITRITE,URINE NEGATIVE (NEGATIVE); PROTEIN,URINE 1+ (NEGATIVE)
[2021-02-27 13:08] LABS: AMPHETAMINE SCREEN, URINE NEGATIVE (NEGATIVE); BARBITURATE SCREEN URINE NEGATIVE (NEGATIVE); BENZODIAZEPINES SCREEN URINE NEGATIVE (NEGATIVE); CANNABINOID SCREEN, URINE NEGATIVE (NEGATIVE); COCAINE SCREEN URINE NEGATIVE (NEGATIVE); METHADONE STAT NEGATIVE (NEGATIVE); METHAMPHETAMINE SCREEN URINE S NEGATIVE (NEGATIVE); OPIATE SCREEN URINE NEGATIVE (NEGATIVE); OXYCODONE STAT NEGATIVE (NEGATIVE); PROPOXYPHENE STAT NEGATIVE (NEGATIVE); TRICYCLIC ANTIDEPRESSANTS SCRE NEGATIVE (NEGATIVE)
[2021-02-27 13:10] LABS: BACTERIA,URINE TRACE /HPF
[2021-02-27 14:40] VITALS: BP 146/99
== END 2021-02-27 14:40 | disposition home or self-care (01) ==
LOC: EDUNIT# 09:33 → ER 09:36
DX: I48.20 Chronic atrial fibrillation, unspecified (principal); R29.6 Repeated falls; R53.81 Other malaise; J44.9 Chronic obstructive pulmonary disease, unspecified; I10 Essential (primary) hypertension; Z86.73 Personal history of transient ischemic attack (TIA), and cerebral infarction without residual deficits; Z79.01 Long term (current) use of anticoagulants
CPT/HCPCS: 70450; 71045; 72125; 73522; 80053; 80306; 81000; 84484; 85025; 86141; 93005; 99285; G0480; 36415; 80320

== ENCOUNTER 2021-03-01 23:27 | Inpatient (IN) | payer MEDICARE, OTHER ==
[~2021-03-01] VITALS: Ht 147.4 cm; Wt 57.1 kg
[~2021-03-01 23:27] MED LIST changes: +METO50TA15 PO
[2021-03-01] MEDS ORDERED: LACTATED RINGERS 1,000 ML IV ONE (23:45)
--- NOTE | 2021-03-01 23:46 | ED Neurological Problem ---
General Chief Complaint: Neuro-Stroke Like Symptoms Stated Complaint: UNRESPONSIVE Source: patient Exam Limitations: no limitations History of Present Illness Date Seen by Provider: Mar 01, 2021 Time Seen by Provider: 23:27 Initial Comments Patient to the ER by EMS from home with chief complaint that she was short of breath with oxygen saturations of 90% and acting altered. EMS reports a fever although upon arrival she had a 39.0 temp for nursing staff. She has a history of atrial fibrillation with rapid ventricular response on Eliquis and was here 2 days ago with generalized weakness for the past several days and was in A. fib with RVR. Fluids were given and her beta-blockers were increased. The patient declined to stay in the hospital at that time. Today the patient stares straight ahead and responds to pain but does not give any meaningful history. She is accompanied by her daughter. Daughter states the patient been going downhill for about a week. They were seen by Dr. Eagle after she had a fall on Monday and started on an antibiotic but she is not sure what for. She was seen by Dr. Eagle's clinic today and noted to have a low blood pressure 70/40 on standing. She was slowing in her mentation having a difficult time getting words out today. The daughter thought that the patient's right face was drooping some but did not notice this when they were at the doctor's office. She does not have a history of stroke but she is on a blood thinner. Allergies and Home Medications Allergies Coded Allergies: amiodarone (Verified Allergy, Intermediate, LIGHTHEADED, 02/07/20) diltiazem (Verified Allergy, Intermediate, LIGHTHEADED, 02/07/20) flecainide (Verified Allergy, Intermediate, LIGHTHEADED, 02/07/20) adhesive tape (Verified Allergy, Unknown, 02/07/20) clopidogrel (Verified Allergy, Unknown, 02/07/20) diclofenac (Unverified Allergy, Unknown, Pt has received Motrin & Ketorolac int he past, 03/02/21) fludrocortisone (Verified Allergy, Unknown, Pt has received Solu-medrol in the past, 03/02/21) gluten (Verified Allergy, Unknown, 02/07/20) oxycodone (Verified Allergy, Unknown, Pt has received Lortab w/o issue, 02/07/20) tramadol (Unverified Allergy, Unknown, 02/07/20) SEVERE ITCHING Home Medications Acai Ordoñez Extract 500 Mg Capsule, 1,000 MG PO DAILY, (Reported) Last Action: Held Apixaban 5 Mg Tablet, 5 MG PO BID, (Reported) Last Action: Held Calcium Carb/Magnesium Oxid/D3 1 Each Tablet, 1 EACH PO HS, (Reported) Last Action: Held Cholecalciferol (Vitamin D3) 75 Mcg Tablet, 150 MCG PO DAILY, (Reported) Last Action: Converted Disopyramide Phosphate 100 Mg Capsule, 100 MG PO BID, (Reported) Last Action: Converted Ferrous Sulfate, Dried 160 Mg Tablet.er, 65 MG PO DAILY, (Reported) Last Action: Held Fexofenadine HCl 180 Mg Tablet, 180 MG PO DAILY, (Reported) Last Action: Converted Garlic 1,000 Mg Capsule, 1,000 MG PO DAILY, (Reported) Last Action: Held Glucosa Olivera 2Kcl/Chondroitin Olivera 1 Each Capsule, 1 EACH PO BID, (Reported) Last Action: Held Ipratropium/Albuterol Sulfate 3 Ml Ampul.neb, 3 ML NEB Q6H PRN for SHORTNESS OF BREATH, (Reported) Last Action: Continued Lactobacillus Combo No.11 1 Each Cap.sprink, 1 EACH PO DAILY, (Reported) Last Action: Converted Lipase/Protease/Amylase 1 Each Capsule.dr, 2 EA PO BID, (Reported) Last Action: Reviewed Metoprolol Tartrate 50 Mg Tablet, 25 MG PO BID, (Reported) TAKES OF A 50MG TAB Last Action: Continued Midodrine HCl 5 Mg Tablet, 5 MG PO TID, (Reported) Last Action: Converted Mupirocin 22 Gm Oint...g., 1 APPLIC TP BID, (Reported) APPLY TO RIGHT CHEEK Last Action: Continued Niacin (Inositol Niacinate) Unknown Strength Capsule, 800 MCG PO HS, (Reported) Last Action: Held Pantoprazole Sodium 40 Mg Tablet.dr, 40 MG PO DAILY, (Reported) Last Action: Continued Phytonadione 100 Mcg Tablet, 100 MCG PO DAILY, (Reported) Last Action: Held Potassium Gluconate 99 Mg Tablet, 99 MG PO HS, (Reported) Last Action: Held Ubidecarenone 400 Mg Capsule, 400 MG PO HS, (Reported) Last Action: Held Vitamin E Mixed 400 Unit Capsule, 400 UNIT PO DAILY, (Reported) Last Action: Held Zinc Gluconate 50 Mg Tablet, 50 MG PO DAILY, (Reported) Last Action: Converted [Neuro-Ps] , 1 EACH PO HS, (Reported) Last Action: Held Patient Home Medication List Home Medication List Reviewed: Yes Review of Systems Review of Systems Constitutional: No chills; fever, malaise, weakness Eyes: Denies Blindness, Denies Drainage Ears, Nose, Mouth, Throat: denies ear pain, denies nose pain Respiratory: No cough, No phlegm, No short of breath Cardiovascular: No chest pain, No palpitations Gastrointestinal: No abdominal pain, No nausea, No vomiting Genitourinary: No discharge, No dysuria Musculoskeletal: No back pain, No joint pain All Other Systems Reviewed Negative Unless Noted: Yes Past Qrttvic-Owmgcj-Fhrpqf Hx Patient Social History Tobacco Use?: No Use of E-Cig and/or Vaping dev: No Substance use?: No Alcohol Use?: No Pt feels they are or have been: No Immunizations Up To Date Tetanus Booster (TDap): Less than 5yrs Seasonal Allergies Seasonal Allergies: Yes Past Medical History Surgery/Hospitalization HX: afib, copd,htn, cva x2, colon resection. 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 Sexually Transmitted Disease: No HIV/AIDS: No Genitourinary: No Gastrointestinal: Yes (CELIAC DISEASE, HX COLON RESECTION FOR CA, LOW FUNCTIONING PANCREAS) Chronic Constipation Musculoskeletal: Yes (OSTEOARTHRITIS) Arthritis, Chronic Back Pain Endocrine: No HEENT: Yes (GLASSES) Cataract Loss of Vision: Denies Hearing Impairment: Hard of Hearing, Bilateral Hearing Aide Cancer: Yes Colon Did You Recieve Any Treatments: Yes What Type of Treatment Did You: Chemotherapy, Surgical Intervention Psychosocial: No Integumentary: No 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 0.0oz. 59.520161gj; 26.00 BMI Method:Stated General Appearance: WD/WN, moderate distress HEENT: PERRL/EOMI (3 mm symmetric), TMs normal; No pharynx normal (Oropharynx is dry) Neck: full range of motion, normal inspection Respiratory: lungs clear, normal breath sounds, no respiratory distress, no accessory muscle use Cardiovascular: normal peripheral pulses, regular rate, rhythm, no edema Peripheral Pulses: 2+ Dorsalis Pedis (R), 2+ Left Dors-Pedis (L), 2+ Radial Pulses (R), 2+ Radial Pulses (L) Gastrointestinal: normal bowel sounds, non tender, soft Extremities: normal range of motion, non-tender, normal inspection, no pedal edema, no calf tenderness, normal capillary refill Neurologic/Psychiatric: alert, other (GCS 10, withdraws to pain and does not talk but moans with noxious stimuli) Crainal Nerves: normal hearing, normal speech, PERRL Motor/Sensory: no motor deficit, no sensory deficit, no pronator drift Skin: normal color, warm/dry Focused Exam Lactate Level 03/01/21 23:50: Lactic Acid Level 1.19 Lactic Acid Level Laboratory Tests Test 03/01/21 23:50 Lactic Acid Level 1.19 MMOL/L (0.50-2.00) Procedures/Interventions Suture Size: 5-0 Progress/Results/Core Measures Results/Orders Lab Results Laboratory Tests Test 03/01/21 23:38 03/01/21 23:42 03/01/21 23:49 03/01/21 23:50 Range/Units White Blood Count 8.8 4.3-11.0 10^3/uL Red Blood Count 4.13 3.80-5.11 10^6/uL Hemoglobin 12.7 11.5-16.0 g/dL Hematocrit 38 35-52 % Mean Corpuscular Volume 91 80-99 fL Mean Corpuscular Hemoglobin 31 25-34 pg Mean Corpuscular Hemoglobin Concent 34 32-36 g/dL Red Cell Distribution Width 13.5 10.0-14.5 % Platelet Count 162 130-400 10^3/uL Mean Platelet Volume 11.7 9.0-12.2 fL Immature Granulocyte % (Auto) 0 % Neutrophils (%) (Auto) 66 42-75 % Lymphocytes (%) (Auto) 29 12-44 % Monocytes (%) (Auto) 5 0-12 % Eosinophils (%) (Auto) 0 0-10 % Basophils (%) (Auto) 0 0-10 % Neutrophils # (Auto) 5.8 1.8-7.8 10^3/uL Lymphocytes # (Auto) 2.5 1.0-4.0 10^3/uL Monocytes # (Auto) 0.4 0.0-1.0 10^3/uL Eosinophils # (Auto) 0.0 0.0-0.3 10^3/uL Basophils # (Auto) 0.0 0.0-0.1 10^3/uL Immature Granulocyte # (Auto) 0.0 0.0-0.1 10^3/uL D-Dimer 0.78 H 0.00-0.49 UG/ML Sodium Level 130 L 135-145 MMOL/L Potassium Level 4.9 3.6-5.0 MMOL/L Chloride Level 101 98-107 MMOL/L Carbon Dioxide Level 20 L 21-32 MMOL/L Anion Gap 9 5-14 MMOL/L Blood Urea Nitrogen 31 H 7-18 MG/DL Creatinine 1.60 H 0.60-1.30 MG/DL Estimat Glomerular Filtration Rate 30 BUN/Creatinine Ratio 19 Glucose Level 112 H 70-105 MG/DL Calcium Level 8.8 8.5-10.1 MG/DL Corrected Calcium 9.2 8.5-10.1 MG/DL Total Bilirubin 0.3 0.1-1.0 MG/DL Aspartate Amino Transf (AST/SGOT) 34 5-34 U/L Alanine Aminotransferase (ALT/SGPT) 17 0-55 U/L Alkaline Phosphatase 50 40-136 U/L C-Reactive Protein High Sensitivity 3.38 H 0.00-0.50 MG/DL Total Protein 6.9 6.4-8.2 GM/DL Albumin 3.5 3.2-4.5 GM/DL Procalcitonin 0.10 H <0.10 NG/ML Influenza Type A (RT-PCR) Not Detected Not Detecte Influenza Type B (RT-PCR) Not Detected Not Detecte SARS-CoV-2 RNA (RT-PCR) Detected H Not Detecte Blood Gas Puncture Site LEFT RADIAL Blood Gas Patient Temperature 36.1 Arterial Blood pH 7.46 H 7.37-7.43 Arterial Blood Partial Pressure CO2 27 L 35-45 MMHG Arterial Blood Partial Pressure O2 87 79-93 MMHG Arterial Blood HCO3 19 L 23-27 MMOL/L Arterial Blood Total CO2 19.7 L 21.0-31.0 MMOL/L Arterial Blood Oxygen Saturation 98 94-100 % Arterial Blood Base Excess -4.5 L -2.5-2.5 MMOL/L Antelmo Test YES-POS Blood Gas Ventilator Setting NO Blood Gas Inspired Oxygen 2L Prothrombin Time 17.8 H 12.2-14.7 SEC INR Comment 1.4 0.8-1.4 Activated Partial Thromboplast Time 47 H 24-35 SEC Lactic Acid Level 1.19 0.50-2.00 MMOL/L Test 03/01/21 23:55 Range/Units Urine Color YELLOW Urine Clarity CLEAR Urine pH 6.0 5-9 Urine Specific [place] 1.020 1.016-1.022 Urine Protein 1+ H NEGATIVE Urine Glucose (UA) NEGATIVE NEGATIVE Urine Ketones NEGATIVE NEGATIVE Urine Nitrite NEGATIVE NEGATIVE Urine Bilirubin NEGATIVE NEGATIVE Urine Urobilinogen 0.2 < = 1.0 MG/DL Urine Leukocyte Esterase NEGATIVE NEGATIVE Urine RBC (Auto) TRACE-I NEGATIVE Urine RBC 0-2 /HPF Urine WBC NONE /HPF Urine Squamous Epithelial Cells RARE /HPF Urine Crystals NONE /LPF Urine Bacteria NEGATIVE /HPF Urine Casts NONE /LPF Urine Mucus NEGATIVE /LPF Urine Culture Indicated NO My Orders Orders - LILIANA MICHAEL Covid 19 Inhouse Test (03/01/21 23:42) Arterial Blood Gas (03/01/21 23:42) Cbc With Automated Diff (03/01/21 23:42) Comprehensive Metabolic Panel (03/01/21 23:42) Hs C Reactive Protein (03/01/21 23:42) Fibrin Degradation Products (03/01/21 23:42) Procalcitonin (Pct) (03/01/21 23:42) Ua Culture If Indicated (03/01/21 23:42) Influenza A And B By Pcr (03/01/21 23:42) Ed Iv/Invasive Line Start (03/01/21 23:42) Lactated Ringers (Lr 1000 Ml Iv Solution (03/01/21 23:45) Ct Head Wo (03/02/21 00:01) Chest 1 View, Ap/Pa Only (03/02/21 00:01) Blood Culture (03/02/21 00:07) Lactic Acid Analyzer (03/02/21 00:07) Protime With Inr (03/02/21 00:07) Partial Thromboplastin Time (03/02/21 00:07) Acetaminophen Tablet (Tylenol Tablet) (03/02/21 00:15) Ed Iv/Invasive Line Start (03/02/21 00:07) Ekg Tracing (03/02/21 00:07) Vital Signs Adult Sepsis Patie Q15M (03/02/21 00:07) O2 (03/02/21 00:07) Remove Rings In Anticipation O (03/02/21 00:07) Medications Given in ED Vital Signs/I&O 03/01/21 23:28 Temp 39.0 Pulse 86 Resp 20 B/P (MAP) 154/84 (107) Pulse Ox 95 O2 Delivery Nasal Cannula O2 Flow Rate 2.00 Progress Progress Note : Time: 00:05 Progress Note Septic work-up. We will start with a liter of fluids and which is a little less than 20 mL/kg because we are swabbing for Covid and influenza. Initial ECG Impression Date: Mar 01, 2021 Initial ECG Impression Time: 23:38 Initial ECG Rate: 72 Initial ECG Rhythm: Normal Sinus Initial ECG Intervals: QT (482) Initial ECG Impression: Normal, Nonspecific Changes Comment Sinus rhythm without clinically relevant ST changes. Borderline prolonged QTC. Diagnostic Imaging Diagonstic Imaging: Xray Plain Films/CT/US/NM/MRI: chest Comments New interval multifocal patchy groundglass opacities consistent with an atypical pneumonia compared to 2 days ago. [facility] [place] [place] NAME: MICA OGLESBY [facility] REC#: [id number] PT STATUS: ADM IN : 1935 PHYSICIAN: LILIANA MICHAEL MD ADMIT DATE: 03/02/21 Signed Date of Exam:03/02/21 CHEST 1 VIEW, AP/PA ONLY Indication: Dyspnea AP view of the chest is obtained with comparison made to study of 02/27/2021. Overall heart size is within normal limits. There has been mild increase in density throughout the lungs bilaterally. This is most pronounced in the periphery of the right lung. No pneumothorax is identified. Advanced degenerative findings are seen in the shoulders. IMPRESSION: Increasing peripheral infiltrates, greater on the right. Dictated by: Dictated on workstation # [id number] Dict: 03/02/21630 Trans: 03/02/214 MARK [id number] Interpreted by: LOLY BURNS MD Electronically signed by: LOLY BURNS MD 03/02/211203 Reviewed: Reviewed by Me Diagonstic Imaging: CT Plain Films/CT/US/NM/MRI: head Comments No acute intracranial hemorrhage mass-effect midline shift or tumor. No calvarial fracture. [facility] [place] [place] NAME: MICA OGLESBY [facility] REC#: [id number] PT STATUS: ADM IN : 1935 PHYSICIAN: LILIANA MICHAEL MD ADMIT DATE: 03/02/21 Signed Date of Exam:03/02/21 CT HEAD WO PROCEDURE: CT head without contrast. TECHNIQUE: Multiple contiguous axial images were obtained through the brain without the use of intravenous contrast. Auto Exposure Controls were utilized during the CT exam to meet ALARA standards for radiation dose reduction. INDICATION: Altered mental status COMPARISON: 02/27/2021 Ventricles and sulci are prominent with low-density deep white matter both cerebral hemispheres. No hemorrhage is identified. There is no abnormal mass effect or shift of midline structures. Calvarium is intact and the visualized paranasal sinuses are clear. IMPRESSION: Senescent findings in the brain without acute intracranial abnormality detected. Dictated by: Dictated on workstation # [id number] Dict: 03/02/21628 Trans: 03/02/21 1204 MARK [id number] Interpreted by: LOLY BURNS MD Electronically signed by: LOLY BURNS MD 03/02/211203 Reviewed: Reviewed by Me Departure Communication (Admissions) Time/Spoke to Admitting Phy: 01:00 Dr. Richardson agrees to admit the patient on steroids and anticipate remdesivir. Impression Primary Impression: COVID-19 Additional Impressions: Acute on chronic respiratory failure with hypoxemia Delirium due to another medical condition, acute, hypoactive Disposition: ADMITTED INPATIENT Condition: Stable Admissions Decision to Admit Reason: Admit from ER (General) Decision to Admit/Date: Mar 01, 2021 Time/Decision to Admit Time: 23:30 Departure-Patient Inst. Referrals: TONY EAGLE DO (PCP/Family) Primary Care Physician Copy Copies To 1: TONY EAGLE TITUS J Mar 01, 2021 23:46
[2021-03-01 23:52] LABS: BASOPHILS % (AUTO) 0 % (0-10); EOSINOPHILS % (AUTO) 0 % (0-10); HEMATOCRIT 38 % (35-52); HEMOGLOBIN 12.7 g/dL (11.5-16.0); LYMPHOCYTES # (AUTO) 2.5 10^3/uL (1.0-4.0); LYMPHOCYTES % (AUTO) 29 % (12-44); MEAN CORPUSCULAR HEMOGLOBIN 31 pg (25-34); MEAN CORPUSCULAR HGB CONC 34 g/dL (32-36); MEAN CORPUSCULAR VOLUME 91 fL (80-99); MEAN PLATELET VOLUME 11.7 fL (9.0-12.2); MONOCYTES # (AUTO) 0.4 10^3/uL (0.0-1.0); MONOCYTES % (AUTO) 5 % (0-12); NEUTROPHILS # (AUTO) 5.8 10^3/uL (1.8-7.8); NEUTROPHILS % (AUTO) 66 % (42-75); PLATELET COUNT 162 10^3/uL (130-400); WHITE BLOOD COUNT 8.8 10^3/uL (4.3-11.0)
[2021-03-01 23:55] LABS: ALBUMIN 3.5 GM/DL (3.2-4.5); POTASSIUM 4.9 MMOL/L (3.6-5.0)
[2021-03-01 23:56] LABS: CALCIUM 8.8 MG/DL (8.5-10.1)
[2021-03-01 23:57] LABS: TOTAL PROTEIN 6.9 GM/DL (6.4-8.2)
[2021-03-01 23:59] LABS: BILIRUBIN,TOTAL 0.3 MG/DL (0.1-1.0)
[2021-03-02] VITALS (7 sets, daily range): BP systolic 119–150; BP diastolic 64–98
[2021-03-02 00:01] LABS: CREATININE SERUM 1.6 MG/DL (0.60-1.30)
[2021-03-02 00:03] LABS: ABG BASE EXCESS -4.5 MMOL/L (-2.5-2.5); ABG OXYGEN SATURATION 98 % (94-100); ABG PCO2 27 MMHG (35-45); ABG PH 7.46 (7.37-7.43); ABG PO2 87 MMHG (79-93); ABG TCO2 19.7 MMOL/L (21.0-31.0)
[2021-03-02 00:03] LABS: BILIRUBIN,URINE NEGATIVE (NEGATIVE); CLARITY,URINE CLEAR; COLOR,URINE YELLOW; GLUCOSE, URINE (UA) NEGATIVE (NEGATIVE); KETONES,URINE NEGATIVE (NEGATIVE); LEUKOCYTE ESTERASE ,URINE NEGATIVE (NEGATIVE); NITRITE,URINE NEGATIVE (NEGATIVE); PROTEIN,URINE 1+ (NEGATIVE)
[2021-03-02 00:04] LABS: ALLENS TEST YES-POS; INSPIRED O2 2L; PATIENT TEMP 36.1; VENTILATOR NO
[2021-03-02 00:09] LABS: BACTERIA,URINE NEGATIVE /HPF; RBC,URINE 0-2 /HPF; SQUAMOUS EPITHELIAL CELL,UR RARE /HPF
[2021-03-02] MEDS ORDERED: ACETAMINOPHEN 500 MG TAB (TYLENOL) PO PRN (00:15)
[2021-03-02 00:29] LABS: INR 1.4 (0.8-1.4); PROTHROMBIN TIME PATIENT 17.8 SEC (12.2-14.7)
[2021-03-02] MEDS ORDERED: ACETAMINOPHEN 650 MG SUPP (TYLENOL) ONE (01:41)
[2021-03-02] MEDS ORDERED: ACETAMINOPHEN 650 MG SUPP (TYLENOL) PR ONE (01:45)
[2021-03-02] MEDS ORDERED: LACTATED RINGERS 1,000 ML IV ONE (02:01)
[2021-03-02] MEDS ORDERED: ONDANSETRON 4 MG/2 ML (SDV) Z0FRAN IV PRN (02:15)
[2021-03-02] MEDS ORDERED: ACETAMINOPHEN 325 MG TABLET PO PRN (02:15)
[2021-03-02] MEDS ORDERED: ACETAMINOPHEN 650 MG SUPP (TYLENOL) PR PRN (02:15)
[2021-03-02] MEDS: LACTATED RINGERS 1,000 ML IV SCH ×3 (03:18→22:16)
[2021-03-02 06:05] LABS: BASOPHILS % (AUTO) 0 % (0-10); MONOCYTES # (AUTO) 0.6 10^3/uL (0.0-1.0)
[2021-03-02 06:08] LABS: EOSINOPHILS % (AUTO) 0 % (0-10); HEMATOCRIT 35 % (35-52); HEMOGLOBIN 11.4 g/dL (11.5-16.0); LYMPHOCYTES % (AUTO) 28 % (12-44); MEAN CORPUSCULAR HEMOGLOBIN 31 pg (25-34); MEAN CORPUSCULAR HGB CONC 33 g/dL (32-36); MEAN CORPUSCULAR VOLUME 95 fL (80-99); MEAN PLATELET VOLUME 11.5 fL (9.0-12.2); MONOCYTES % (AUTO) 8 % (0-12); NEUTROPHILS # (AUTO) 4.7 10^3/uL (1.8-7.8); NEUTROPHILS % (AUTO) 64 % (42-75); PLATELET COUNT 130 10^3/uL (130-400); WHITE BLOOD COUNT 7.3 10^3/uL (4.3-11.0)
[2021-03-02 06:17] LABS: POTASSIUM 4.5 MMOL/L (3.6-5.0)
[2021-03-02 06:18] LABS: CALCIUM 8.4 MG/DL (8.5-10.1)
[2021-03-02 06:22] LABS: CREATININE SERUM 1.53 MG/DL (0.60-1.30)
[2021-03-02] MEDS ORDERED: IBUPROFEN 600 MG (MOTRIN) TAB PO PRN (06:30)
--- NOTE | 2021-03-02 06:42 | Diagnostic Imaging Report ---
Indication: Dyspnea AP view of the chest is obtained with comparison made to study of 02/27/2021. Overall heart size is within normal limits. There has been mild increase in density throughout the lungs bilaterally. This is most pronounced in the periphery of the right lung. No pneumothorax is identified. Advanced degenerative findings are seen in the shoulders. IMPRESSION: Increasing peripheral infiltrates, greater on the right. Dictated by: Dictated on workstation # [id number]
--- NOTE | 2021-03-02 06:43 | Diagnostic Imaging Report ---
PROCEDURE: CT head without contrast. TECHNIQUE: Multiple contiguous axial images were obtained through the brain without the use of intravenous contrast. Auto Exposure Controls were utilized during the CT exam to meet ALARA standards for radiation dose reduction. INDICATION: Altered mental status COMPARISON: 02/27/2021 Ventricles and sulci are prominent with low-density deep white matter both cerebral hemispheres. No hemorrhage is identified. There is no abnormal mass effect or shift of midline structures. Calvarium is intact and the visualized paranasal sinuses are clear. IMPRESSION: Senescent findings in the brain without acute intracranial abnormality detected. Dictated by: Dictated on workstation # [id number]
[2021-03-02] MEDS ORDERED: IPRA3AMP31 NEB (11:01)
[2021-03-02] MEDS ORDERED: MUPI22OI2 TP (11:01)
[2021-03-02] MEDS ORDERED: MIDO5TAB3 PO (11:01)
[2021-03-02] MEDS ORDERED: METO50TA15 PO (11:01)
[2021-03-02] MEDS ORDERED: LIPA1CAP4 PO (11:01)
[2021-03-02] MEDS ORDERED: DISO100C3 PO (11:34)
[2021-03-02] MEDS ORDERED: ACAI500C9 PO (11:34)
[2021-03-02] MEDS ORDERED: GARL1TAB2 PO (11:34)
[2021-03-02] MEDS ORDERED: CHOL3000 PO (12:18)
[2021-03-02] MEDS ORDERED: ACAI500C PO (12:18)
[2021-03-02] MEDS ORDERED: GARL10002 PO (12:18)
[2021-03-02] MEDS ORDERED: PHYT100T PO (12:18)
[2021-03-02] MEDS ORDERED: CALC-408 PO (12:18)
[2021-03-02] MEDS ORDERED: NEURO-PS PO (12:23)
--- NOTE | 2021-03-02 14:27 | History & Physical-Hospitalist ---
History of Present Illness HPI/Chief Complaint Pt is an 85yoCF with a PMH of a fib who presented to the ER due to weakness, SOB, and AMS. While she is alert and able to tell me about her chronic issues she does not remember much of yesterday. History obtained from the daughter and records. She apparently has not been feeling well for a week or so. She has a fall last week and had a CT of her head done by her PCP on 02/23. (This was negative for acute findings.) She was seen in the ER 2 days ago and was found to be in a-fib with RVR. Admission was recommended but she declined. She was seen by her PCP yesterday and was orthostatic with BP 70/40 with standing. She continued to have altered mentation and had slow speech per her daughter. Her daughter thought there was a right sided facial droop so brought her to the ER. She was found to be febrile and hypoxic. She is unvaccinated against COVID. She was tested and was found to be positive for COVID. This morning she has no complaints and just asks what landed her in the hospital. Source: patient Date Seen 03/02/21 Time Seen by a Provider: 14:27 Attending Physician Noe Jernigan MD PCP Ryan Eagle DO Referring Physician Date of Admission Mar 02, 2021 at 00:40 Home Medications & Allergies Home Medications Reviewed patient Home Medication Reconciliation performed by pharmacy medication reconciliations records technician and/or nursing. Patients Allergies have been reviewed. Allergies Allergies Coded Allergies amiodarone (Verified Allergy, Intermediate, LIGHTHEADED, 02/07/20) diltiazem (Verified Allergy, Intermediate, LIGHTHEADED, 02/07/20) flecainide (Verified Allergy, Intermediate, LIGHTHEADED, 02/07/20) adhesive tape (Verified Allergy, Unknown, 02/07/20) clopidogrel (Verified Allergy, Unknown, 02/07/20) diclofenac (Unverified Allergy, Unknown, Pt has received Motrin & Ketorolac int he past, 03/02/21) fludrocortisone (Verified Allergy, Unknown, Pt has received Solu-medrol in the past, 03/02/21) gluten (Verified Allergy, Unknown, 02/07/20) oxycodone (Verified Allergy, Unknown, Pt has received Lortab w/o issue, 02/07/20) tramadol (Unverified Allergy, Unknown, 02/07/20) SEVERE ITCHING Past Xkutoro-Jjdody-Dkjtcw Hx Patient Social History Tobacco Use?: No Use of E-Cig and/or Vaping dev: Unable to obtain Substance use?: Unable to obtain Alcohol Use?: Unable to obtain Pt feels they are or have been: Unable to obtain Immunizations Up To Date Date of Influenza Vaccine: Apr 15, 2019 Tetanus Booster (TDap): Unknown Date of Pneumonia Vaccine: Apr 15, 2019 Seasonal Allergies Seasonal Allergies: Yes Current Status status: Unable to obtain status: Unable to obtain Advance Directives: Unable to obtain Advance Directive Location: Family to bring in copy Communicates: Does Not Communicate Primary Language: Azeri Preferred Spoken Language: Azeri Is interpretation needed?: Unable to obtain Sensory deficits: Hearing impairment Implanted or Applied Medical D: None Past Medical History Surgeries: Section, Gallbladder, Joint Replacement, Oophorectomy, Orthopedic COPD Atrial Fibrillation, Hypertension, Irregular Heartbeat 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 Sexually Transmitted Disease: No HIV/AIDS: No Chronic Constipation Arthritis, Chronic Back Pain Cataract Loss of Vision: Denies Hearing Impairment: Hard of Hearing, Bilateral Hearing Aide Colon Did You Recieve Any Treatments: Yes What Type of Treatment Did You: Chemotherapy, Surgical Intervention 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 0.0oz. 59.094395va; 26.28 BMI Method:Stated General Appearance: No Apparent Distress, Chronically ill, Thin HEENT: PERRL/EOMI, Moist Mucous Membranes; No Scleral Icterus (L), No Scleral Icterus (R) Neck: Normal Inspection, Supple Respiratory: No Accessory Muscle Use, Decreased Breath Sounds; No Rhonci, No Wheezing; Other (on 2lpm) Cardiovascular: Regular Rate, Rhythm, No Murmur Gastrointestinal: Normal Bowel Sounds, Non Tender, Soft Extremity: Normal Capillary Refill, No Calf Tenderness, No Pedal Edema Neurologic/Psychiatric: Alert, Oriented x3 (but forgetful of past couple of days of illness) Results Results/Procedures Labs Laboratory Tests 03/01/21 23:38 03/02/21 05:40 Patient resulted labs reviewed. Imaging: Reviewed Imaging Report Imaging [facility] [place] [place] NAME: MICA OGLESBY [facility] REC#: [id number] PT STATUS: ADM IN : 1935 PHYSICIAN: LILIANA MICHAEL MD ADMIT DATE: 03/02/21 Signed Date of Exam:03/02/21 CHEST 1 VIEW, AP/PA ONLY Indication: Dyspnea AP view of the chest is obtained with comparison made to study of 02/27/2021. Overall heart size is within normal limits. There has been mild increase in density throughout the lungs bilaterally. This is most pronounced in the periphery of the right lung. No pneumothorax is identified. Advanced degenerative findings are seen in the shoulders. IMPRESSION: Increasing peripheral infiltrates, greater on the right. Dictated by: Dictated on workstation # [id number] Dict: 03/02/21 0631 Trans: 03/02/21 1204 [facility] [id number] Interpreted by: LOLY BURNS MD Electronically signed by: LOLY BURNS MD 03/02/21 1204 [facility] [place] [place] NAME: MICA OGLESBY [facility] REC#: [id number] PT STATUS: ADM IN : 1935 PHYSICIAN: LILIANA MICHAEL MD ADMIT DATE: 03/02/21 Signed Date of Exam:03/02/21 CT HEAD WO PROCEDURE: CT head without contrast. TECHNIQUE: Multiple contiguous axial images were obtained through the brain without the use of intravenous contrast. Auto Exposure Controls were utilized during the CT exam to meet ALARA standards for radiation dose reduction. INDICATION: Altered mental status COMPARISON: 02/27/2021 Ventricles and sulci are prominent with low-density deep white matter both cerebral hemispheres. No hemorrhage is identified. There is no abnormal mass effect or shift of midline structures. Calvarium is intact and the visualized paranasal sinuses are clear. IMPRESSION: Senescent findings in the brain without acute intracranial abnormality detected. Dictated by: Dictated on workstation # [id number] Dict: 03/02/21 0629 Trans: 03/02/21 1204 [facility] [id number] Interpreted by: LOLY BURNS MD Electronically signed by: LOLY BURNS MD 03/02/21 1204 Assessment/Plan Admission Diagnosis Acute hypoxic respiratory failure due to COVID19 Admission Status: Inpatient Order (span 2 midnights) Reason for Inpatient Admission: see below Assessment and Plan Acute hypoxic respiratory failure due to COVID[address] A[address] head negative COVID + roughly 1 week sympatomic per daugher Start on remdesivir Continue decadron PT/OT IS MAT protocol A-fib chronic anticoagulation Continue home meds Decrease eliquis to renal dosing DVT ppx: Eliquis as above NOE JERNIGAN MD Mar 02, 2021 14:27
[2021-03-02] MEDS ORDERED: RT-ALBUTEROL/IPRATROPIUM 3 ML (DUONEB) VIAL IH PRN (14:30)
[2021-03-02] MEDS ORDERED: REMDESIVIR INJ 200 MG in NS (IVPB) 210 ML IV ONE (14:30)
--- NOTE | 2021-03-02 15:12 | Physical Therapy Evaluation ---
PT Evaluation-General Medical Diagnosis Admission Date Mar 02, 2021 at 00:40 Medical Diagnosis: Covid/respiratory failure/delirium Onset Date: Mar 02, 2021 Therapy Diagnosis Therapy Diagnosis: debility/weakness Height/Weight Height (Feet): 4 Height (Inches): 10.00 Weight (Pounds): 132 Weight (Ounces): 0.0 Precautions Precautions/Isolations: Contact Isolation, Droplet Isolation, Fall Prevention Referral Physician: Rere Reason for Referral: Evaluation/Treatment Medical History Pertinent Medical History: Atrial Fib, COPD, CVA, HTN Additional Medical History colon cancer Current History EMS from home secondary to SOA/decreased SAO2 and decreased responsiveness Reviewed History: Yes Social History Home: Single Level Current Living Status: Other Family Prior Prior Level of Function SCALE: Activities may be completed with or without assistive devices. 5-Mbbdqhykie-ndpocaz completes the activity by him/herself with no assistance from a helper. 5-Set-up or Clean-up Assistance-helper sets up or cleans up; patient completes activity. [place] assists only prior to or following the activity. 4-Supervision or Touching Assistance-helper provides verbal cues and/or touching/steadying and/or contact guard assistance as patient completes activity. Assistance may be provided throughout the activity or intermittently. 3-Partial/Moderate Assistance-helper does LESS THAN HALF the effort. [place] lifts, holds or supports trunk or limbs, but provides less than half the effort. 2-Substantial/Maximal Assistance-helper does MORE THAN HALF the effort. [place] lifts or holds trunk or limbs and provides more than half the effort. 2-Tahtircta-crjzia does ALL the effort. Patient does none of the effort to complete the activity. Or, the assistance of 2 or more helpers is required for the patient to complete the activity. If activity was not attempted, code reason: 7-Patient Refused. 9-Not Applicable-not attempted and the patient did not perform the activity before the current illness, exacerbation or injury. 10-Not Attempted due to Environmental Limitations-(lack of equipment, weather restraints, etc.). 88-Not Attempted due to Medical Conditions or Safety Concerns. Bed Mobility: 5 Transfers (B,C,W/C): 5 Gait: 5 Indoor Mobility (Ambulation): Independent Prior Devices Use: Walker PT Evaluation-Current Subjective Patient agrees to PT. Objective Patient Orientation: Confused Attachments: Oxygen, Hernandez Catheter, IV ROM/Strength ROM Lower Extremities bilateral LE WFL Strength Lower Extremities 3+/5 grossly bilateral LE Integumentary/Posture Bowel Incontinence: Yes Bladder Incontinence: Hernandez Cath Posture kyphotic/scoliosis Neuromuscular (Tone, Coordination, Reflexes) diminished coordination due to weakness Sensory Vision: Functional Hearing: Impaired Transfers Sit to Lying (QC): 4 Lying to Sitting/Side of Bed(Q: 4 Sit to Stand (QC): 3 Toilet Transfer (QC): 3 Gait Does the Patient Walk?: Yes Mode of Locomotion: Walk Anticipated Mode of Locomotion: Walk Walk 10 feet (QC): 3 Walk 50 ft with 2 Turns(QC): 88 Walk 150 ft (QC): 88 Distance: 10' Comments/Gait Description 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 female, will benefit from skilled PT to address functional strength and mobility to improve current LOF. Rehab Potential: Guarded PT Mail Weigher Goals Chcf Goals PT Chcf Goals Time Frame: Mar 20, 2021 Roll Left & Right (QC): 5 Sit to Lying (QC): 5 Lying-Sitting on Side/Bed(QC): 5 Sit to Stand (QC): 5 Chair/Umu-az-Powwa Xfer(QC): 5 Toilet Transfer (QC): 5 Does the Patient Walk: Yes Walk 10 feet (QC): 5 Walk 50ft with 2 Turns (QC): 5 Walk 150 ft (QC): 5 PT Plan Problem List Problem List: Activity Tolerance, Functional Strength, Safety, Balance, Gait, Transfer, Bed Mobility Treatment/Plan Treatment Plan: Continue Plan of Care Treatment Plan: Bed Mobility, Education, Functional Activity Peggy, Functional Strength, Gait, Safety, Therapeutic Exercise, Transfers Treatment Duration: Mar 20, 2021 Frequency: 6 times per week Estimated Hrs Per Day: .25 hour per day Time/GCodes Time In: 1450 Time Out: 1505 Total Billed Treatment Time: 15 Total Billed Treatment 1 visit EVModC 15 min GHISLAINE PEDRAZA PT Mar 02, 2021 15:12
[2021-03-02] MEDS ORDERED: RT-ALBUTEROL HFA 8.5 GM INHALER IH PRN (15:15)
[2021-03-02] MEDS: RT-ALBUTEROL HFA 8.5 GM INHALER IH SCH (20:51)
[2021-03-02] MEDS ORDERED: DISOPYRAMIDE 100 MG PO SCH (21:00)
[2021-03-02] MEDS ORDERED: APIXABAN 2.5 MG (ELIQUIS) TABLET PO SCH (21:00)
[2021-03-02] MEDS: MIDODRINE 10 MG (PROAMATINE) TAB PO SCH (21:01)
[2021-03-02] MEDS: APIXABAN 2.5 MG (ELIQUIS) TABLET PO SCH (21:01)
[2021-03-02] MEDS: MUPIROCIN 2% OINT 22 GM (BACTROBAN) TUBE TP SCH (21:01)
[2021-03-02] MEDS: meTOprolol TARTRATE 25 MG (LOPRESSOR) TABLET PO SCH (21:01)
[2021-03-02] MEDS: LIPASE PO SCH (21:03)
[2021-03-02] MEDS: PROTEASE PO SCH (21:03)
[2021-03-02] MEDS: AMYLASE PO SCH (21:03)
[2021-03-03 00:09] VITALS: BP 155/77
[2021-03-03 04:27] VITALS: BP 156/91
[2021-03-03 08:00] VITALS: BP 172/81
[2021-03-03] MEDS: LACTATED RINGERS 1,000 ML IV SCH (08:17)
[2021-03-03] MEDS: ZINC SULFATE 220 MG CAPSULE PO SCH (08:17)
[2021-03-03] MEDS: LIPASE PO SCH ×2 (08:18→20:57)
[2021-03-03] MEDS: AMYLASE PO SCH ×2 (08:18→20:57)
[2021-03-03] MEDS: PROTEASE PO SCH ×2 (08:18→20:57)
[2021-03-03] MEDS: LACTOBACILLUS ACIDOPHILUS (PROBIOTIC) CAPSULE PO SCH (08:19)
[2021-03-03] MEDS: APIXABAN 2.5 MG (ELIQUIS) TABLET PO SCH ×2 (08:19→20:56)
[2021-03-03] MEDS: meTOprolol TARTRATE 25 MG (LOPRESSOR) TABLET PO SCH ×2 (08:19→20:56)
[2021-03-03] MEDS: VITAMIN D3 25 MCG (1,000 UNITS) TABLET PO SCH (08:19)
[2021-03-03] MEDS: LORATADINE (CLARITIN) 10 MG TAB PO SCH (08:19)
[2021-03-03] MEDS: MIDODRINE 10 MG (PROAMATINE) TAB PO SCH ×3 (08:19→20:56)
[2021-03-03] MEDS: VITAMIN D3 125 MCG (5,000 UNITS) CAPSULE PO SCH (08:19)
[2021-03-03] MEDS: MUPIROCIN 2% OINT 22 GM (BACTROBAN) TUBE TP SCH ×2 (08:20→20:56)
[2021-03-03] MEDS: PANTOPRAZOLE 40 MG (PROTONIX) TAB PO SCH (08:20)
[2021-03-03 09:22] LABS: HEMATOCRIT 39 % (35-52); HEMOGLOBIN 12.8 g/dL (11.5-16.0); MEAN CORPUSCULAR HEMOGLOBIN 31 pg (25-34); MEAN CORPUSCULAR HGB CONC 33 g/dL (32-36); MEAN CORPUSCULAR VOLUME 94 fL (80-99); MEAN PLATELET VOLUME 11.6 fL (9.0-12.2); PLATELET COUNT 142 10^3/uL (130-400); WHITE BLOOD COUNT 5.8 10^3/uL (4.3-11.0)
[2021-03-03 09:43] LABS: CREATININE SERUM 1.04 MG/DL (0.60-1.30)
--- NOTE | 2021-03-03 10:55 | Physical Therapy Daily Note ---
PT Daily Note-Current Subjective Patient lying supine in bed upon PT arrival, agreeable to treatment. Currently rates pain at 0/10. Mental Status Patient Orientation: Person Transfers SCALE: Activities may be completed with or without assistive devices. 1-Mdmvmqxzms-rgdkwaz completes the activity by him/herself with no assistance from a helper. 5-Set-up or Clean-up Assistance-helper sets up or cleans up; patient completes activity. Wood assists only prior to or following the activity. 4-Supervision or Touching Assistance-helper provides verbal cues and/or touching/steadying and/or contact guard assistance as patient completes activity. Assistance may be provided throughout the activity or intermittently. 3-Partial/Moderate Assistance-helper does LESS THAN HALF the effort. Wood lifts, holds or supports trunk or limbs, but provides less than half the effort. 2-Substantial/Maximal Assistance-helper does MORE THAN HALF the effort. Wood lifts or holds trunk or limbs and provides more than half the effort. 0-Jlhagasle-yzctfg does ALL the effort. Patient does none of the effort to complete the activity. Or, the assistance of 2 or more helpers is required for the patient to complete the activity. If activity was not attempted, code reason: 7-Patient Refused. 9-Not Applicable-not attempted and the patient did not perform the activity before the current illness, exacerbation or injury. 10-Not Attempted due to Environmental Limitations-(lack of equipment, weather restraints, etc.). 88-Not Attempted due to Medical Conditions or Safety Concerns. Roll Left & Right (QC): 4 Sit to Lying (QC): 4 Lying to Sitting/Side of Bed(Q: 4 Sit to Stand (QC): 3 Chair/Uqb-db-Jrlwj Xfer(QC): 3 Gait Training Does the Patient Walk?: Yes Distance: 5 Walk 10 feet (QC): 88 Walk 50 ft with 2 Turns(QC): 88 Walk 150 ft (QC): 88 Gait Persons Needed: 1 Gait Assistive Device: FWW Wheelchair Training Does the Pt Use a Wheelchair?: No Exercises Seated Therapy Exercises: Ankle pumps, Long arc quads, Hip flexion, Hamstring Curls, Hip abd/add Seated Reps: 20 Treatments Visit, FA to improve ability to perform bed mobility and transfers, therapeutic exercise to increased LE and core strength and improve overall function Assessment Current Status: Fair Progress Patient tolerated treatment well. Demonstrates minimal improvement in bed mobility and transfers with increased core strength. Patient performs LE strengthening as listed above. Patient in chair post treatment with all needs met, nursing notified, call light in reach. PT Correction Goals Parts Salesperson Goals PT Correction Goals Time Frame: Mar 20, 2021 Roll Left & Right (QC): 5 Sit to Lying (QC): 5 Lying-Sitting on Side/Bed(QC): 5 Sit to Stand (QC): 5 Chair/Bzf-yd-Juvvd Xfer(QC): 5 Toilet Transfer (QC): 5 Does the Patient Walk: Yes Walk 10 feet (QC): 5 Walk 50ft with 2 Turns (QC): 5 Walk 150 ft (QC): 5 PT Plan Treatment/Plan Treatment Plan: Continue Plan of Care Treatment Plan: Bed Mobility, Education, Functional Activity Peggy, Functional Strength, Gait, Safety, Therapeutic Exercise, Transfers Treatment Duration: Mar 20, 2021 Frequency: 6 times per week Estimated Hrs Per Day: .25 hour per day Safety Risks/Education Patient Education: Transfer Techniques, Reviewed Precautions Teaching Recipient: Patient Teaching Methods: Demonstration, Discussion Response to Teaching: Verbalize Understanding Time/GCodes Time In: 934 Time Out: 1000 Total Billed Treatment Time: 26 Total Billed Treatment Visit, FA, EX KAILEY MCKEON PT Mar 03, 2021 10:55
[2021-03-03] MEDS: RT-ALBUTEROL HFA 8.5 GM INHALER IH SCH ×2 (11:06→19:13)
[2021-03-03] MEDS: DISOPYRAMIDE 100 MG PO SCH ×2 (11:29→20:56)
--- NOTE | 2021-03-03 11:40 | Progress Note - Hospitalist ---
Subjective HPI/CC On Admission Date Seen by Provider: Mar 03, 2021 Time Seen by Provider: 11:35 Pt is an 85yoCF with a PMH of a fib who presented to the ER due to weakness, SOB, and AMS. While she is alert and able to tell me about her chronic issues she does not remember much of yesterday. History obtained from the daughter and records. She apparently has not been feeling well for a week or so. She has a fall last week and had a CT of her head done by her PCP on 02/23. (This was negative for acute findings.) She was seen in the ER 2 days ago and was found to be in a-fib with RVR. Admission was recommended but she declined. She was seen by her PCP yesterday and was orthostatic with BP 70/40 with standing. She continued to have altered mentation and had slow speech per her daughter. Her daughter thought there was a right sided facial droop so brought her to the ER. She was found to be febrile and hypoxic. She is unvaccinated against COVID. She was tested and was found to be positive for COVID. This morning she has no complaints and just asks what landed her in the hospital. Subjective/Events-last exam Pt reports doing well. Other complaint is that she thinks her IV is turning off and On. We discussed that that is just the noise the pump makes as it distributes fluids. She is now off oxygen and has her glasses and hearing aides. She was relieved to have her glasses so she can read her texts. Focused Exam Lactate Level 03/01/21 23:50: Lactic Acid Level 1.19 Objective Exam Vital Signs Vital Signs Date Time Temp Pulse Resp B/P (MAP) Pulse Ox O2 Delivery O2 Flow Rate FiO2 03/03/21 11:08 95 Room Air 03/03/21 08:00 35.8 56 18 172/81 (111) 2.00 03/02/21 15:11 28 Capillary Refill : General Appearance: No Apparent Distress, WD/WN Respiratory: Lungs Clear, No Respiratory Distress Cardiovascular: No Murmur, Bradycardia (in 50s) Neurologic/Psychiatric: Alert, Oriented x3 Results/Procedures Lab Laboratory Tests 03/03/21 09:05 Patient resulted labs reviewed. Imaging: Reviewed Imaging Report Assessment/Plan Assessment and Plan Assess & Plan/Chief Complaint Acute hypoxic respiratory failure due to COVID19 AMS DEMETRA- POA CT head negative COVID + roughly 1 week sympatomic per dulce Started on remdesivir- will discuss with pharmacy about renal dose Continue decadron PT/OT IS MAT protocol Creatinine improved, saline lock A-fib chronic anticoagulation Continue home meds Decrease eliquis to renal dosing, will discuss with pharmacy if this needs adjusted now that labs improved DVT ppx: Eliquis as above NOE FELIZ MD Mar 03, 2021 11:40
[2021-03-03 12:00] VITALS: BP 142/58
[2021-03-03] MEDS ORDERED: REMDESIVIR INJ 100 MG in NS (IVPB) 230 ML IV SCH (14:30)
[2021-03-03 15:51] VITALS: BP 163/73
[2021-03-03 19:35] VITALS: BP 170/76
[2021-03-04 00:21] VITALS: BP 181/86
[2021-03-04 04:16] VITALS: BP 173/77
[2021-03-04 04:18] VITALS: BP 158/74
[2021-03-04 08:00] VITALS: BP 177/63
[2021-03-04] MEDS: PANTOPRAZOLE 40 MG (PROTONIX) TAB PO SCH (09:50)
[2021-03-04] MEDS: LORATADINE (CLARITIN) 10 MG TAB PO SCH (09:50)
[2021-03-04] MEDS: APIXABAN 2.5 MG (ELIQUIS) TABLET PO SCH (09:50)
[2021-03-04] MEDS: LACTOBACILLUS ACIDOPHILUS (PROBIOTIC) CAPSULE PO SCH (09:50)
[2021-03-04] MEDS: MIDODRINE 10 MG (PROAMATINE) TAB PO SCH ×2 (09:50→13:57)
[2021-03-04] MEDS: VITAMIN D3 125 MCG (5,000 UNITS) CAPSULE PO SCH (09:50)
[2021-03-04] MEDS: meTOprolol TARTRATE 25 MG (LOPRESSOR) TABLET PO SCH (09:50)
[2021-03-04] MEDS: ZINC SULFATE 220 MG CAPSULE PO SCH (09:50)
[2021-03-04] MEDS: VITAMIN D3 25 MCG (1,000 UNITS) TABLET PO SCH (09:50)
[2021-03-04] MEDS: DISOPYRAMIDE 100 MG PO SCH (09:51)
[2021-03-04] MEDS: MUPIROCIN 2% OINT 22 GM (BACTROBAN) TUBE TP SCH (09:51)
[2021-03-04] MEDS: PROTEASE PO SCH (09:52)
[2021-03-04] MEDS: RT-ALBUTEROL HFA 8.5 GM INHALER IH SCH (09:52)
[2021-03-04] MEDS: LIPASE PO SCH (09:52)
[2021-03-04] MEDS: AMYLASE PO SCH (09:52)
--- NOTE | 2021-03-04 11:10 | Physical Therapy Daily Note ---
PT Daily Note-Current Subjective Patient agrees to PT. She reports she is going home today. Mental Status Patient Orientation: Normal For Age Attachments: Hernandez Catheter Transfers SCALE: Activities may be completed with or without assistive devices. 1-Zqnhdtczlk-akuzqux completes the activity by him/herself with no assistance from a helper. 5-Set-up or Clean-up Assistance-helper sets up or cleans up; patient completes activity. Baxter assists only prior to or following the activity. 4-Supervision or Touching Assistance-helper provides verbal cues and/or touching/steadying and/or contact guard assistance as patient completes activi ty. Assistance may be provided throughout the activity or intermittently. 3-Partial/Moderate Assistance-helper does LESS THAN HALF the effort. Baxter lifts, holds or supports trunk or limbs, but provides less than half the effort. 2-Substantial/Maximal Assistance-helper does MORE THAN HALF the effort. Baxter lifts or holds trunk or limbs and provides more than half the effort. 9-Rltbeifgh-sbsvpp does ALL the effort. Patient does none of the effort to complete the activity. Or, the assistance of 2 or more helpers is required for the patient to complete the activity. If activity was not attempted, code reason: 7-Patient Refused. 9-Not Applicable-not attempted and the patient did not perform the activity before the current illness, exacerbation or injury. 10-Not Attempted due to Environmental Limitations-(lack of equipment, weather restraints, etc.). 88-Not Attempted due to Medical Conditions or Safety Concerns. Sit to Stand (QC): 3 Gait Training Does the Patient Walk?: Yes Distance: 150' Walk 10 feet (QC): 3 Walk 50 ft with 2 Turns(QC): 3 Walk 150 ft (QC): 3 CARGO CHECKER/patient will utilize FWW in home for safety (patient voices understanding) Exercises Seated Therapy Exercises: Ankle pumps, Long arc quads Seated Reps: 15 Assessment Patient tolerated treatment well. Did display mild SOA with activity. Patient up in recliner with needs met. Education with patient on importance of utilizing FWW in home for safety. Patient continues to voice understanding. PT Jail Goals Jail Goals PT Head Of Stock Goals Time Frame: Mar 20, 2021 Roll Left & Right (QC): 5 Sit to Lying (QC): 5 Lying-Sitting on Side/Bed(QC): 5 Sit to Stand (QC): 5 Chair/Jyp-tc-Wydxc Xfer(QC): 5 Toilet Transfer (QC): 5 Does the Patient Walk: Yes Walk 10 feet (QC): 5 Walk 50ft with 2 Turns (QC): 5 Walk 150 ft (QC): 5 PT Plan Treatment/Plan Treatment Plan: Continue Plan of Care Treatment Plan: Bed Mobility, Education, Functional Activity Peggy, Functional Strength, Gait, Safety, Therapeutic Exercise, Transfers Treatment Duration: Mar 20, 2021 Frequency: 6 times per week Estimated Hrs Per Day: .25 hour per day Time/GCodes Time In: 1040 Time Out: 1050 Total Billed Treatment Time: 10 Total Billed Treatment 1 visit GT 10 min GHISLAINE PEDRAZA PT Mar 04, 2021 11:10
--- NOTE | 2021-03-04 11:38 | D/C HH Face to Face Order ---
D/C Face to Face Orders Instructions for Patient [facility], Patient Instructions/FollowUp: Please continue to take your medications as written. Please follow up with Dr Eagle when you are out of isolation. Physician to follow Patient: Dr Eagle Discharge Diet for Home: No Restrictions Patient Data-Allergies,Ht & Wt Patient Allergies: Coded Allergies: amiodarone (Verified Allergy, Intermediate, LIGHTHEADED, 02/07/20) diltiazem (Verified Allergy, Intermediate, LIGHTHEADED, 02/07/20) flecainide (Verified Allergy, Intermediate, LIGHTHEADED, 02/07/20) adhesive tape (Verified Allergy, Unknown, 02/07/20) clopidogrel (Verified Allergy, Unknown, 02/07/20) diclofenac (Unverified Allergy, Unknown, Pt has received Motrin & Ketorolac int he past, 03/02/21) fludrocortisone (Verified Allergy, Unknown, Pt has received Solu-medrol in the past, 03/02/21) gluten (Verified Allergy, Unknown, 02/07/20) oxycodone (Verified Allergy, Unknown, Pt has received Lortab w/o issue, 02/07/20) tramadol (Unverified Allergy, Unknown, 02/07/20) SEVERE ITCHING Height (Feet): 4 Height (Inches): 10.00 Weight (Pounds): 132 Weight (Ounces): 0.0 Home Health Need/Face to Face Date of Face to Face: Mar 04, 2021 Clinical Findings: Generalized weakness and fatigue, Muscle weakness I have seen Pt bbtt-fz-vqjx: Yes Discharged To: Home Diagnosis/Conditions: COVID19, weakness Patient is Homebound due to: Muscle weakness Homebound Status Due to the above stated illness, injury or surgical procedure (medical condition or diagnosis) and associated clinical findings, the patient is homebound because of his/her inability to leave home except with aid of a supportive device and/or person AND leaving the home requires a considerable and taxing effort or is medically contraindicated. Pt req the following assistanc: Aid of another person, Walker Home Health Nursing Orders Home Health Services Order: Nursing Services, Physical Therapy-Evaluate & Treat Therapy Orders Therapy Orders: Physical Therapy, PT to assess for OT Therapy Specific Orders: Eval assistive deivces, Teach enviro modifications/saf ety, Gait training, Increase strength/endurance Certify Stmt I certify that this patient is under my care and that I, a nurse practitioner or a physician; a training assistant working with me, had a face to face encounter that - meets the physician face to face encounter requirements with this patient as dated. NOE FELIZ MD Mar 04, 2021 11:38
--- NOTE | 2021-03-04 11:50 | Discharge Summary ---
Diagnosis/Chief Complaint Date of Admission Mar 02, 2021 at 00:40 Date of Discharge Discharge Date: Mar 04, 2021 Admission Diagnosis Acute hypoxic respiratory failure due to COVID19 Primary Care Ryan Eagle DO Discharge Summary Discharge Physical Exam Allergies: Coded Allergies: amiodarone (Verified Allergy, Intermediate, LIGHTHEADED, 02/07/20) diltiazem (Verified Allergy, Intermediate, LIGHTHEADED, 02/07/20) flecainide (Verified Allergy, Intermediate, LIGHTHEADED, 02/07/20) adhesive tape (Verified Allergy, Unknown, 02/07/20) clopidogrel (Verified Allergy, Unknown, 02/07/20) diclofenac (Unverified Allergy, Unknown, Pt has received Motrin & Ketorolac int he past, 03/02/21) fludrocortisone (Verified Allergy, Unknown, Pt has received Solu-medrol in the past, 03/02/21) gluten (Verified Allergy, Unknown, 02/07/20) oxycodone (Verified Allergy, Unknown, Pt has received Lortab w/o issue, 02/07/20) tramadol (Unverified Allergy, Unknown, 02/07/20) SEVERE ITCHING Vitals & I&Os Vital Signs Date Time Temp Pulse Resp B/P (MAP) Pulse Ox O2 Delivery O2 Flow Rate FiO2 03/04/21 15:23 35.9 60 20 177/63 95 Room Air 2.00 03/02/21 15:11 28 General Appearance: No Apparent Distress, WD/WN Cardiovascular: Regular Rate, Rhythm, No Murmur Gastrointestinal: Normal Bowel Sounds, Soft Neurologic/Psychiatric: Alert, Oriented x3 Hospital Course Patient was admitted secondary to confusion and weakness due to COVID-19. She o riginally required minimal oxygen and was able to be titrated off of this. She was treated with remdesivir and Decadron though the remdesivir had to be discontinued due to renal function. Despite this she did very well and functioned well with physical therapy. She was discharged home with home health to follow-up with her primary care doctor Dr. Ji. Labs (last 24 hrs) Microbiology 03/02/21 Blood Culture - Preliminary, Resulted No growth Patient resulted labs reviewed. Imaging: Reviewed Imaging Report Discussion & Recommendations Discharge Planning: >30 minutes discharge planning Discharge Home Medications: Active Scripts Active Reported [Neuro-Ps] 1 Each PO HS Vitamin K (Phytonadione) 100 Mcg Tablet 100 Mcg PO DAILY Acai Ordoñez (Acai Ordoñez Extract) 500 Mg Capsule 1,000 Mg PO DAILY Garlic 1,000 Mg Capsule 1,000 Mg PO DAILY Vitamin D3 (Cholecalciferol (Vitamin D3)) 75 Mcg Tablet 150 Mcg PO DAILY Calcium Magnesium + D Tablet (Calcium Carb/Magnesium Oxid/D3) 1 Each Tablet 1 Each PO HS Norpace (Disopyramide Phosphate) 100 Mg Capsule 100 Mg PO BID Midodrine HCl 5 Mg Tablet 5 Mg PO TID Iprat-Albut 0.5-3(2.5) mg/3 ml (Ipratropium/Albuterol Sulfate) 3 Ml Ampul.neb 3 Ml NEB Q6H PRN Mupirocin 22 Gm Oint...g. 1 Applic TP BID APPLY TO RIGHT CHEEK Creon Dr 24,000 Units Capsule (Lipase/Protease/Amylase) 1 Each Capsule.dr 2 Ea P O BID Metoprolol Tartrate 50 Mg Tablet 25 Mg PO BID TAKES OF A 50MG TAB Protonix (Pantoprazole Sodium) 40 Mg Tablet.dr 40 Mg PO DAILY Potassium (Potassium Gluconate) 99 Mg Tablet 99 Mg PO HS Vitamin E (Vitamin E Mixed) 400 Unit Capsule 400 Unit PO DAILY Co Q-10 (Ubidecarenone) 400 Mg Capsule 400 Mg PO HS Latesha Allergy (Fexofenadine HCl) 180 Mg Tablet 180 Mg PO DAILY Probiotic (Lactobacillus Combo No.11) 1 Each Cap.sprink 1 Each PO DAILY Iron (Ferrous Sulfate, Dried) 160 Mg Tablet.er 65 Mg PO DAILY Eliquis (Apixaban) 5 Mg Tablet 5 Mg PO BID Glucosamine & Chondroitin Cap (Glucosa Olivera 2Kcl/Chondroitin Olivera) 1 Each Capsule 1 Each PO BID Niacin Flush Free 750 mg Cap (Niacin (Inositol Niacinate)) Unknown Strength Capsule 800 Mcg PO HS Zinc (Zinc Gluconate) 50 Mg Tablet 50 Mg PO DAILY Instructions to patient/family Please see electronic discharge instructions given to patient. NOE FELIZ MD Mar 04, 2021 11:50
[2021-03-04 15:23] VITALS: BP 177/63
== END 2021-03-04 15:29 | disposition home health service (06) | DRG 177 ==
LOC: EDUNIT# 23:27 → ER 23:28 → 4TH 03-02 00:40
PROVIDERS: ADMIT Family Medicine; ATTEND Family Medicine
PROC: XW033E5 Introduction of Remdesivir Anti-infective into Peripheral Vein, Percutaneous Approach, New Technology Group 5 (ICD-10-PCS; principal; 2021-03-02)
DX: U07.1 COVID-19 (principal); J96.21 Acute and chronic respiratory failure with hypoxia; N17.9 Acute kidney failure, unspecified; I48.91 Unspecified atrial fibrillation; J44.9 Chronic obstructive pulmonary disease, unspecified; Z86.73 Personal history of transient ischemic attack (TIA), and cerebral infarction without residual deficits; I10 Essential (primary) hypertension; M19.90 Unspecified osteoarthritis, unspecified site; G89.29 Other chronic pain; M54.9 Dorsalgia, unspecified; Z85.038 Personal history of other malignant neoplasm of large intestine; Z92.21 Personal history of antineoplastic chemotherapy; R41.0 Disorientation, unspecified; Z79.01 Long term (current) use of anticoagulants
CPT/HCPCS: 36415; 70450; 71045; 80048; 80053; 81000; 82805; 83605; 84145; 85025; 85027; 85379; 85610; 85730; 86141; 87040; 87636; 93005; 94640; 94760; 96360

== ENCOUNTER 2021-04-19 09:02 | Outpatient (RCR) | payer MEDICARE, OTHER ==
[2021-01-28 11:15] VITALS: BP 135/63
[~2021-04-19 09:02] MED LIST changes: +ACAI500C PO; +CALC-408 PO; +DISO100C3 PO; +GARL10002 PO; +GARL1TAB2 PO; +IPRA3AMP31 NEB; +MIDO5TAB3 PO; +MUPI22OI2 TP; +NEURO-PS PO
[2021-04-19 09:21] VITALS: BP 147/88
== END 2021-04-28 | disposition home or self-care (01) ==
LOC: SDC 09:02
PROVIDERS: ATTEND Internal Medicine
DX: Z45.2 Encounter for adjustment and management of vascular access device (principal)
CPT/HCPCS: 96523

== ENCOUNTER → 2021-04-28 | Outpatient (CLI) | payer MEDICARE, OTHER ==
--- NOTE | 2021-04-28 13:36 | Diagnostic Imaging Report ---
INDICATION: Left hand pain, trauma. COMPARISON: None. FINDINGS: Three views of the left hand demonstrate a nondisplaced fracture of the distal radial metaphysis. There is no intra-articular involvement. The ulna is intact. Advanced degenerative changes are seen involving the carpal bones. There is no unexpected radiopaque foreign body. IMPRESSION: Nondisplaced distal radial fracture. Dictated by: Dictated on workstation # [id number]
--- NOTE | 2021-04-28 14:21 | Diagnostic Imaging Report ---
CLINICAL INDICATION: Patient is status post fall and hit face. Patient has split open right side of the nose. EXAM: Axial Head CT without IV contrast with sagittal and coronal reformations. Axial Maxillofacial CT scan without IV contrast with sagittal and coronal reformations. Axial CT scan of the cervical spine with sagittal and coronal reformations. Auto Exposure Controls were utilized during the CT exam to meet ALARA standards for radiation dose reduction. COMPARISON: CT scan of the head and cervical spine without contrast dated 02/27/2021. FINDINGS: HEAD AND MAXILLOFACIAL CT: There is no evidence of acute cerebral infarct, intracranial hemorrhage, or gross mass effect. Brain parenchymal volume loss is again seen. There are multiple patchy confluent areas of low-attenuation white matter changes throughout both cerebral hemispheres and periventricular regions, likely related to chronic small vessel ischemic disease and leukoaraiosis. There is normal zuluaga-white matter distinction. There is no significant midline shift or herniation. There is no evidence of hydrocephalus. The basal cisterns are unremarkable. There is interval development of comminuted slightly displaced fractures involving the right and left nasal bones and frontal processes of the bilateral maxilla. There is a small amount of soft tissue swelling adjacent to the nose. There is no significant paranasal sinus disease. CERVICAL SPINE: There is no acute cervical spine fracture. There is grade 2 anterolisthesis of C3 on C4 and C4 on C5 which is degenerative with facet arthropathy. There is no acute pars defect. There is bony bridging/fusion of the C5 through C7 levels. There is anterolisthesis of the fused C6 on C7 with no significant neck soft tissue abnormality. The visualized upper lung marquis show no significant abnormality. An endovascular stent within the proximal left subclavian artery is noted. IMPRESSION: 1: There are comminuted and slightly displaced fractures involving the right and left nasal bone regions and frontal processes of the bilateral maxilla. There is soft tissue swelling adjacent to the region. 2: There is no other skull or maxillofacial fracture. There is no intracranial hemorrhage. 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 Dictated by: Dictated on workstation # [id number]
== END ==
LOC: RAD 13:04
PROVIDERS: ATTEND Physician Assistant
DX: S02.2XXA Fracture of nasal bones, initial encounter for closed fracture (principal); S52.502A Unspecified fracture of the lower end of left radius, initial encounter for closed fracture; M47.812 Spondylosis without myelopathy or radiculopathy, cervical region; W19.XXXA Unspecified fall, initial encounter
CPT/HCPCS: 70450; 70486; 72125; 73130